=== PATIENT | female | born 1985 | race Caucasian/White ===

== ENCOUNTER 2019-12-21 14:39 | Emergency (ER) | payer SELFPAY ==
[2019-12-21 14:42] VITALS: BP 122/82; PULSE 110; RESP 16; TEMP 37.1; O2SAT 94; BMI 30.1
--- NOTE | 2019-12-21 15:12 | XRR_ITS ---
PROCEDURE INFORMATION: Exam: XR Left Hip with Pelvis when Performed Exam date and time: 12/21/2019 3:13 PM Age: 34 years old Clinical indication: Right hip; Patient HX: Denies trauma C/O hip pain TECHNIQUE: Imaging protocol: XR Left hip with pelvis when performed. Views: 2 or 3 views. COMPARISON: No relevant prior studies available. FINDINGS: Bones/joints: Unremarkable. No acute fracture. Soft tissues: Unremarkable. XR/XR hip LT 2-3V wo/w pel* [id number] IMPRESSION: No acute findings.
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
[2019-12-21 15:48] LABS: Basophils % 0.1 %; Eosinophils # 0.4 10^3/uL (0.0-0.8); Eosinophils % 4.1 %; Hematocrit 41.9 % (37.0-47.0); Hemoglobin 13.5 g/dL (11.5-15.3); Lymphocytes # 2.3 10^3/uL (0.8-4.8); Lymphocytes % 21.5 %; Mean Corpuscular HGB Conc 32.2 g/dL (30.0-36.0); Mean Corpuscular Volume 96.1 fL (81-99); Mean Platelet Volume 8.3 fL (7.4-10.4); Monocytes # 0.9 10^3/uL (0.2-0.9); Monocytes % 8.3 %; Neutrophils % 65.7 %; Nucleated Red Blood Cells % 0 %; Platelet Count 441 10^3/cmm (130-400); Red Blood Count 4.36 10^6/uL (4.1-5.3); Red Cell Distribution Width 12.8 % (12.1-15.1); White Blood Count 10.7 10^3/uL (4.0-10.0)
[2019-12-21 16:03] VITALS: RESP 18
[2019-12-21] MEDS: morphine 4 mg/mL SDV 1 mL IVP (16:03)
[2019-12-21] MEDS: ketorolac 30 mg/mL INJ IVP (16:07)
[2019-12-21] MEDS: orphenadrine 30 mg/mL Inj 2 mL 60 MG IVP (16:10)
--- NOTE | 2019-12-21 16:11 | USR_ITS ---
PROCEDURE INFORMATION: Exam: US Duplex Left Lower Extremity Veins, Limited Exam date and time: 12/21/2019 4:12 PM Age: 34 years old Clinical indication: Pain; Leg, upper and leg, lower; Left; Additional info: Leg pain TECHNIQUE: Imaging protocol: Real-time Duplex ultrasound of the Left Lower Extremity with 2-D loving scale, color Doppler flow and spectral waveform analysis with image documentation. Limited exam focused on the left lower extremity veins. COMPARISON: No relevant prior studies available. FINDINGS: Left deep veins: Unremarkable. The common femoral, femoral, proximal profunda femoral and popliteal veins are patent without thrombus. Normal Doppler waveforms. Normal compressibility and/or augmentation response. Left superficial veins: Unremarkable. Saphenofemoral junction is patent without thrombus. Soft tissues: Unremarkable. US/CV venous duplex [facility] [id number] IMPRESSION: No evidence of deep vein thrombosis.
--- NOTE | 2019-12-21 16:11 | CTR_ITS ---
PROCEDURE INFORMATION: Exam: CT Lumbar Spine Without Contrast Exam date and time: 12/21/2019 4:29 PM Age: 34 years old Clinical indication: Low back pain; Patient HX: C/O lle radicular pain ? injury during seizure; Additional info: L lag radicular pain TECHNIQUE: Imaging protocol: Computed tomography images of the lumbar spine without contrast. Radiation optimization: All CT scans at this facility use at least one of these dose optimization techniques: automated exposure control; mA and/or kV adjustment per patient size (includes targeted exams where dose is matched to clinical indication); or iterative reconstruction. COMPARISON: No relevant prior studies available. RADIATION DOSE METRICS: Total DLP (mGy-cm): 2341.13 FINDINGS: Vertebrae: No acute fracture. Normal alignment. L1-L2: No significant disc protrusion. No severe spinal canal stenosis. No significant neural foraminal narrowing. L2-L3: No significant disc protrusion. No spinal canal stenosis. No neural foraminal narrowing. L3-L4: No significant disc protrusion. No severe spinal canal stenosis. No significant neural foraminal narrowing. L4-L5: As best seen on series 4, image 60, there is an asymmetric disc bulge. This, along with ligamentum flavum hypertrophy, results in moderate central canal stenosis. This disc bulge also extends to the foraminal and extraforaminal space on the left resulting in mass effect on the exiting left L4 nerve root. L5-S1: There is left paracentral disc protrusion and osteophyte as seen on series 4, image 71 resulting in moderate central canal stenosis. No significant neural foraminal narrowing. Soft tissues: Unremarkable. CT/CT lumbar spine wo con* [id number] IMPRESSION: Degenerative change is identified in the spine at L4/5 and L5/S1 as described above. If there is desire for further evaluation, a MRI could be performed. Radiation Dose CTDIVOL = (mGy): DLP = 2341.13 (mGy-cm)
[2019-12-21 16:25] LABS: Erythrocyte Sedimentation Rate 39 mm/hr (0-15)
--- NOTE | 2019-12-21 16:27 | CTR_ITS ---
PROCEDURE INFORMATION: Exam: CT Left Lower Extremity Without Contrast, Hip Exam date and time: 12/21/2019 4:29 PM Age: 34 years old Clinical indication: Left; Patient HX: C/O lle/hip pain ? injury during seizure TECHNIQUE: Imaging protocol: CT of the Left lower extremity without contrast was performed. Exam focused on the hip. Radiation optimization: All CT scans at this facility use at least one of these dose optimization techniques: automated exposure control; mA and/or kV adjustment per patient size (includes targeted exams where dose is matched to clinical indication); or iterative reconstruction. COMPARISON: CR (PELVIS, ) 12/21/2019 3:38 PM RADIATION DOSE METRICS: Total DLP (mGy-cm): 811.64 FINDINGS: Bones/joints: No acute fracture or dislocation. No significant joint space narrowing or osteophyte formation. Soft tissues: Normal. CT/CT hip LT wo con* [id number] IMPRESSION: There are no acute concerning abnormalities. Radiation Dose CTDIVOL = (mGy): DLP = 811.64 (mGy-cm)
[2019-12-21 18:27] VITALS: BP 120/77; PULSE 101; RESP 18; O2SAT 95
== END 2019-12-21 18:29 | disposition home or self-care (01) ==
PROVIDERS: Emergency Provider Family Medicine; PCP Nurse Practitioner
DX: M51.16 Intervertebral disc disorders with radiculopathy, lumbar region (principal); F17.210 Nicotine dependence, cigarettes, uncomplicated; I10 Essential (primary) hypertension
CPT/HCPCS: 12345; 36415; 72131; 73502; 73700; 85025; 85651; 93971; 96374; 96375; 99281; 99283; J1885; J2270; J2360; J2930

== ENCOUNTER → 2020-03-02 13:17 | Outpatient (BNVA) | payer MEDICAID, SELFPAY | PROVIDERS: PCP Nurse Practitioner; Visit Provider Nurse Practitioner Family | DX: N92.6 Irregular menstruation, unspecified (principal); K21.9 Gastro-esophageal reflux disease without esophagitis; R11.2 Nausea with vomiting, unspecified | CPT/HCPCS: 81025 ==

== ENCOUNTER 2020-03-23 10:06 | Emergency (ER) | payer MEDICAID, SELFPAY ==
[2020-03-23 11:06] VITALS: BP 155/102; PULSE 84; RESP 18; TEMP 36.7; O2SAT 100; BMI 35.4
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
== END 2020-03-23 11:52 | disposition home or self-care (01) ==
PROVIDERS: Emergency Provider Family Medicine; PCP Nurse Practitioner
DX: K08.89 Other specified disorders of teeth and supporting structures (principal); J01.00 Acute maxillary sinusitis, unspecified; I10 Essential (primary) hypertension; Z87.891 Personal history of nicotine dependence
CPT/HCPCS: 12345; 99281; 99282

== ENCOUNTER 2020-03-24 11:40 | Emergency (ER) | payer MEDICAID, SELFPAY ==
[2020-03-24 11:44] VITALS: BP 140/95; PULSE 76; RESP 14; TEMP 36.7; O2SAT 97; BMI 35.4
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
[2020-03-24] MEDS: HYDROcodone-acetaminophen 7.5-325 mg Tablet 1 TAB PO (12:32)
[2020-03-24] MEDS: ondansetron 4 MG Tablet PO (12:32)
[2020-03-24 12:44] VITALS: BP 134/84; PULSE 78; RESP 14; O2SAT 98
== END 2020-03-24 12:45 | disposition home or self-care (01) ==
PROVIDERS: Emergency Provider Nurse Practitioner Family; PCP Nurse Practitioner
DX: K04.7 Periapical abscess without sinus (principal); I10 Essential (primary) hypertension; Z87.891 Personal history of nicotine dependence
CPT/HCPCS: 12345; 99281; 99283; Q0162

== ENCOUNTER → 2020-04-02 10:25 | Outpatient (BNVA) | payer MEDICAID, SELFPAY | PROVIDERS: PCP Nurse Practitioner; Referring Provider Dermatology; Visit Provider Orthopaedic Surgery | DX: M51.27 Other intervertebral disc displacement, lumbosacral region (principal); M54.9 Dorsalgia, unspecified | CPT/HCPCS: 72114 ==

== ENCOUNTER 2020-04-07 07:30 | Outpatient (CLI) | payer MEDICAID, SELFPAY ==
--- NOTE | 2020-04-07 08:00 | MR_ITS ---
WS: [id number] MRI LUMBAR SPINE NONCONTRAST TECHNIQUE: Sagittal T1, T2 and STIR imaging. Axial T1 and T2 imaging. CLINICAL INFORMATION: M54.9 - Dorsalgia, unspecified COMPARISON: CT lumbar December 21, 2019 FINDINGS: Mild lumbar curve. No acute compression. Disc bulging worse L4-L5 and L5-S1. L1-L2: Normal. L2-L3: No significant disc bulging. Mild facet arthropathy. Spinal canal and foramen are patent. L3-L4: No significant disc bulging. Moderate facet arthropathy. Spinal canal and foramen are patent. L4-L5: Mild disc bulging with small shallow left subarticular protrusion. This impinges the traversin g left L5 nerve root in the subarticular recess. Correlation left L5 nerve root symptoms. Mild central canal stenosis. Mild right and no significant l eft foraminal narrowing. Moderate facet arthropathy. L5-S1: Mild disc bulging with a small shallow left pericentral protrusion. This impinges the traversi ng left S1 nerve root in the subarticular recess. Mild facet arthropathy. Foramen are patent. Visualized pelvic bony structures: Normal. Paravertebral soft tissues: Normal. MR/MR lumbar spine wo con* [id number] IMPRESSION: 1. Left subarticular disc protrusion L4-5 impinges the traversing left L5 nerv e root. Recommend correlation for L5 nerve root symptoms. Mild central canal st enosis at this level. 2. Smaller left pericentral protrusion L5-S1 slightly impinges the traversing left S1 nerve root. Recommend correlation left S1 nerve root symptoms. 3. Moderate facet arthropathy L3-L4 and L4-L5.
== END 2020-04-07 07:31 | disposition home or self-care (01) ==
PROVIDERS: PCP Nurse Practitioner; Visit Provider Orthopaedic Surgery
DX: M47.816 Spondylosis without myelopathy or radiculopathy, lumbar region (principal); M51.27 Other intervertebral disc displacement, lumbosacral region; M51.26 Other intervertebral disc displacement, lumbar region
CPT/HCPCS: 72148

== ENCOUNTER → 2020-04-22 18:02 | Outpatient (BNVA) | payer MEDICAID, SELFPAY | PROVIDERS: PCP Nurse Practitioner; Visit Provider Orthopaedic Surgery | DX: M48.062 Spinal stenosis, lumbar region with neurogenic claudication (principal) | CPT/HCPCS: 87635 ==

== ENCOUNTER 2020-04-27 07:52 | Day surgery (SDC) | payer MEDICAID, SELFPAY ==
[2020-04-24 12:40] VITALS: BMI 35.4
[2020-04-27] VITALS (7 sets, daily range): BP systolic 105–146; BP diastolic 83–114; PULSE 73–97; RESP 8–19; TEMP 36.1–36.6; O2SAT 94–100
--- NOTE | 2020-04-27 | SCC_ITS ---
Procedure Done: 1. Laminectomy L4/5 with partial facetectomy 2. Laminectomy L5/S1 with partial facetectomy 19.0 seconds of fluoroscopic guidance, for a cumulative dose of 7.59 mGy, was provided to Dr. Gupta by the radiology department. C-arm images of the lumbar spine were saved for the patient's permanent record. [facility]
--- NOTE | 2020-04-27 | XR_ITS ---
WS: [id number] C-ARM RADIOGRAPHS LUMBAR SPINE; 4 IMAGES HISTORY: L4/L5 L5/S1 MIS decompression COMPARISON: 04/07/2020 Intraoperative imaging during L4-5 and L5-S1 decompression. XR/XR lumbar spine 2-3V* [id number] IMPRESSION: Intraoperative imaging during decompression surgery lumbar spine.
[2020-04-27 08:13] LABS: OR HCG Qualitative Urine Negative (Negative)
[2020-04-27] MEDS: sodium chloride 0.9% 1,000 ML 30 ML IV (08:24)
--- NOTE | 2020-04-27 08:25 | W.PM.OPSUD ---
Surgery/Procedure H&P Update DATE OF PROCEDURE: April 27, 2020 DATE H&P PERFORMED: 04/10/20 H&P UPDATE INFORMATION: I have reviewed H&P completed within last 30 days, I have examined patient prior to procedure and No changes to prior documentation PLANNED PROCEDURE: Operation Date: 04/27/20 09:40 Proposed Procedures p L 4/5 L5/S1 MIS decompression [id number] M48.06(Bilateral) - Billy Gupta DO
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
[2020-04-27] MEDS: midazolam 1 mg/mL INJ 2 mL 2 MG IVP (08:40)
--- NOTE | 2020-04-27 10:56 | PM.OP ---
Operative Report Date of procedure: April 27, 2020 Pre-op Diagnosis: Lumbar stenosis L4/5 and L5/S1 Post-op diagnosis: same Procedure Done: 1. Laminectomy L4/5 with partial facetectomy 2. Laminectomy L5/S1 with partial facetectomy Surgeon: Billy Gputa Anesthesia: General Estimated blood loss (mL): 5 Condition: stable Disposition: PACU Procedure: 1. Laminectomy L4/5 with partial facetectomy 2. Laminectomy L5/S1 with partial facetectomy Patient is brought to the operative suite. After undergoing anesthesia they are placed in the supine position. All areas of impingement are well padded. Patient is then prepped and draped in the normal sterile fashion. A skin incision is made over the L4/5/S1 level. This is confirmed under c-arm guidance. A series of dilators are passed and the tubular retractor is docked on the L4 lamina. A bovie is used to clear the soft tissue off the lamina and the L 4/5 facet joint. A high speed neetu is then used to perform the laminectomy and take down the medial aspect of the L 4/5 facet joint. A kerrison rongeure was then used to take down the remaining lamina and smooth the edge of the laminectomy up to the point where the ligamentum flavum attaches. Attention was then brought to the medial aspect of the facet joint. The remaining medial aspect of the superior and inferior aspect of the facet joint were taken down with the kerrison from the pedicle of L4 to L 5. The facet joint had significant hypertrophy. Attention was then brought to the Ligamentum Flavum. The ligament was taken down from the lamina of L4 to L5 and out medially to the remaining facet joint. The ligament was thickened. The dura was then exposed. The dura was in good repair. The L4 nerve was then traced with a curette out the L4/5 foramen and found to be adequately decompressed. The L5 nerve was traced with a curette around the L5 pedicle. The lateral recess was opened with a kerrison helping to further decompress the L5 nerve. Next attention was brought to the L5-S1 level. A series of dilators are passed and the tubular retractor is docked on the L4 lamina. A bovie is used to clear the soft tissue off the lamina and the L 5/S1 facet joint. A high speed neetu is then used to perform the laminectomy and take down the medial aspect of the L 5/S1 facet joint. A kerrison rongeure was then used to take down the remaining lamina and smooth the edge of the laminectomy up to the point where the ligamentum flavum attaches. Attention was then brought to the medial aspect of the facet joint. The remaining medial aspect of the superior and inferior aspect of the facet joint were taken down with the kerrison from the pedicle of L5 to S1. The facet joint had significant hypertrophy. Attention was then brought to the Ligamentum Flavum. The ligament was taken down from the lamina of L5 to S1 and out medially to the remaining facet joint. The ligament was thickened. The dura was then exposed. The dura was in good repair. The L5 nerve was then traced with a curette out the L5/S1 foramen and found to be adequately decompressed. The L5 nerve was traced with a curette around the S1 pedicle. The lateral recess was opened with a kerrison helping to further decompress the S1 nerve. This space was inspected. There is no evidence of any free disc or disc impinging on the S1 nerve after the decompression was completed. At this point I elected to leave the disc alone. Wound is then irrigated copiously with saline and surgiflo is used to stop any bleeding. The tubular retractor is removed and the wound is closed with vicryl and monocryl suture. Glue is then used to protect the wound. A sterile dressing is then placed. Patient was then placed in the supine position and transferred to the PACU in stable condition.
--- NOTE | 2020-04-27 11:14 | P.PCN_ITS ---
PACU note PACU note: VSS, Good respiratory effort, report to RAILROAD POLICE OFFICER Post-Anesthesia Exam: awake
--- NOTE | 2020-04-27 11:14 | PM.PACU ---
PACU note PACU note: VSS, Good respiratory effort, report to RISK PROFESSIONAL Post-Anesthesia Exam: awake
[2020-04-27] MEDS: fentaNYL 50 mcg/mL INJ 2mL IVP (11:20)
--- NOTE | 2020-04-27 11:30 | SUR.PHASEI ---
PT RESTING QUIETLY WITH NO S/S OF PAIN , VSS IV PATENT SCDS ON BILAT, PT MOVES ALL EXT TO COMMAND, PT ON RA TRIAL.
[2020-04-27] MEDS: HYDROcodone-acetaminophen 5-325 mg Tablet 1 TAB PO (11:53)
== END 2020-04-27 12:22 | disposition home or self-care (01) ==
PROVIDERS: Anesthesiology; PCP Nurse Practitioner; Visit Provider Orthopaedic Surgery
PROC: (CPT 63005; principal; 2020-04-27 09:10)
DX: M48.061 Spinal stenosis, lumbar region without neurogenic claudication (principal); I10 Essential (primary) hypertension; Z87.891 Personal history of nicotine dependence
CPT/HCPCS: 63047; 63048; 12345; 72100; 76000; 84703; 96374; J0690; J1100; J2250; J2405; J2704; J2710; J3010; J3490; J7030

== ENCOUNTER 2020-07-13 12:42 | Outpatient (CLI) | payer MEDICAID, SELFPAY ==
--- NOTE | 2020-07-13 12:56 | MR_ITS ---
WS: [id number] MRI LUMBAR SPINE NONCONTRAST HISTORY: M54.5 - Low back pain COMPARISON: 04/07/2020 TECHNIQUE: Sagittal and axial multisequence imaging is submitted. Mild straightening of the normal lumbar lordosis. Mild disc space narrowing and desiccation at L4-5 a nd L5-S1. No marrow edema or fracture. New postsurgical changes are noted in the paravertebral soft tissues at the L4-5 level. There is a small amount of fluid and edema surrounding the L4-5 facet joints. Conus terminates normally at L1. L1-L2: Normal. L2-L3: Normal. L3-L4: Mild annular disc bulging with slight effacement of the ventral thecal sac. No stenosis. L4-L5: Mild annular disc bulge. There is encroachment upon the ventral thecal sac by disc disease and facet arthritis. Annular fissure in the LEFT paracentral disc. There is soft tissue encroachment upo n the LEFT L5 nerve root and slight compressing of the nerve root. Very similar to the prior study. T here is mild bulging of the disc extending into the LEFT foramen. Increase fluid in the facet joints bilaterally with mild widening of the facet joint. There is a new LEFT hemilaminectomy defect. Partia l debridement of the ligamentum flavum on the LEFT. L5-S1: Mild annular disc bulging with a central disc protrusion contacting the ventral thecal sac. Di sc encroaches upon and abuts the LEFT S1 nerve root. S1 nerve root is slightly greater than the RIGHT and there is more displacement. Mild bilateral foraminal narrowing and subarticular recess narrowing . Similar to the prior study. MR/MR lumbar spine wo con* [id number] IMPRESSION: 1. Status post surgical changes at L4-5 with a LEFT hemilaminectomy defect. No postcontrast imaging submitted. 2. Disc osteophyte complex persists in the LEFT subarticular recess at L4-5 en croaching upon and slightly displacing the LEFT L5 nerve root. Similar to the p rior study. Mild central stenosis at L4-5. 3. Increased fluid with slight widening of the L3-4 facet joints. 4. Central disc protrusion contacting the ventral thecal sac and the LEFT S1 n erve root similar to the prior study. Mild bilateral foraminal and subarticular recess narrowing, greatest on the LEFT.
== END 2020-07-13 12:43 | disposition home or self-care (01) ==
LOC: RADWPI 12:51
PROVIDERS: PCP Nurse Practitioner; Visit Provider Orthopaedic Surgery
DX: M54.5 Low back pain (principal); M53.3 Sacrococcygeal disorders, not elsewhere classified; M48.061 Spinal stenosis, lumbar region without neurogenic claudication; M25.78 Osteophyte, vertebrae
CPT/HCPCS: 72148

== ENCOUNTER → 2020-07-21 16:51 | Outpatient (BNVA) | payer MEDICAID, SELFPAY | PROVIDERS: PCP Family Medicine; Visit Provider Family Medicine | DX: Z01.818 Encounter for other preprocedural examination (principal) | CPT/HCPCS: 71046 ==

== ENCOUNTER → 2020-08-05 16:31 | Outpatient (BNVA) | payer MEDICAID, SELFPAY | PROVIDERS: PCP Family Medicine; Visit Provider Orthopaedic Surgery | DX: Z01.812 Encounter for preprocedural laboratory examination (principal); Z20.822 Contact with and (suspected) exposure to COVID-19 | CPT/HCPCS: 87635 ==

== ENCOUNTER 2020-08-10 12:24 | Observation (INO) | payer MEDICAID, SELFPAY ==
[2020-08-03 10:37] VITALS: BMI 39.1
[2020-08-03 11:18] LABS: Basophils % 0.2 %; Eosinophils # 0.4 10^3/uL (0.0-0.8); Eosinophils % 3.9 %; Hematocrit 42.5 % (37.0-47.0); Hemoglobin 13.6 g/dL (11.5-15.3); Lymphocytes # 2.5 10^3/uL (0.8-4.8); Lymphocytes % 26.9 %; Mean Corpuscular Hemoglobin 31.4 pg (28.0-34.0); Mean Corpuscular Volume 98.2 fL (81-99); Mean Platelet Volume 8.7 fL (7.4-10.4); Monocytes # 0.8 10^3/uL (0.2-0.9); Monocytes % 8.8 %; Neutrophils # 5.47 10^3/uL (1.8-7.7); Nucleated Red Blood Cells % 0 %; Platelet Count 473 10^3/cmm (130-400); Red Blood Count 4.33 10^6/uL (4.1-5.3); Red Cell Distribution Width 12.5 % (12.1-15.1); White Blood Count 9.1 10^3/uL (4.0-10.0)
[2020-08-03 11:32] LABS: Blood Urea Nitrogen 14 mg/dL (6-20); Carbon Dioxide 26 mmol/L (22-29); Chloride 101 mmol/L (98-107); Glomerular Filtration Rate 95.2 mL/min (90-130); Glucose 97 mg/dL (65-115); Osmolality Calculated 284 mOsm/kg (285-295); Sodium 137 mmol/L (136-145)
[2020-08-03 11:34] LABS: Anion Gap 14.7 (5-19); Potassium 4.7 mmol/L (3.5-5.1)
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
[2020-08-10] VITALS (18 sets, daily range): BP systolic 91–141; BP diastolic 69–85; PULSE 80–97; RESP 14–20; TEMP 36.2–37.1; O2SAT 92–99
--- NOTE | 2020-08-10 | XRR_ITS ---
PROCEDURE INFORMATION: Exam: XR Spine; Lumbar Exam date and time: 08/11/2020 11:58 AM Age: 34 years old Clinical indication: Device placement; Other: Not specifed; Prior surgery; Surgery date: Post-operative (0-2 days); Additional info: Or pics TECHNIQUE: Imaging protocol: XR of the spine. Exam focused on the lumbar spine. Views: Single lateral view. COMPARISON: MR lumbar spine wo con* [id number] 07/13/2020 1:09 PM FINDINGS: Bones/joints: Bilateral interval L4 and L5 pedicle screw systems imaged in the lateral plane, which appear well positioned. Soft tissues: Normal. XR/XR lumbar spine 1V [id number] IMPRESSION: Postoperative changes as above.
--- NOTE | 2020-08-10 | SCC_ITS ---
Procedure Done: 1. L4/5 Interbody fusion with posterolateral fusion 2. L5/S1 Interbody fusion with posterolateral fusion 3. Instrumentation L4-S1 4. Cage L5/S1 5. Cage at L4/5 6. Laminectomy revison L4 for decompression of nerve 7. Lamimectomy revision L5 for decompression of nerve 8. use of autograft from same incision 9. allograft 10. Bone marrow aspirate from Right iliac crest 44.3 seconds of fluoroscopic guidance, for a cumulative dose of 21.83 mGy, was provided to Dr. Gupta by the radiology department. C-arm images of the lumbar spine were saved for the patient's permanent record. [facility]
--- NOTE | 2020-08-10 06:37 | W.PM.OPSUD ---
Surgery/Procedure H&P Update DATE OF PROCEDURE: August 10, 2020 DATE H&P PERFORMED: 07/14/20 H&P UPDATE INFORMATION: I have reviewed H&P completed within last 30 days, I have examined patient prior to procedure and No changes to prior documentation PREOP DIAGNOSIS: lumbar stenosis PLANNED PROCEDURE: Operation Date: 08/10/20 07:00 Proposed Procedures p Posterior Lumbar Interbody Fusion PLIF L4/5 L5/S1 [id number] 63711,60254, 96915, 26005, 26669, 28149 m48.062(Not Applicable) - Billy Gupta DO
[2020-08-10] MEDS: sodium chloride 0.9% 1,000 ML 30 ML IV (06:45)
--- NOTE | 2020-08-10 07:16 | P.ANESUD_ITS ---
Pre-Anesthetic Update Pre-Anesthetic Assessment: Date of Surgery/Procedure: 08/10/20 Preop Cyndy gnosis: lumbar stenosis Proposed Procedure: Operation Date: 08/10/20 07:00 Proposed Procedures p Posterior Lumbar Interbody Fusion PLIF L4/5 L5/S1 [id number] 79339,58059, 52531, 09314, 21561, 00268 m48.062(Not Applicable) - Billy Gupta, DO Any changes to Pre-Anesthetic Assessment?: No Vitals: Temperature 98.3 F 08/10/20 06:13 Temperature Source Temporal Artery S can 08/10/20 06:13 Pulse Rate 81 08/10/20 06:13 Respiratory Rate 16 08/10/20 06:13 Blood Pressure 118/76 08/10/20 06:13 Blood Pressure Pepper n 90 08/10/20 06:13 Pulse Oximetry 97 08/10/20 06:13 Oxygen Delivery Me thod 08/10/20 06:28 Exam: Pre-Anes Outpt Exam: alert, oriented x 3, clear to auscultation bilaterally and regular rate & rhythm Cardiac Studies: No Data to Display
[2020-08-10] MEDS: heparin, porcine 1,000 unit/mL INJ 10 mL 10000 UNIT IRRIGATION (08:11)
--- NOTE | 2020-08-10 09:27 | XR_ITS ---
WS: [id number] C-ARM RADIOGRAPHS LUMBAR SPINE 4; IMAGES HISTORY: SURGERY COMPARISON: 04/27/2020 Intraoperative imaging during lumbar fusion. Pedicle screws extend from L4 to S1. Vertical rods are p resent. Interbody spacers at L4-5 and L5-S1. XR/XR lumbar spine 2-3V* [id number] IMPRESSION: Intraoperative imaging during posterior lumbar fusion from L4 to S1.
[2020-08-10] MEDS: ceFAZolin 1,000 mg SDV 2000 MG IVP (11:48)
--- NOTE | 2020-08-10 12:42 | P.OP_ITS ---
Operative Report Date of procedure: August 10, 2020 Pre-op Diagnosis: lumbar stenosis Post-op diagnosis: same Procedure Done: 1. L4/5 Interbody fusion with posterolateral fusion 2. L5/S1 Interbody fusion with posterolateral fusion 3. Instrumentation L4-S1 4. Cage L5/S1 5. Cage at L4/5 6. Laminectomy revison L4 for decompression of nerve 7. Lamimectomy revision L5 for decompression of nerve 8. use of autograft from same incision 9. allograft 10. Bone marrow aspirate from Right iliac crest Surgeon: Billy Gupta Anesthesia: General Estimated blood loss (mL): 100 Condition: stable Disposition: PACU Procedure: mentation L4-S1 4. Cage L5/S1 5. Cage at L4/5 6. Laminectomy revison L4 for decompression of nerve 7. Lamimectomy revision L5 for decompression of nerve 8. use of autograft from same incision 9. allograft 10. Bone marrow aspirate from Right iliac crest Patient is brought to the operative suite. After undergoing anesthesia, the patient had neuro monitoring attached. Patient was then placed in the prone position on the Prabhu table. All areas of impingement were well-padded. Patient was then prepped and draped in the normal sterile fashion. Skin incision was then made over the L4- S1 spaces. Subperiosteal dissection was made out to the transverse processes of L4 and L5 and S1. Once the exposure was complete attention was then brought to placing the pedicle screws. Prior to placing the pedicle screws the [employer] bone marrow aspirate kit was used to aspirate bone marrow aspirate from Right iliac crest. This was done by using the sharp probe to open up the bone. Aspiration was performed and then the blunt probe was then used to dissect down to through the bone tunnel. An aspirating well drawn back a millimeter approximately 20 cc of bone marrow aspirate was used. Admixed with the allograft and autograft bone that will be used. The technique for placing the pedicle screws was to use a drill followed by the gearshift probe. Followed by the ball probe to feel the superior inferior medial lateral madrid of the pedicles. Then placement of the screws. Was done at each pedicle. Screws were placed at L4 bilaterally and L5 and S1. Next attention was brought to performing the laminectomy ofL4. There was significant scar tissue this was peeled off of the dura. This was done using the high-speed bur Kerrisons and curettes. Once the lamina was removed and then attention was brought to performing a partial facetectomy on the contralateral side. This was done again using the high-speed bur curettes and Kerrisons. The ligamentum flavum was taken down bilaterally from L4 to L5. Attention was then brought to the facet on the ipsilateral side. The facet was taken down. The L5 nerve was decompressed as it passed around the L5 pedicle. The laminectomy was done for purposes of decompressing the nerve as well as placement of the cage. The L4 nerve was identified as it traversed through the L4/5 foramen. The thecal sac was identified and retracted. The L4/5 disc base was identified. Using a knife the disc base was opened. And then sequential quoc were placed. The first shaver was a 6 and the last shaver was a 10. Using a pituitary and down going curette the endplates were scraped and disc material was removed from the space. Once adequate decompression of the disc base was felt to be had. Osteoamp sponge was packed into the anterior aspect of the disc base. Then a size 10 cage from Jackelin was placed after packing osteoamp into the cage. While placing the cage the thecal sac and L5 nerve was protected. C arm was used to ensure that the cages placed in the appropriate position. Next attention was brought to performing the laminectomy ofL5. This was done using the high-speed bur Kerrisons and curettes. Once the lamina was removed and then attention was brought to performing a partial facetectomy on the contralateral side. This was done again using the high-speed bur curettes and Kerrisons. The ligamentum flavum was taken down bilaterally from L5 to S1. Attention was then brought to the facet on the ipsilateral side. The facet was taken down. The S1 nerve was decompressed as it passed around the S1 pedicle. The laminectomy was done for purposes of decompressing the nerve as well as placement of the cage. The L5 nerve was identified as it traversed through the L5/S1 foramen. The thecal sac was identified and retracted. The L5/S1 disc base was identified. Using a knife the disc base was opened. And then sequential quoc were placed. The first shaver was a 6 and the last shaver was a 9. Using a pituitary and down going curette the endplates were scraped and disc material was removed from the space. Once adequate decompression of the disc base was felt to be had. Osteoamp sponge was packed into the anterior aspect of the disc base. Then a size 9 cage from Jackelin was placed after packing osteoamp into the cage. While placing the cage the thecal sac and S1 nerve was protected. C arm was used to ensure that the cages placed in the appropriate position. Attention was then brought to attaching the rods to the screws placed in the L4, L5 and S1 bilaterally. Caps were torqued into position. Locking the construct in place. Wound was copiously irrigated and then attention was brought to decorticating the facets and transverse processes laterally. Bone that was taken down from the lamina was used along with osteoamp fibers and sponges were packed into the lateral gutters along the facet joints. This was done bilaterally. Wound was then closed in a layered fashion starting with the thoracolumbar fascia. 0-stratafixwas used the sub cutaneous tissue was closed with 2-0 vstratafix and skin with 3-0 nylon. Glue was then used to seal the skin and a steril dressing was applied. Patient was then placed in the supine position. The endotracheal tube was removed and patient was transferred to the PACU in stable condition.
[2020-08-10] MEDS: ketorolac 30 mg/mL INJ IVP (13:34)
[2020-08-10] MEDS: lactated ringers 1,000 ML 90 ML IV ×2 (14:12→23:42)
[2020-08-10] MEDS: gabapentin 400 mg Capsule 800 MG PO ×2 (14:12→20:58)
[2020-08-10] MEDS: hyDROXYzine 25 mg Capsule 50 MG PO (14:34)
[2020-08-10] MEDS: baclofen 10 mg Tablet PO (14:35)
--- NOTE | 2020-08-10 14:50 | PC.NURSE ---
During rounding, patient stated she was in severe pain and was noted to have shallow breathing and was notably upset. I called and spoke with Dr. Gupta and informed him that the patient had taken Hydrocodone and Toradol and her pain continued to be uncontrolled. He provided a verbal order for Morphine 2 mg IVP every 2 hours for severe, breakthrough pain if PO medications do not effectively control pain. I spoke with Karen Martinez RN and informed her of the above information. She verbalizes understanding.
[2020-08-10] MEDS: morphine 4 mg/mL SDV 1 mL 2 MG IVP ×3 (14:55→23:40)
--- NOTE | 2020-08-10 14:56 | ANE.PACU2 ---
Inpatient post-anesthesia follow up: Airway intact: Yes Vital signs: Temperature 98.0 F Pulse Rate 83 Respiratory Rate 19 Blood Pressure 140/69 Pulse Oximetry 98 Oxygen Delivery Me thod Nasal Cannula Oxygen Flow Rate 6 Fraction of Inspir ed Oxygen Hydration adequate: Yes Nausea and vomiting: No Pain level: 3 Mental status: Baseline
[2020-08-10] MEDS: albuterol 8 gm MDI 1 PUFF INHALATION (16:03)
--- NOTE | 2020-08-10 16:42 | PC.NURSE ---
At approximately 1615, patient continued to be in increased pain and Presley Martinez RN was going to administer additional dose of Hydrocodone-APAP per range protocol, however the MAR would not allow for additional scanning of the additional tablet d/t the PRN dose not being at the minimum of the 3 hour yamile to administer the medication again. I called and spoke with Lavell Shearer, pharmacist and he states he isn't sure how to do this and would suggest adding a 1-time dose order to administer the medication. I called and spoke with Anurag Hernandez in IT and he initiated a ticket with nursing IT to help. I received a return call from Ariane Miranda RN in IT at approximately 1640 and she states to undo the administration that occurred at 1413, make a new administration when administering the 2nd tablet and make an administration comment stating that the first dose was given at 1413 while IT looks for a terminal press operator solution for this. I spoke with Presley Martinez RN and informed her of this. She verbalizes understanding and states she will have Halie Rivera RN undo her documentation at 1413 and Karen will administer the additional tablet and make an administration note to support both tablets being given.
[2020-08-10] MEDS: HYDROcodone-acetaminophen 5-325 mg Tablet PO ×2 (16:48→21:08)
--- NOTE | 2020-08-10 16:52 | PC.NURSE ---
1 [place] 5-325 administered at 1415 by Halie Rivera RN. Patient still rating pain 10/10 after various pain medications. Halie undocumented her medication administration so that I could give a second pill for the patients severe pain. at 1648 I administered another [place] 5-325. I personally documented 2 norcos to document the one given by myself and Halie.
[2020-08-10] MEDS: BuSPIRONE 10 mg Tablet PO (18:52)
[2020-08-10] MEDS: docusate sodium 100 mg Capsule PO (18:52)
[2020-08-10] MEDS: propranolol 40 mg Tablet PO (18:52)
[2020-08-10] MEDS: levETIRAcetam 500 mg Tablet PO (18:52)
[2020-08-11] MEDS: HYDROcodone-acetaminophen 5-325 mg Tablet PO ×2 (01:41→07:54)
[2020-08-11 04:40] VITALS: BP 144/85; PULSE 86; RESP 18; TEMP 36.7; O2SAT 96
[2020-08-11 05:50] VITALS: RESP 17
[2020-08-11] MEDS: morphine 4 mg/mL SDV 1 mL 2 MG IVP (05:50)
[2020-08-11] MEDS: enoxaparin 40 mg/0.4 mL Syringe SUBCUT (06:13)
--- NOTE | 2020-08-11 06:18 | PM.DCS ---
Discharge Providers Date of Admission: 08/10/20 12:24 Date of Discharge: August 11, 2020 Attending Provider at Admission: Billy Gupta DO Attending Provider at Discharge: Billy Gupta DO Primary Care Provider: Citlaly Stevens MD Reason for Visit Reason for Visit: PLIF L4/5 L5/S1 [id number],[id number] 98737,40239, 17086, 22 Physical Exam Narrative: EXAM NARRATIVE: Patient doing well pain controlled has been up walking. Pain that she was having has resolved. Urinary Catheter Management^: F: Cath Placed During This Visit: yes, but has since been removed by the nurse Reason for Continuing Indwelling Catheter: Decision to DC Catheter Urinary Catheter Date of Insertion: 08/10/20 Urinary Catheter Time of Insertion: 07:20 Date Urinary Catheter Removed: 08/10/20 Time Urinary Catheter Discontinued: 13:00 Discharge Data Data Completed and Pending: Pending at discharge Category Date Time Status C-arm Fluoroscopy 21792 Routine Exams 08/10/20 06:03 Taken XR lumbar spine 1 V port 40799 Routi ne Exams 08/10/20 Taken XR lumbar spine 2 -3V* [id number] Routine Exams 08/10/20 09:27 Taken Vitals: Last Vital Signs Temp 98.1 F 08/11/20 04:40 Pulse 86 08/11/20 04:40 Resp 17 08/11/20 05:50 BP 144/85 08/11/20 04:40 Pulse Ox 96 08/11/20 04:40 Discharge Plan Discharge Patient Disposition: Home Condition: Stable Prescriptions: New hydrocodone-acetaminophen 5-325 mg tablet 1 - 2 tab PO .Q4-6H Qty: 40 RF: 0 Continued bmpbzpthqo-xxbvdyhommdyt-kvml [Esgic] 50-325-40 mg tablet 1 tab PO Q6H PRN (Reason: pain) Qty: 30 RF: 2 gabapentin 800 mg tablet 800 mg PO TID Qty: 90 RF: 2 propranolol 40 mg tablet 40 mg PO BID Qty: 60 RF: 2 zonisamide [Zonegran] 100 mg capsule 100 mg PO DAILY Qty: 30 RF: 2 buspirone 10 mg tablet 10 mg PO BID Qty: 60 RF: 3 rizatriptan [Maxalt-LIBRARY CIRCULATION TECHNICIAN] 10 mg tablet,disintegrating See Rx Instructions PO .COMPLEX Qty: 12 RF: 4 fluticasone propionate 50 mcg/actuation spray,suspension 2 spray INTRANASAL DAILY Qty: 16 RF: 2 albuterol sulfate 90 mcg/actuation HFA aerosol inhaler 1 inh INHALATION QID PRN (Reason: shortness of breath or wheezing) Qty: 18 RF: 2 Qvar RediHaler 80 mcg/actuation HFA aerosol breath activated 1 inh INHALATION BID Qty: 10.6 RF: 2 Aimovig Autoinjector 140 mg/mL auto-injector 140 mg SUBCUT .monthly Qty: 1 RF: 11 (DME) Bone growth Stimulator E0748 See Rx Instructions .Route .MEDSUPPLY Qty: 1 RF: 0 hydrocodone-acetaminophen 5-325 mg tablet 1 tab PO Q8H PRN (Reason: pain) 7 Days Qty: 60 RF: 0 levetiracetam [Keppra] 500 mg tablet 500 mg PO BID RF: 0 baclofen 10 mg tablet 10 mg PO TID PRN (Reason: Migraine Headache) RF: 0 ibuprofen 200 mg Capsule 400 mg PO Q6H PRN (Reason: Pain) RF: 0 hydroxyzine HCl 50 mg tablet 50 mg PO TID PRN (Reason: Migraine Headache) RF: 0 Discharge Orders: Discharge Order (Routine); Ordered 08/11/20 Ordered By: Billy Gupta Discharge Diet: Advance as tolerated and Regular Discharge Activity: Limit activity as instructed Patient Instructions: Opioid Safety Activity Restrictions/Additional Instructions: Thank you for [facility] for your care! The following is a list of instructions, from your provider, to follow upon your discharge to ensure you have the optimal recovery from your recent injury orsurgery. Follow-up care is a jesus part of your treatment and safety. Be sure to make and go to all appointments, and call your doctor if you are having problems. If you do not already have a follow-up appointment made, call Dr. Gupta office in the next 1-3 days to make follow up appointment for 2-1/2-3 weeks at [phone]. It is also a good idea to know your test results and keep a list of the medicines you take. Medications will be prescribed for you at your provider's discretion. These medications are to be used as instructed; if they are taken more often that prescribed they will not be refilled early and in most cases will not be refilled at all. > When a refill is needed,you should contact [facility] 2-3 business days before your prescription runs out. Medications will NOT be refilled by [employer] certified network professional providers after hours! > Many pain medications contain Tylenol (Acetaminophen). Do not consume more than 4,000 mg of Tylenol per day in total with any combination ofmedications. > Pain medications can cause constipation. Please use an over the counter stool softener as directed, while taking pain medications. Consulty our local pharmacist with questions or recommendations on stool softeners. If constipation persists, contact our office or your primary care provider. > While under our care,you are not to receive pain medications or other controlled substances from any other provider unless our office is notified and approves. Any attempts to do so will result in refusal to prescribe any further pain medications and possible dismissal from our practice. ? Your wound and/or dressing should remain clean and dry for 2 days after surgery. On postoperative day 2 (48 hours after your surgery) the dressing (if present) should be removed and it is okay to shower and get the incision wet. Pad dry afterwards. No further dressing should be required from that point on. Do not put any creams or ointments on theincision > It is normal for there to be a small amount of discharge (bloody or blood tinged) present from a surgical wound for the first 1-3days. > The wound should be examined twice a day for signs of infection. Mild redness or bruising is to be expected but indications that an infection maybe starting would include; An increase in redness, swelling, or discharge, a foul odor present around the incision, and/or a fever greater than 101 ?F ? Showering is permitted, however we ask that you do not take a bath, sit in a whirlpool / Jacuzzi, or go swimming for 1 month. For only the first 2 days after surgery, lt wilt be necessary for you to cover your wound/dressing with plastic and tape to keep it dry. ? Walking is essential for the healing process after surgery. We would like you to slowly advance your walking. This should be done on relatively flat clear ground (inside or out) or can be done on a treadmill. Remember this goal does not have to happen all at once, slowly increase your distance and duration. This can be broken into more more than one walk per day as tolerated. Patients who walk as directed after surgery rarely require Physical Therapy. In the unlikely event this issue arises your provider will direct hospital staff to make the appropriate arrangements. ? No lifting over 5 pounds {a gallon of milk) or bending/twisting until further notice. Each of these activities places an unnecessary amount of stress onto the body and can impede the delicate healing process. > Instead of bending at the waist, keep your back straight and bend at the knees. > Instead of twisting your torso, keep your back straight and turn your entire body with your feet. ? You may sleep in any position which makes you comfortable. Many patients find comfort sleeping in a reclining chair. It is not abnormal to have difficulty sleeping for the first several weeks following your surgery. We recommend trying Benadry! or Tylenol PM as directed to help with your sleeping difficulties. Both medications are over the counter and available withoutprescription. ? NO SMOKING!!! Smoking dramatically increases the probability of developing postoperative wound infections. ? Common complaints after lumbar and/or thoracic spine surgery include, but are not limited to: numbness and/or tingling in the legs, pain around the incision and surrounding tissues, muscle spasms, or stiffness of the middle to low back. Contact our office if these symptoms persist or if an acute change occurs. ? No driving for the first 3-5days, and not while taking narcotics until seen at your follow-up appointment and cleared. There are no restrictions for riding on short trips, however if you take a longer trip, arrangements should be made to make regular stops to get out of the vehicle and stretch . ? Swelling is an unfortunate event that will take place with any surgery and is the primary source of your postoperative discomfort. While walking and regular approved activities helps control inflammation, there are additional steps you can take to minimizeswelling. > Place ice over the surgical site and surrounding tissue for twenty minutes, followed by applying a low/medium heat (heating pad) for an additional twenty minutes every 1-2 hours as needed for painrelief. > You may use of over the counter anti-inflammatory medications (Ibuprofen, Motrin, Aleve, Advil, etc) as directed on the package label. These types of medicines wm significantly reduce the amount of discomfort you experience after surgery from swelling. It should be noted that if you have and allergy to any of these medications, or a history of ulcers or kidney disease you should consult you primary care provider prior to starting these medications. Discharge Attestations Time Spent in Discharge Care*: less than 30 min Quality Metrics Clinical Quality Measures During this hospital stay, did patient experience: None Coding Level of Care Code Acute [facility] note
[2020-08-11 07:34] VITALS: BP 130/73; PULSE 85; RESP 17; TEMP 36.6; O2SAT 96
[2020-08-11] MEDS: gabapentin 400 mg Capsule 800 MG PO (08:17)
[2020-08-11] MEDS: levETIRAcetam 500 mg Tablet PO (08:17)
[2020-08-11] MEDS: docusate sodium 100 mg Capsule PO (08:17)
[2020-08-11] MEDS: zonisamide 100 MG Capsule PO (08:17)
[2020-08-11] MEDS: BuSPIRONE 10 mg Tablet PO (08:17)
[2020-08-11] MEDS: propranolol 40 mg Tablet PO (08:29)
--- NOTE | 2020-08-11 09:40 | PC.NURSE ---
hemovac Hemovace pulled per Dr Gupta and incision covered with 2x2 and tegaderm. pt tolerated it well.
--- NOTE | 2020-08-11 09:41 | PC.CHAP ---
Pastoral Care Encounter/Spiritual Assessment Type of Contact [] Declined wrapping machine operator visit [] Patient/Family/Request visit [] Outpatient visit [] Follow-up visit [] Physician referral [] Code/Alert [x] Routine visit [] Staff referral [] Actively dying [] Patient sleeping [] Family support [] [] Out of room [] Palliative care [] [] Receiving care in room [] Pre-surgical visit [] Trauma [] Long length of stay [] ICU visit [] Other: Relational/Emotional Strength x[] Patient feels connected with others/family/visitors/staff [] Distress [] Loneliness/isolation [] Abandonment Spirituality of Patient [x] Person of Hetal [x] Attends Orthodoxy of their Hetal [] Believes in Prayer [] Reads Bible or Islam materials [] There are Spiritual issues to be addressed Price Changer Interventions [x] Prayer [x] Active listening [x] Non-anxious presence [] Spiritual/emotional support [] Crisis/trauma care [] Spiritual counseling [] Bereavement support [] Provided bereavement packet [] Provided Bible/devotional materials [] Provided toy/stuffed animal, coloring book to patient or family member [] Provided Communion [] Anointing/Mcdonald [] Salvation [x] Completed spiritual assessment [] Other: Impact on Illness or Injury [] Angry [] Fearful [] Anxious [] Often cries [] Exhaustion [] Unable to work [] Unable to attend christian [] Unable to walk/stand [] Unable to read [] Unable to drive [] Unable to eat/drink [] Unable to sleep [] Unable to be with family [] Patient intubated [] Other: Summary patient was with family ready to go home Time spent with patient 10 mimn
[2020-08-11 09:52] VITALS: BP 130/73; PULSE 85; RESP 17; TEMP 36.6; O2SAT 96
== END 2020-08-11 09:00 | disposition home or self-care (01) ==
LOC: MEDSURG 12:24
PROVIDERS: Admitting Provider Orthopaedic Surgery; PCP Family Medicine; Visit Provider Orthopaedic Surgery
PROC: (CPT 22612; principal; 2020-08-10 07:00)
DX: M48.061 Spinal stenosis, lumbar region without neurogenic claudication (principal); I10 Essential (primary) hypertension; K21.9 Gastro-esophageal reflux disease without esophagitis; Z87.891 Personal history of nicotine dependence
CPT/HCPCS: 20930; 20936; 20939; 22633; 22634; 22842; 22853 ×2; 63042; 63044; 36415; 51702; 72020; 72100; 76000; 80048; 85025; 94640; 96372; 97116; 97161; C1713; C9359; G0378; J0690; J1100; J1644; J1650; J1885; J2270; J2405; J2704; J3010; J3490; J3535; J7030

== ENCOUNTER → 2020-09-24 14:50 | Outpatient (BNVA) | payer MEDICAID, SELFPAY | PROVIDERS: PCP Family Medicine; Visit Provider Orthopaedic Surgery | DX: Z48.89 Encounter for other specified surgical aftercare (principal); Z98.1 Arthrodesis status | CPT/HCPCS: 72100 ==

== ENCOUNTER → 2020-10-20 00:01 | Outpatient (BNVA) | payer MEDICAID, SELFPAY | PROVIDERS: PCP Family Medicine; Visit Provider Family Medicine | DX: G43.109 Migraine with aura, not intractable, without status migrainosus (principal); I10 Essential (primary) hypertension; R53.83 Other fatigue | CPT/HCPCS: 80053; 80061; 82306; 82607; 84443 ==

== ENCOUNTER 2020-11-10 11:41 | Emergency (ER) | payer MEDICAID, SELFPAY ==
[2020-11-10 11:47] VITALS: PULSE 84; RESP 16; TEMP 36.7; O2SAT 99; BMI 35.4
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
[2020-11-10 11:52] VITALS: BP 134/79; PULSE 83; RESP 16; TEMP 36.5; O2SAT 99
--- NOTE | 2020-11-10 11:59 | XRR_ITS ---
PROCEDURE INFORMATION: Exam: XR Lumbosacral Spine Exam date and time: 11/10/2020 11:59 AM Age: 35 years old Clinical indication: Low back pain; Prior surgery; Surgery type: --in July had back surg, hurt lower back getting into car recently TECHNIQUE: Imaging protocol: XR of the lumbosacral spine. Views: 2 or 3 views. Total images: 3 COMPARISON: CR XR lumbar spine 2-3V* [id number] 09/24/2020 2:56 PM FINDINGS: Bones/joints: L4-S1 Posterior spinal fusion and laminectomy noted. Rods, disc spacers, and pedicle screws are in place and there is no evidence of hardware failure. Soft tissues: Unremarkable. Intraperitoneal space: Surgical clips are present in the right upper quadrant which are suggestive of prior cholecystectomy. XR/XR lumbar spine 2-3V* [id number] IMPRESSION: Postsurgical changes as described above but no acute pathology detected.
[2020-11-10] MEDS: ketorolac 30 mg/mL INJ IM (12:38)
[2020-11-10] MEDS: orphenadrine 30 mg/mL Inj 2 mL 60 MG IM (12:39)
[2020-11-10 13:46] VITALS: BP 104/58; PULSE 77; RESP 18; O2SAT 99
== END 2020-11-10 13:47 | disposition home or self-care (01) ==
PROVIDERS: Emergency Provider Nurse Practitioner Family; PCP Family Medicine
DX: S39.012A Strain of muscle, fascia and tendon of lower back, initial encounter (principal); I10 Essential (primary) hypertension; F17.210 Nicotine dependence, cigarettes, uncomplicated; X50.9XXA Other and unspecified overexertion or strenuous movements or postures, initial encounter
CPT/HCPCS: 72100; 96372; 99283; J1885; J2360

== ENCOUNTER → 2020-11-19 14:46 | Outpatient (BNVA) | payer MEDICAID, SELFPAY | PROVIDERS: PCP Family Medicine; Visit Provider Orthopaedic Surgery | DX: Z48.89 Encounter for other specified surgical aftercare (principal) | CPT/HCPCS: 72100 ==

== ENCOUNTER → 2020-12-08 17:23 | Outpatient (BNVA) | payer MEDICAID, SELFPAY | PROVIDERS: PCP Family Medicine; Visit Provider Family Medicine | DX: R35.0 Frequency of micturition (principal); G43.109 Migraine with aura, not intractable, without status migrainosus; H66.92 Otitis media, unspecified, left ear | CPT/HCPCS: 81000; 81003 ==

== ENCOUNTER → 2020-12-25 08:11 | Outpatient (BNVA) | payer MEDICAID, SELFPAY | PROVIDERS: PCP Family Medicine; Referring Provider Orthopaedic Surgery; Visit Provider Anesthesiology Pain Medicine | DX: G89.29 Other chronic pain (principal); M48.062 Spinal stenosis, lumbar region with neurogenic claudication; M43.26 Fusion of spine, lumbar region; M51.16 Intervertebral disc disorders with radiculopathy, lumbar region; M47.816 Spondylosis without myelopathy or radiculopathy, lumbar region; M79.604 Pain in right leg; M79.605 Pain in left leg; Z98.890 Other specified postprocedural states; Z79.891 Long term (current) use of opiate analgesic | CPT/HCPCS: 99204 ==

== ENCOUNTER 2021-01-01 15:58 | Emergency (ER) | payer MEDICAID, SELFPAY ==
[2021-01-01 16:54] VITALS: BP 137/112; PULSE 79; RESP 16; TEMP 36.5; O2SAT 98
--- NOTE | 2021-01-01 18:39 | CTR_ITS ---
PROCEDURE INFORMATION: Exam: CT Head Without Contrast Exam date and time: 01/01/2021 6:39 PM Age: 35 years old Clinical indication: Condition or disease; Convulsions or seizures; Unspecified; Patient HX: Seizure approx 10am TECHNIQUE: Imaging protocol: Computed tomography of the head without contrast. Radiation optimization: All CT scans at this facility use at least one of these dose optimization techniques: automated exposure control; mA and/or kV adjustment per patient size (includes targeted exams where dose is matched to clinical indication); or iterative reconstruction. COMPARISON: No relevant prior studies available. RADIATION DOSE METRICS: Total DLP (mGy-cm): 961.07 FINDINGS: Brain: Normal. No hemorrhage. Unremarkable white matter. No mass effect. Cerebral ventricles: No ventriculomegaly. Paranasal sinuses: Visualized sinuses are unremarkable. No fluid levels. Mastoid air cells: Visualized mastoid air cells are well aerated. Bones/joints: Unremarkable. No acute fracture. Soft tissues: Unremarkable. CT/CT head wo con* [id number] IMPRESSION: No acute intracranial abnormality. Radiation Dose CTDIVOL = (mGy): DLP = 961.07 (mGy-cm)
--- NOTE | 2021-01-01 18:39 | CTR_ITS ---
PROCEDURE INFORMATION: Exam: CT Lumbar Spine Without Contrast Exam date and time: 01/01/2021 6:39 PM Age: 35 years old Clinical indication: Injury or trauma; Blunt trauma (contusions or hematomas); Prior surgery; Surgery date: 6+ months; Surgery type: L-sp; Patient HX: Seizure and fall C/O lbp w lle defecits; Additional info: Fall, HX of lumbar surgery TECHNIQUE: Imaging protocol: Computed tomography images of the lumbar spine without contrast. Radiation optimization: All CT scans at this facility use at least one of these dose optimization techniques: automated exposure control; mA and/or kV adjustment per patient size (includes targeted exams where dose is matched to clinical indication); or iterative reconstruction. COMPARISON: MR lumbar spine wo con* [id number] 07/13/2020 1:09 PM RADIATION DOSE METRICS: Total DLP (mGy-cm): 1944.41 FINDINGS: Vertebrae: No acute lumbar spine fracture. Preservation of vertebral body height. Unremarkable lumbar spine alignment. L4 through S1 posterior fusion without complication apparent. Intervertebral disc spacer device at L4-L5. Intervertebral disc spacer device at L5-S1. L4 level laminectomy. L5 level laminectomy. Partial resection of the facets on the left at L5-S1. Soft tissues: Postsurgical scarring or edema in the midline of the posterior lumbar paraspinal soft tissues. CT/CT lumbar spine wo con* [id number] IMPRESSION: Negative for acute lumbar spine abnormality. Radiation Dose CTDIVOL = (mGy): DLP = 1944.41 (mGy-cm)
--- NOTE | 2021-01-01 18:39 | CTR_ITS ---
PROCEDURE INFORMATION: Exam: CT Cervical Spine Without Contrast Exam date and time: 01/01/2021 6:39 PM Age: 35 years old Clinical indication: Injury or trauma; Blunt trauma; Patient HX: Seizure and fall approx 10am TECHNIQUE: Imaging protocol: Computed tomography images of the cervical spine without contrast. Radiation optimization: All CT scans at this facility use at least one of these dose optimization techniques: automated exposure control; mA and/or kV adjustment per patient size (includes targeted exams where dose is matched to clinical indication); or iterative reconstruction. COMPARISON: CT head wo con* [id number] 01/01/2021 6:55 PM RADIATION DOSE METRICS: Total DLP (mGy-cm): 704.19 FINDINGS: Vertebrae: No acute fracture. Normal alignment. C2-C3: No significant disc protrusion. No severe spinal canal stenosis. No significant neural foraminal narrowing. C3-C4: No significant disc protrusion. No severe spinal canal stenosis. No significant neural foraminal narrowing. C4-C5: No significant disc protrusion. No severe spinal canal stenosis. No significant neural foraminal narrowing. C5-C6: No significant disc protrusion. No severe spinal canal stenosis. No significant neural foraminal narrowing. C6-C7: No significant disc protrusion. No severe spinal canal stenosis. No significant neural foraminal narrowing. C7-T1: No significant disc protrusion. No severe spinal canal stenosis. No significant neural foraminal narrowing. Soft tissues: Unremarkable. Lungs: Lung apices are normal. CT/CT cervical spin wo con* [id number] IMPRESSION: No acute findings. Radiation Dose CTDIVOL = (mGy): DLP = 704.19 (mGy-cm)
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
[2021-01-01] MEDS: ondansetron 2 mg/ML SDV 2 mL 4 MG IVP (19:18)
[2021-01-01] MEDS: HYDROmorphone 1 mg/mL INJ 1 mL IVP ×2 (19:19→21:21)
[2021-01-01 19:23] VITALS: BP 128/91; PULSE 89; RESP 16; O2SAT 97
[2021-01-01 19:36] LABS: Add Urine Microscopic? YES; Bilirubin Urine 1+ (Negative); Blood Urine Neg (Negative); Glucose Urine UA Norm (Normal); Ketones Urine Negative (Negative); Leukocyte Esterase Urine Negative (Negative); Nitrate Urine Negative (Negative); Protein Urine Neg (Negative); Specific Gravity, Urine 1.025 (1.005-1.030); Urine Appearance Cloudy (CLEAR); Urine Color Yellow (Yellow); Urobilinogen Urine 1 mg/dL (Negative); pH Urine 5 (5-7)
[2021-01-01 19:43] LABS: Add Urine Culture? No; Bacteria Urine 3+ /hpf; RBC Urine 0-4 /hpf (0-2); Squamous Epithelial Cell Urine 55-80 /hpf (0-5); WBC Urine 0-4 /hpf (0-5)
[2021-01-01 20:25] LABS: Basophils % 0.3 %; Eosinophils # 0.3 10^3/uL (0.0-0.8); Eosinophils % 3.2 %; Hematocrit 42.2 % (37.0-47.0); Hemoglobin 12.9 g/dL (11.5-15.3); Lymphocytes # 3.4 10^3/uL (0.8-4.8); Lymphocytes % 32.5 %; Mean Corpuscular HGB Conc 30.6 g/dL (30.0-36.0); Mean Corpuscular Hemoglobin 28.2 pg (28.0-34.0); Mean Corpuscular Volume 92.1 fl (81-99); Mean Platelet Volume 8.5 fL (7.4-10.4); Monocytes # 0.8 10^3/uL (0.2-0.9); Monocytes % 7.4 %; Neutrophils # 5.91 10^3/uL (1.8-7.7); Neutrophils % 56.3 %; Nucleated Red Blood Cells % 0 %; Platelet Count 453 10^3/cmm (130-400); Red Blood Count 4.58 10^6/uL (4.1-5.3); Red Cell Distribution Width 17.5 % (12.1-15.1); White Blood Count 10.5 10^3/uL (4.0-10.0)
[2021-01-01 20:41] LABS: Alanine Aminotransferase 10 U/L (0-33); Albumin Level 3.8 g/dL (3.5-5.2); Alkaline Phosphatase 103 IU/L (35-105); Anion Gap 14.3 (5-19); Aspartate Amino Transferase 13 U/L (0-32); Blood Urea Nitrogen 12 mg/dL (6-20); C Reactive Protein 10.4 mg/L (0.0-4.9); Calcium 9.1 mg/dL (8.5-10.5); Carbon Dioxide 19 mmol/L (22-29); Chloride 107 mmol/L (98-107); Creatine Phosphokinase 76 U/L (26-192); Globulin 3.1 g/dL (1.3-4.6); Glomerular Filtration Rate 94.7 mL/min (90-130); Glucose 83 mg/dL (65-115); Magnesium 1.9 mg/dL (1.7-2.3); Osmolality Calculated 281 mOsm/kg (285-295); Phosphorus 3.1 mg/dL (2.5-4.5); Potassium 4.3 mmol/L (3.5-5.1); Sodium 136 mmol/L (136-145); Total Bilirubin 0.2 mg/dL (0.15-1.2); Total Protein 6.9 g/dL (6.6-8.7)
[2021-01-01 21:16] VITALS: BP 126/89; PULSE 69; RESP 16; O2SAT 96
[2021-01-01 21:21] VITALS: BP 126/89; PULSE 69; RESP 16; TEMP 36.5; O2SAT 96
[2021-01-01 23:42] LABS: HCG Qualitative Urine. Negative (Negative)
== END 2021-01-01 21:22 | disposition home or self-care (01) ==
PROVIDERS: Emergency Provider Emergency Medicine; PCP Family Medicine
DX: S16.1XXA Strain of muscle, fascia and tendon at neck level, initial encounter (principal); M54.16 Radiculopathy, lumbar region; I10 Essential (primary) hypertension; Z87.891 Personal history of nicotine dependence; W19.XXXA Unspecified fall, initial encounter
CPT/HCPCS: 36415; 70450; 72125; 72131; 80053; 81001; 81025; 82550; 83735; 84100; 85025; 86140; 96374; 96375; 99283; J1170; J2405

== ENCOUNTER → 2021-01-04 13:17 | Outpatient (BNVA) | payer MEDICAID, SELFPAY | PROVIDERS: PCP Family Medicine; Visit Provider Anesthesiology Pain Medicine | DX: M54.16 Radiculopathy, lumbar region (principal); M48.062 Spinal stenosis, lumbar region with neurogenic claudication; F17.210 Nicotine dependence, cigarettes, uncomplicated; Z79.891 Long term (current) use of opiate analgesic | CPT/HCPCS: 64483; 64484; J1100; J3490 ==

== ENCOUNTER → 2021-01-20 12:27 | Outpatient (BNVA) | payer MEDICAID, SELFPAY | PROVIDERS: PCP Family Medicine; Visit Provider Anesthesiology Pain Medicine | DX: M54.16 Radiculopathy, lumbar region (principal); M48.062 Spinal stenosis, lumbar region with neurogenic claudication; Z87.891 Personal history of nicotine dependence | CPT/HCPCS: 64483; 64484; J1100; J3490 ==

== ENCOUNTER → 2021-01-28 15:48 | Outpatient (BNVA) | payer MEDICAID, SELFPAY | PROVIDERS: PCP Family Medicine; Visit Provider Orthopaedic Surgery | DX: Z47.89 Encounter for other orthopedic aftercare (principal); Z98.1 Arthrodesis status; M48.062 Spinal stenosis, lumbar region with neurogenic claudication | CPT/HCPCS: 72100 ==

== ENCOUNTER → 2021-02-04 09:04 | Outpatient (BNVA) | payer MEDICAID, SELFPAY | PROVIDERS: PCP Family Medicine; Visit Provider Anesthesiology Pain Medicine | DX: M48.062 Spinal stenosis, lumbar region with neurogenic claudication (principal); M43.26 Fusion of spine, lumbar region; M51.16 Intervertebral disc disorders with radiculopathy, lumbar region; M47.816 Spondylosis without myelopathy or radiculopathy, lumbar region; M79.604 Pain in right leg; M79.605 Pain in left leg; Z98.890 Other specified postprocedural states; F17.200 Nicotine dependence, unspecified, uncomplicated | CPT/HCPCS: 99214 ==

== ENCOUNTER → 2021-02-08 12:37 | Outpatient (BNVA) | payer MEDICAID, SELFPAY | PROVIDERS: PCP Family Medicine; Visit Provider Anesthesiology Pain Medicine | DX: M48.062 Spinal stenosis, lumbar region with neurogenic claudication (principal); M47.816 Spondylosis without myelopathy or radiculopathy, lumbar region; M54.16 Radiculopathy, lumbar region; Z87.891 Personal history of nicotine dependence | CPT/HCPCS: 64493; 64494; J3490 ==

== ENCOUNTER 2021-02-23 07:03 | Outpatient (CLI) | payer MEDICAID, SELFPAY ==
--- NOTE | 2021-02-23 07:15 | MR_ITS ---
WS: [id number] MRI LUMBAR SPINE NONCONTRAST TECHNIQUE: Sagittal T1, T2 and STIR imaging. Axial T1 and T2 imaging. CLINICAL INFORMATION: M51.16 - Intervertebral disc disorders with radiculopathy... COMPARISON: MRI July 13, 2020 FINDINGS: Mild lumbar curve. No acute compression. No high-grade central canal stenosis. Pedicle screw fixation L4-S1 with interbody fusion grafts. This is new from previous. Laminectomy defects L4-5 with left L4 -5 and L5-S1 foraminotomies. L1-L2: Normal. L2-L3: Normal. L3-L4: Mild annular bulging with slight effacement of ventral thecal sac. Mild facet arthropathy. Spi nal canal and foramen are patent. L4-L5: Interval postoperative changes with pedicle screw fixation and interbody fusion graft. Laminec davin defects with left foraminotomy. No recurrent stenosis. L5-S1: Postoperative changes pedicle screw fixation. Interbody fusion grafts. Left foraminotomy with laminectomy defects. No recurrent stenosis. Visualized pelvic bony structures: Normal. Paravertebral soft tissues: Normal. MR/MR lumbar spine wo con* [id number] IMPRESSION: 1. Interval postoperative changes L4-L5 and L5-S1 with interbody fusion grafts and pedicle screw fixation with foraminotomies. No evidence of recurrent steno sis at these levels. 2. Mild annular bulging L3-4 with slight effacement of ventral thecal sac. Spi nal canal and foramen are patent. 3. No other significant interval changes.
== END 2021-02-23 07:04 | disposition home or self-care (01) ==
LOC: RADSHAW 07:06
PROVIDERS: PCP Family Medicine; Visit Provider Orthopaedic Surgery
DX: M51.16 Intervertebral disc disorders with radiculopathy, lumbar region (principal); M51.26 Other intervertebral disc displacement, lumbar region
CPT/HCPCS: 72148

== ENCOUNTER 2021-02-25 20:00 | Outpatient (CLI) | payer MEDICAID, SELFPAY | END 2021-02-25 20:01 | disposition home or self-care (01) | LOC: SLEEP 02-26 06:53 | PROVIDERS: PCP Family Medicine; Visit Provider Nurse Practitioner Family | DX: G47.33 Obstructive sleep apnea (adult) (pediatric) (principal); R06.01 Orthopnea; R06.00 Dyspnea, unspecified; M48.062 Spinal stenosis, lumbar region with neurogenic claudication; M43.26 Fusion of spine, lumbar region; M51.16 Intervertebral disc disorders with radiculopathy, lumbar region; M47.816 Spondylosis without myelopathy or radiculopathy, lumbar region; R20.0 Anesthesia of skin; M79.604 Pain in right leg; M79.605 Pain in left leg; Z98.890 Other specified postprocedural states; Z87.891 Personal history of nicotine dependence; F41.9 Anxiety disorder, unspecified | CPT/HCPCS: 95810; 99214 ==

== ENCOUNTER → 2021-03-03 13:35 | Outpatient (BNVA) | payer MEDICAID, SELFPAY | PROVIDERS: PCP Family Medicine; Visit Provider Anesthesiology Pain Medicine | DX: M47.816 Spondylosis without myelopathy or radiculopathy, lumbar region (principal); M48.062 Spinal stenosis, lumbar region with neurogenic claudication | CPT/HCPCS: 64635; 64636; J1030 ==

== ENCOUNTER → 2021-03-10 09:06 | Outpatient (BNVA) | payer MEDICAID, SELFPAY | PROVIDERS: PCP Family Medicine; Referring Provider Orthopaedic Surgery; Visit Provider Specialist | DX: G62.89 Other specified polyneuropathies (principal); M48.062 Spinal stenosis, lumbar region with neurogenic claudication; Z87.891 Personal history of nicotine dependence | CPT/HCPCS: 95909 ==

== ENCOUNTER → 2021-03-15 08:52 | Outpatient (BNVA) | payer MEDICAID, SELFPAY | PROVIDERS: PCP Family Medicine; Visit Provider Anesthesiology Pain Medicine | DX: M48.062 Spinal stenosis, lumbar region with neurogenic claudication (principal); M43.26 Fusion of spine, lumbar region; M47.816 Spondylosis without myelopathy or radiculopathy, lumbar region; M51.16 Intervertebral disc disorders with radiculopathy, lumbar region; M79.604 Pain in right leg; M79.605 Pain in left leg; Z98.890 Other specified postprocedural states; Z79.891 Long term (current) use of opiate analgesic | CPT/HCPCS: 99214 ==

== ENCOUNTER 2021-03-17 08:09 | Outpatient (CLI) | payer MEDICAID, SELFPAY ==
[2021-03-17 09:57] VITALS: BMI 39.4
--- NOTE | 2021-03-17 09:59 | ECG_ITS ---
[facility] Test Date: 2021-03-17 Pat Name: Mary Bernal Department: Room: Gender: Female Residential Tech: Estrella Fayn : 1985 Requested By: Bubba Oliva Order Number: [id number] Jordan MD: Bubba Oliva M.D. Interpretive Statements NAME OF STUDY: LEXISCAN SESTAMIBI STRESS TEST INDICATION: [Chest Pain sob, ] Procedure: At the baseline, the blood pressure was 112/81 mmHg with a heart rate of 66 bpm. The electrocardiogram showed normal sinus rhythm, normal axis with normal ST and T's. The Lexiscan was infused over a period of 20 seconds. A total of 0.4 mg of Lexiscan was infused. The stress phase was continued for a total of 5 minutes. Heart rate was at the end of stress phase was 90 bpm and a blood pressure of 119/70 mmHg. The EKG at the peak infusion revealed since normal sinus rhythm with no significant ST-T wave changes. Sestamibi was injected 20 seconds after the Lexiscan infusion. Blood pressure at the end of recovery phase was 108/64 mmHg with a heart rate of 89 bpm. Conclusion: 1. Normal EKG response to Lexiscan infusion 2. No Lexiscan induced chest pain or cardiac arrhythmia. 3. Normal blood pressure and heart rate response. 4. Sestamibi/sestamibi perfusion scan pending; see separate report. Electronically Signed On 03-20-2021 12:56:22 HOSE INSPECTOR AND PATCHER by Bubba Oliva M.D. [id number]
--- NOTE | 2021-03-17 10:00 | NMCV_ITS ---
NM deedee perf SPECT r/s* [id number] Bernal Mary Age: 35 Gender: F : 1985 Exam Date: 03/17/2021 09:54 Ordering Phys: Bubba Oliva M.D ([email or web address]) Technologist: BASIL Breen Exam Location: [facility] Indications: CHEST PAIN STRESS TEST Please see separate stress test report in [facility] for full findings IMAGE PROTOCOL Rest/Stress 1 Lexiscan Day Radiopharmaceutical Dose (mCi) Administration Site Administered by Rest: Tc-99m 10.7 IV BASIL Devlin Sestamibi Stress:Tc-99m 32.3 IV BASIL Devlin Sestamibi Rest: 17-Mar-2021 60 Discovery 630 Stress: 17-Mar-2021 Discovery 630 0.4mg Lexiscan. Images obtained in supine and prone position. SPECT RESULTS Technical Quality: Excellent Raw Data Analysis: Normal Image Corrections: No attenuation or motion correction applied Summed Stress Score: 3 Summed Rest Score: 1 Summed Difference Score: 2 PERFUSION FINDINGS There is a small in size, partially reversible perfusion defect in the apical lateral and anterolateral madrid.This likely represents prior small infarct with grant-infarct ischemia in the left circumflex artery territory. FUNCTIONAL RESULTS (calculated via Gated SPECT) Stress Image LV EF (%): 72 Stress EDV (mL):78 TID: 1.07 Stress ESV (mL):22 FUNCTIONAL FINDINGS: There is normal left ventricular systolic function. IMPRESSIONS 1. Abnormal myocardial perfusion imaging demonstrating small sized prior infarct with grant-infarct ischemia in the left circumflex artery territory 2. LV systolic function is normal Bubba Oliva MD (Electronically Signed) Final Date: 21 March 2021 17:53 S
[2021-03-17 10:52] VITALS: BP 108/64; PULSE 90
[2021-03-17] MEDS: regadenoson 0.4 Mg/5 ml Syringe IVP (10:52)
== END 2021-03-17 08:10 | disposition home or self-care (01) ==
LOC: RAD 08:12 → CDL 09:50
PROVIDERS: PCP Family Medicine; Visit Provider Internal Medicine
DX: R07.9 Chest pain, unspecified (principal); R06.02 Shortness of breath
CPT/HCPCS: 78452; 93017; A9500; J2785

== ENCOUNTER → 2021-03-30 14:04 | Outpatient (BNVA) | payer MEDICAID, SELFPAY | PROVIDERS: PCP Family Medicine; Visit Provider Specialist | DX: G40.909 Epilepsy, unspecified, not intractable, without status epilepticus (principal); G43.711 Chronic migraine without aura, intractable, with status migrainosus; F43.22 Adjustment disorder with anxiety; F43.10 Post-traumatic stress disorder, unspecified; G25.81 Restless legs syndrome | CPT/HCPCS: 99204; 99205 ==

== ENCOUNTER → 2021-04-06 08:16 | Outpatient (BNVA) | payer MEDICAID, SELFPAY | PROVIDERS: PCP Family Medicine; Referring Provider Orthopaedic Surgery; Visit Provider Specialist | DX: M54.41 Lumbago with sciatica, right side (principal); M54.42 Lumbago with sciatica, left side; G43.711 Chronic migraine without aura, intractable, with status migrainosus; G40.909 Epilepsy, unspecified, not intractable, without status epilepticus | CPT/HCPCS: 95861; 99214 ==

== ENCOUNTER → 2021-05-12 09:56 | Outpatient (BNVA) | payer MEDICAID, SELFPAY | PROVIDERS: PCP Family Medicine; Visit Provider Specialist | DX: G40.909 Epilepsy, unspecified, not intractable, without status epilepticus (principal); F17.210 Nicotine dependence, cigarettes, uncomplicated; F17.290 Nicotine dependence, other tobacco product, uncomplicated | CPT/HCPCS: 95816 ==

== ENCOUNTER → 2021-05-18 14:15 | Outpatient (BNVA) | payer MEDICAID, SELFPAY | PROVIDERS: PCP Family Medicine; Visit Provider Specialist | DX: G40.909 Epilepsy, unspecified, not intractable, without status epilepticus (principal); G43.711 Chronic migraine without aura, intractable, with status migrainosus; R06.02 Shortness of breath; R07.9 Chest pain, unspecified | CPT/HCPCS: 99213; 99214 ==

== ENCOUNTER 2021-05-19 09:26 | Outpatient (CLI) | payer MEDICAID, SELFPAY ==
--- NOTE | 2021-05-19 10:15 | USCV_ITS ---
Mary Bernal Age: 35 Gender: F : 1985 Exam Date: 05/19/2021 09:54 Ordering Phys: Bubba Oliva M.D ([email or web address]) Technologist: Marisabel Rendon Exam Location: [facility] [place] Indication: CHEST PAIN BP: / HR: 67 Rhythm: Sinus Technical Quality: Adequate MEASUREMENTS (Male / Female) Normal Values 2D ECHO LV Diastolic Diameter PLAX 3.6 cm 4.2 - 5.9 / 3.9 - 5.3 cm LV Systolic Diameter PLAX 1.9 cm LV Chamber Size 3.4 cm IVS Diastolic Thickness 1.3 cm 0.6 - 1.0 / 0.6 - 0.9 cm IVS Systolic Thickness 1.6 cm LVPW Diastolic Thickness 1.3 cm 0.6 - 1.0 / 0.6 - 0.9 cm LVPW Systolic Thickness 1.7 cm RV Chamber Size 3.4 cm LVOT Diameter 2.0 cm LV Ejection Fraction 2D Teich 80.4 % LV Ejection Fraction MOD 2C 75.6 % LV Ejection Fraction 2C AL 75.8 % LA Diameter 3.2 cm LA Width 1.9 cm LA Height 3.5 cm RA Width 3.5 cm RA Height 4.0 cm Aorta at Sinotubular Diameter 2.6 cm M-MODE Aortic Annulus Diameter 2.9 cm LA Ao Ratio MM 1.4 MV E Point Septal Separation 0.3 cm DOPPLER AV Peak Velocity 149.0 cm/s LVOT Peak Velocity 95.0 cm/s AV Area Cont Eq vti 2.2 cm squared AV Area Cont Eq pk 2.0 cm squared MV Area PHT 3.1 cm squared Mitral E to A Ratio 1.0 MV E' Velocity 55.0 cm/s Mitral E to MV E' Ratio 7.9 Mitral E to LV E' Lateral Ratio 8.0 Mitral E to LV E' Septal Ratio 7.8 TR Peak Velocity 196.1 cm/s TR Peak Gradient 15.4 mmHg TR Mean Velocity 134.3 cm/s TR Mean Gradient 8.3 mmHg TR Velocity Time Integral 44.5 cm TV Peak E Velocity 80.0 cm/s Right Atrial Pressure 3.0 mmHg Pulmonary Artery Systolic Pressu 18.4 mmHg PV Peak Velocity 49.0 cm/s RV Acceleration Time 0.1 s RV Ejection Time 0.4 s RV AcT/ET 0.2 FINDINGS Left Ventricle Normal left ventricular size. LV systolic function is normal with EF of 55-60%. No regional wall motion abnormalities. Normal diastolic filling pattern. Right Ventricle The right ventricle is normal in size and function. Right Atrium The right atrium is normal in size. Left Atrium The left atrium is normal in size. Mitral Valve Structurally normal mitral valve without significant stenosis or prolapse. There is no mitral regurgitation. Aortic Valve Structurally normal aortic valve without significant sclerosis or stenosis. There is no aortic regurgitation. Tricuspid Valve Structurally normal tricuspid valve without significant stenosis or regurgitation. Insufficient TR jet to calculate RVPS Pulmonic Valve Structurally normal pulmonic valve without significant stenosis. There is no pulmonic regurgitation. Pericardium Normal pericardium without effusion. Aorta Normal ascending aorta dimension. CONCLUSIONS LV systolic fucntion is normal with EF of 55-60% Normal diastolic function No significant valvular heart disease No comparison studies are available Bubba Oliva MD (Electronically Signed) Final Date: 29 May 2021 11:21 S
== END 2021-05-19 09:27 | disposition home or self-care (01) ==
LOC: RAD 09:32
PROVIDERS: PCP Family Medicine; Visit Provider Internal Medicine
DX: R07.9 Chest pain, unspecified (principal); R06.02 Shortness of breath
CPT/HCPCS: 93306

== ENCOUNTER → 2021-05-21 10:09 | Outpatient (BNVA) | payer MEDICAID, SELFPAY | PROVIDERS: PCP Family Medicine; Visit Provider Internal Medicine | DX: Z01.812 Encounter for preprocedural laboratory examination (principal) | CPT/HCPCS: 87635 ==

== ENCOUNTER 2021-05-25 07:36 | Outpatient (CLI) | payer MEDICAID, SELFPAY ==
[2021-05-21 09:55] LABS: Basophils % 0.3 %; Eosinophils # 0.6 10^3/uL (0.0-0.8); Eosinophils % 5.4 %; Hematocrit 40.5 % (37.0-47.0); Hemoglobin 13.7 g/dL (11.5-15.3); Lymphocytes # 2.3 10^3/uL (0.8-4.8); Lymphocytes % 20.5 %; Mean Corpuscular HGB Conc 33.8 g/dL (30.0-36.0); Mean Corpuscular Hemoglobin 32.5 pg (28.0-34.0); Mean Platelet Volume 8.2 fL (7.4-10.4); Monocytes # 0.7 10^3/uL (0.2-0.9); Monocytes % 6.2 %; Neutrophils # 7.55 10^3/uL (1.8-7.7); Neutrophils % 67.3 %; Nucleated Red Blood Cells % 0 %; Platelet Count 485 10^3/cmm (130-400); Red Blood Count 4.22 10^6/uL (4.1-5.3); Red Cell Distribution Width 13.2 % (12.1-15.1); White Blood Count 11.2 10^3/uL (4.0-10.0)
[2021-05-21 10:04] LABS: INR 0.96 (0.83-1.21); Prothrombin Time (Patient) 13.1 Seconds (12.0-15.1)
[2021-05-21 10:26] LABS: Anion Gap 16.2 (5-19); Blood Urea Nitrogen 14 mg/dL (6-20); Calcium 9.8 mg/dL (8.5-10.5); Carbon Dioxide 25 mmol/L (22-29); Chloride 102 mmol/L (98-107); Glomerular Filtration Rate 81.2 mL/min (90-130); Glucose 111 mg/dL (65-115); Osmolality Calculated 289 mOsm/kg (285-295); Potassium 4.2 mmol/L (3.5-5.1); Sodium 139 mmol/L (136-145)
[2021-05-25] VITALS (16 sets, daily range): BP systolic 107–135; BP diastolic 71–106; PULSE 72–82; RESP 13–22; TEMP 36.4; O2SAT 91–98; BMI 39.8
--- NOTE | 2021-05-25 07:30 | XACV_ITS ---
Wt: 102 kg BSA: 2.18 m2 Gender: Female : 1985 Accession #: $[id number]$ Any Known Allergies: Latex Exam Priority: Routine Procedure(s): Procedure Description: Diagnostic procedure Procedure Description: Coronary Angiography Diagnostic Cath Status: Elective Diagnostic Findings * INDICATION: Abnormal stress test/chest pain. * No disease noted in the Left Main, Left Anterior Descending, Right, or Circumflex coronary arteries. * Coronary angiography shows co-dominance. Conclusions 1. No disease noted in the Left Main, Left Anterior Descending, Right, or Circumflex coronary arteries. Recommendations * Aggressive risk factor modification. * Possible coronary spasms as patient as radial artery spasm as well. We will put on amlodipine as outpatient of blood pressure is normal. * Outpatient cardiology follow up in 4 weeks. Interventional RX Recommendation: medical therapy and/or counseling Diagnostic RX Recommendation: medical therapy and/or counseling Anticoagulation: Heparin Clinical Evaluation EBL: 5mL-10mL Procedural Details Procedure Consent Obtained. Pre-Procedure Time Out. Identified patient by full name and date of as verbalized by the patient/guarantor. Does the consent match the physician's order: Yes. Accurate & Complete Informed Consent: Yes. Inpatient/Outpatient History & Physical on Chart: Yes. If H&P is completed, is and addenduem needed: No; If yes, is the addendum complete: No. Visualize and Verify Site with Patient/Guarantor: N/A. Relevant Radiology Images available: N/A. The risks, benefits, and alternatives of sedation and/or procedure were discussed by physician. The patient agrees to continue. Procedure started. [facility] Clinical Fraility Score: 4: Vulnerable. Molder Floor Indications: Worsening Angina, Abnormal stress test. Chest Pain Symptom Assessment: Atypical Angina. Correct patient, site and procedure confirmed by cath team. Current diagnosis: Chest Pain. PERRLA. Strong, equal hand big machine consultant bilaterally. Lungs clear x 5 lobes. IV Site on Arrival: 20 gauge in the left anticubital. IV Fluids: 0.9% NaCl at KVO. 0 mL infused prior to parking lot laborer. Pre Procedural Pulses: right radial was 1+. Pre Procedural Pulses: left radial was 3+. Pre Procedural Pulses: right dorsalis pedis was 3+. Pre Procedural Pulses: left dorsalis pedis was 2+. Pre Procedural Pulses: right posterior tibial was 1+. Pre Procedural Pulses: left posterior tibial was 2+. Oxygen started at 2liters/min via nasal canula. right radial was prepped with chloroprep then draped in the usual sterile fashion. Physician notified. Baseline sample Acquired. HR: 71 BPM. Admit Source: Out Patient. Physician arrived. Physician scrubbed in. Immediate Pre-Procedure Time Out. Correct Patient: Yes; Correct Procedure: Yes; Correct Site: Yes; Correct Patient Position: Yes; Correct Supplies: Yes; Dried Flammable Prep: Yes; Blood Products Available: No;. Lidocaine 1% infiltrated to the right radial. Ultrasound obtained to assist with radial access. Arterial access obtained. A 5 turkish TIG catheter in over wire. Multiple views taken of left coronary artery. Catheter redirected to the RCA. Multiple views taken of right coronary artery. Catheter removed over the standard wire. wire out. A TR Band was successful obtaining hemostatsis at the Right Radial artery insertion site. Post Procedure: Pulses reassessed and unchanged. PERRLA. Strong, equal hand big machine consultant bilaterally. No VTE prophylaxis required. Medication's Wasted: Lidocaine 1% = 18 mL. Medication's Wasted: Heparin = 1000 units. Medication's Wasted: Nitro = 49.8 mg. Total IV fluids: 36 mL. Post-op diagnosis: Non Obstructive CAD. Complications: None. Estimated blood loss: 5mL-10mL. Responsiveness - Normal response to verbal stimuli; alert and oriented, PERRLA. Airway - Unaffected, no intervention required; spontaneous ventilation. Circulation: W/N/L, pulses unchanged. Nausea/Vomiting: No. Procedure completed. Patient transferred by wheelchair to CPRU. Access Site Site: Right Radial artery Sheath Size: 6 Fr Hemostasis Method: TR Band Hemostasis Success: Successful Procedure Medications Start: 8:40 AM Stop: 8:40 AM Medication: Versed Amount: 1 mg Route: I.V. Start: 8:40 AM Stop: 8:40 AM Medication: Fentanyl Amount: 50 mcg Route: I.V. Start: 8:50 AM Stop: 8:50 AM Medication: Versed Amount: 1 mg Route: I.V. Start: 8:50 AM Stop: 8:50 AM Medication: Fentanyl Amount: 50 mcg Route: I.V. Start: 8:54 AM Stop: 8:54 AM Medication: Nitrogylcerin Amount: 200 mcg Route: I.A. Start: 8:55 AM Stop: 8:55 AM Medication: Fentanyl Amount: 50 mcg Route: I.V. Start: 8:56 AM Stop: 8:56 AM Medication: Heparin Amount: 5000 units Route: I.V. I, the attending physician, have reviewed and verified all procedure medications. Yes, all medications given per verbal order History/Risk Factors Hypertension: Yes Dyslipidemia: No Peripheral Arterial Disease (PAD): No Myocardial Infarction (LA): No Obesity: Yes Renal Disease: No Tobacco Use: Current/Recent(w/in 1 year) Prior Interventions PCI: No CABG: No Valve Surgery: No Report Signatures Finalized by Bubba Oliva MD on 05/25/2021 09:37 AM
[2021-05-25] MEDS: diphenhydrAMINE 50 mg Capsule PO (08:00)
--- NOTE | 2021-05-25 08:31 | W.PM.OPSUD ---
Surgery/Procedure H&P Update DATE OF PROCEDURE: May 25, 2021 DATE H&P PERFORMED: 05/03/21 H&P UPDATE INFORMATION: I have reviewed H&P completed within last 30 days, I have examined patient prior to procedure and No changes to prior documentation PREOP DIAGNOSIS: Chest pain/abnormal stress test PRIMARY INDICATION FOR PROCEDURE: Chest pain/abnormal stress test PLANNED PROCEDURE: Operation Date: 05/25/21 08:30 Proposed Procedures p Cardiac Catheterization(Left) - Bubba Oliva M.D Possible percutaneous coronary intervention PATIENT REASSESSED PRIOR TO SEDATION, WITH NO CHANGE NOTED: Yes PHYSICAL EXAM: alert, oriented x 3, clear to auscultation bilaterally and regular rate & rhythm AIRWAY EVAL/ANESTHESIA PLAN: ASA III, Monitored Anesthesia, Local Anesthesia, Risks, benefits & alternatives of sedation and/or procedure discussed and Patient agrees to continue as planned ADDITIONAL INFORMATION: Left heart cath with possible percutaneous coronary intervention
--- NOTE | 2021-05-25 09:29 | PC.NURSE ---
recovery received pt from [facility]. pt alert and oriented x3. tr band on right wrist with palpable distal pulse. pt placed on monitor and will be monitored per protocol. plan to dc after 3-4 hrs per
== END 2021-05-25 12:49 | disposition home or self-care (01) ==
PROVIDERS: PCP Family Medicine; Visit Provider Internal Medicine
DX: R94.39 Abnormal result of other cardiovascular function study (principal); R07.9 Chest pain, unspecified; I10 Essential (primary) hypertension; E66.9 Obesity, unspecified; Z68.39 Body mass index [BMI] 39.0-39.9, adult; Z79.82 Long term (current) use of aspirin; Z87.891 Personal history of nicotine dependence; G43.711 Chronic migraine without aura, intractable, with status migrainosus
CPT/HCPCS: 36415; 80048; 85025; 85610; 93454; C1769; C1887; C1894; J1644; J2250; J3010; J3490; J7030; Q0163; Q9967

== ENCOUNTER → 2021-06-04 10:02 | Outpatient (BNVA) | payer MEDICAID, SELFPAY | PROVIDERS: PCP Family Medicine; Visit Provider Nurse Practitioner Family | DX: I25.10 Atherosclerotic heart disease of native coronary artery without angina pectoris (principal); M79.601 Pain in right arm | CPT/HCPCS: 99214 ==

== ENCOUNTER 2021-06-04 11:02 | Outpatient (CLI) | payer MEDICAID, SELFPAY ==
--- NOTE | 2021-06-04 12:16 | USCV_ITS ---
Mary Bernal Age: 35 Gender: F : 1985 Exam Date: 06/04/2021 12:20 Ordering Phys: Brenda Leach Technologist: Marisabel Rendon Exam Location: [facility] [place] Indication: post cath Risk Factors: POST CATH Previous Vascular Surgery: CATH Right BP: 118.00 / Left BP: 135.00 / RIGHT LEFT PSV PSV (cm/s) (cm/s) Waveform Waveform 108.4 Subclavian Proximal 111.7 Subclavian Distal 116.3 Axillary 90.0 Brachial Proximal 65.7 Brachial Mid 76.0 Brachial at AC 28.9 Radial Proximal 58.3 Radial Mid 68.4 Radial at Wrist 48.8 Ulnar Proximal 42.2 Ulnar Mid 43.6 Ulnar at Wrist FINDINGS I did not take arm pressures. Patent right upper extremity arteries. Normal arterial Doppler waveforms and velocities Normal blood pressure measurements were performed CONCLUSIONS Patent right upper extremity arteries. Possibly no significant arterial obstruction, based on the above findings Dr Nemesio Randolph MD [facility] (Electronically Signed) Final Date: 07 June 2021 18:19 S
== END 2021-06-04 11:03 | disposition home or self-care (01) ==
LOC: RAD 11:07
PROVIDERS: PCP Family Medicine; Visit Provider Nurse Practitioner Family
DX: M79.601 Pain in right arm (principal); Z98.890 Other specified postprocedural states
CPT/HCPCS: 80048; 93931

== ENCOUNTER → 2021-06-29 11:42 | Outpatient (BNVA) | payer MEDICAID, SELFPAY | PROVIDERS: PCP Family Medicine; Visit Provider Internal Medicine Cardiovascular Disease | DX: Z09 Encounter for follow-up examination after completed treatment for conditions other than malignant neoplasm (principal); F17.200 Nicotine dependence, unspecified, uncomplicated; F41.9 Anxiety disorder, unspecified | CPT/HCPCS: 99213 ==

== ENCOUNTER → 2021-08-04 11:36 | Outpatient (BNVA) | payer BC, MEDICAID, SELFPAY | PROVIDERS: PCP Family Medicine; Referring Provider Specialist; Visit Provider Specialist | DX: G40.909 Epilepsy, unspecified, not intractable, without status epilepticus (principal) | CPT/HCPCS: 95816 ==

== ENCOUNTER → 2021-08-05 08:21 | Outpatient (BNVA) | payer BC, MEDICAID, SELFPAY | PROVIDERS: PCP Family Medicine; Visit Provider Psychiatry & Neurology Psychiatry | DX: F43.12 Post-traumatic stress disorder, chronic (principal); F41.1 Generalized anxiety disorder; F33.2 Major depressive disorder, recurrent severe without psychotic features | CPT/HCPCS: 99204 ==

== ENCOUNTER → 2021-09-06 08:19 | Outpatient (BNVA) | payer BC, MEDICAID, SELFPAY | PROVIDERS: PCP Family Medicine; Visit Provider Specialist | DX: G43.711 Chronic migraine without aura, intractable, with status migrainosus (principal); F44.5 Conversion disorder with seizures or convulsions | CPT/HCPCS: 99214 ==

== ENCOUNTER → 2021-09-16 14:37 | Outpatient (BNVA) | payer BC, SELFPAY | PROVIDERS: PCP Family Medicine; Visit Provider Psychiatry & Neurology Psychiatry | DX: F33.2 Major depressive disorder, recurrent severe without psychotic features (principal); F41.1 Generalized anxiety disorder; F43.12 Post-traumatic stress disorder, chronic | CPT/HCPCS: 99213 ==

== ENCOUNTER → 2021-09-23 09:08 | Outpatient (BNVA) | payer BC, MEDICAID, SELFPAY | PROVIDERS: PCP Family Medicine; Visit Provider Specialist | DX: G43.711 Chronic migraine without aura, intractable, with status migrainosus (principal) | CPT/HCPCS: 64615; J0585 ==

== ENCOUNTER → 2021-09-29 11:40 | Outpatient (BNVA) | payer BC, SELFPAY | PROVIDERS: PCP Family Medicine; Visit Provider Nurse Practitioner Family | DX: R55 Syncope and collapse (principal); G43.109 Migraine with aura, not intractable, without status migrainosus; R11.0 Nausea; H61.22 Impacted cerumen, left ear; R42 Dizziness and giddiness; G43.119 Migraine with aura, intractable, without status migrainosus | CPT/HCPCS: 80053 ==

== ENCOUNTER → 2021-10-05 12:56 | Outpatient (BNVA) | payer MEDICAID, SELFPAY | PROVIDERS: PCP Family Medicine; Visit Provider Internal Medicine | DX: R55 Syncope and collapse (principal); I49.1 Atrial premature depolarization; I49.3 Ventricular premature depolarization; I47.2 Ventricular tachycardia | CPT/HCPCS: 93270 ==

== ENCOUNTER → 2021-12-16 08:06 | Outpatient (BNVA) | payer MEDICAID, SELFPAY | PROVIDERS: PCP Family Medicine; Visit Provider Specialist | DX: R26.89 Other abnormalities of gait and mobility (principal); F44.5 Conversion disorder with seizures or convulsions; F33.2 Major depressive disorder, recurrent severe without psychotic features; M47.816 Spondylosis without myelopathy or radiculopathy, lumbar region; Z98.1 Arthrodesis status; G43.711 Chronic migraine without aura, intractable, with status migrainosus | CPT/HCPCS: 64615; 99213; 99214; J0585 ==

== ENCOUNTER → 2022-01-19 14:05 | Outpatient (BNVA) | payer MEDICAID, SELFPAY | PROVIDERS: PCP Family Medicine; Visit Provider Nurse Practitioner Family | DX: I10 Essential (primary) hypertension (principal) | CPT/HCPCS: 99213; 99214 ==

== ENCOUNTER → 2022-01-25 11:58 | Outpatient (BNVA) | payer MEDICAID, SELFPAY | PROVIDERS: PCP Family Medicine; Visit Provider Specialist | DX: R29.6 Repeated falls (principal); F44.5 Conversion disorder with seizures or convulsions; F33.2 Major depressive disorder, recurrent severe without psychotic features; F41.1 Generalized anxiety disorder; F43.12 Post-traumatic stress disorder, chronic; G43.109 Migraine with aura, not intractable, without status migrainosus | CPT/HCPCS: 36415; 80053; 82607; 84443; 85025; 99214 ==

== ENCOUNTER 2022-02-08 15:28 | Outpatient (CLI) | payer MEDICAID, SELFPAY ==
--- NOTE | 2022-02-08 16:00 | MR_ITS ---
WS: [id number] MRI BRAIN WITHOUT CONTRAST HISTORY: R51.9 - Headache, unspecified COMPARISON: None available. TECHNIQUE: Diffusion imaging, multiplanar T1, T2 and FLAIR imaging obtained. No evidence for acute infarct or hemorrhage. Carballo-white matter differentiation is normal. There are a few scattered T2 and FLAIR signal hyperintensities in the subcortical and periventricular white matter. No prior infarct. No mass effect or infiltrating lesions. No significant atrophy or as ymmetry. Ventricles and extra-axial spaces are normal. No inferior displacement of cerebellar tonsils. The sella turcica and pituitary gland are unremarkabl e. Dural venous sinuses and [place] of Sneed demonstrate no abnormality on this unenhanced studies. Paranasal sinuses: Clear. Mastoid air cells: Normal. Calvarium and scalp: Intact. MR/MR head wo con* [id number] IMPRESSION: 1. No acute infarct or significant atrophy. 2. No prior hemorrhage. 3. There are a few small scattered T2 and FLAIR signal hyperintensities which can be seen with small vessel atherosclerotic disease, migraines, hypertension or diabetes. Very mild small vessel ischemic
== END 2022-02-08 15:29 | disposition home or self-care (01) ==
LOC: RAD 15:29
PROVIDERS: PCP Family Medicine; Visit Provider Family Medicine
DX: R51.9 Headache, unspecified (principal); R29.6 Repeated falls
CPT/HCPCS: 70551

== ENCOUNTER → 2022-03-10 08:57 | Outpatient (BNVA) | payer MEDICAID, SELFPAY | PROVIDERS: PCP Family Medicine; Visit Provider Specialist | DX: G43.711 Chronic migraine without aura, intractable, with status migrainosus (principal); R29.6 Repeated falls; M54.9 Dorsalgia, unspecified; F44.5 Conversion disorder with seizures or convulsions | CPT/HCPCS: 64615; 95911; 99213; J0585 ==

== ENCOUNTER → 2022-05-27 12:48 | Outpatient (BNVA) | payer MEDICAID, SELFPAY | PROVIDERS: PCP Family Medicine; Visit Provider Nurse Practitioner Family | DX: F41.9 Anxiety disorder, unspecified (principal); G43.109 Migraine with aura, not intractable, without status migrainosus; G40.909 Epilepsy, unspecified, not intractable, without status epilepticus; I10 Essential (primary) hypertension; F43.22 Adjustment disorder with anxiety; I25.10 Atherosclerotic heart disease of native coronary artery without angina pectoris; E78.2 Mixed hyperlipidemia; H60.92 Unspecified otitis externa, left ear; J32.0 Chronic maxillary sinusitis; H61.22 Impacted cerumen, left ear; Z76.89 Persons encountering health services in other specified circumstances | CPT/HCPCS: 80053; 80061 ==

== ENCOUNTER → 2022-06-02 08:59 | Outpatient (BNVA) | payer MEDICAID, SELFPAY | PROVIDERS: PCP Family Medicine; Visit Provider Specialist | DX: G43.711 Chronic migraine without aura, intractable, with status migrainosus (principal) | CPT/HCPCS: 64615; J0585 ==

== ENCOUNTER → 2022-06-29 08:32 | Outpatient (BNVA) | payer MEDICAID, SELFPAY | PROVIDERS: PCP Family Medicine; Visit Provider Family Medicine | DX: R39.198 Other difficulties with micturition (principal); G43.909 Migraine, unspecified, not intractable, without status migrainosus; R30.0 Dysuria | CPT/HCPCS: 81000 ==

== ENCOUNTER → 2022-07-01 09:30 | Outpatient (BNVA) | payer MEDICAID, SELFPAY | PROVIDERS: PCP Family Medicine; Visit Provider Internal Medicine | DX: Z01.818 Encounter for other preprocedural examination (principal); R06.01 Orthopnea; R07.9 Chest pain, unspecified; I10 Essential (primary) hypertension; Z79.82 Long term (current) use of aspirin | CPT/HCPCS: 99214 ==

== ENCOUNTER → 2022-09-08 09:12 | Outpatient (BNVA) | payer MEDICAID, SELFPAY | PROVIDERS: PCP Family Medicine; Visit Provider Specialist | DX: G43.711 Chronic migraine without aura, intractable, with status migrainosus (principal) | CPT/HCPCS: 64615; J0585 ==

== ENCOUNTER → 2022-09-14 13:52 | Outpatient (BNVA) | payer MEDICAID, SELFPAY | PROVIDERS: PCP Family Medicine; Visit Provider Nurse Practitioner Family | DX: M25.531 Pain in right wrist (principal); W19.XXXA Unspecified fall, initial encounter; Y92.009 Unspecified place in unspecified non-institutional (private) residence as the place of occurrence of the external cause; M79.641 Pain in right hand | CPT/HCPCS: 73110; 73130 ==

== ENCOUNTER 2022-11-01 14:30 | Outpatient (CLI) | payer MEDICAID, SELFPAY ==
--- NOTE | 2022-11-01 14:52 | MM_ITS ---
WS: [id number] BILATERAL 3D TOMOSYNTHESIS DIGITAL DIAGNOSTIC MAMMOGRAPHY WITH CAD CLINICAL INFORMATION: LUMP BREAST, BREAST PAIN, HISTORY: Bilateral breast pain. Left milky yellow nipple discharge. Bilateral breast lumps. COMPARISON: Baseline TECHNIQUE: Bilateral CC, MLO, and ML views. FINDINGS: Scattered fibroglandular densities bilaterally. Subareolar nodular density right breast measure 1.3 x 1.2 cm. Lucent centered calcifications. Incidental intramammary lymph node upper outer right breast. No suspicious abnormalities left breast in the areas of palpable concern or pain. Ultrasound of the a reas of concern pending ULTRASOUND BREAST BILATERAL TECHNIQUE: Ultrasound bilateral breast focused area of concern. CLINICAL INFORMATION: LUMP BREAST, BREAST PAIN, FINDINGS: RIGHT BREAST: Hypoechoic lobulated lesion subareolar right breast just lateral to the nipple measurin g 1.1 x 0.8 x 1.1 cm. This is indeterminate and recommend further evaluation with ultrasound-guided b iopsy. Associated vascularity. This corresponds to the lobulated lesion on the mammogram. Incidental lymph node right axillary tail also seen on the mammogram. No other suspicious abnormalities right br east. LEFT BREAST: Ultrasound left breast demonstrates no suspicious cystic or solid lesions. No suspicious lesions to target for biopsy. Tiny cystic lesion or dilated duct has a benign appearance at the 5 o' clock position. No other suspicious findings. IMPRESSION: Recommend ultrasound-guided biopsy lobulated right subareolar breast lesion MM/[place] [id number] BI-RADS: 4-Suspicious Finding-Biopsy Should Be Considered FOLLOW UP: US Guided Biopsy Recommended
--- NOTE | 2022-11-01 15:30 | US_ITS ---
WS: [id number] BILATERAL 3D TOMOSYNTHESIS DIGITAL DIAGNOSTIC MAMMOGRAPHY WITH CAD CLINICAL INFORMATION: LUMP BREAST, BREAST PAIN, HISTORY: Bilateral breast pain. Left milky yellow nipple discharge. Bilateral breast lumps. COMPARISON: Baseline TECHNIQUE: Bilateral CC, MLO, and ML views. FINDINGS: Scattered fibroglandular densities bilaterally. Subareolar nodular density right breast measure 1.3 x 1.2 cm. Lucent centered calcifications. Incidental intramammary lymph node upper outer right breast. No suspicious abnormalities left breast in the areas of palpable concern or pain. Ultrasound of the a reas of concern pending ULTRASOUND BREAST BILATERAL TECHNIQUE: Ultrasound bilateral breast focused area of concern. CLINICAL INFORMATION: LUMP BREAST, BREAST PAIN, FINDINGS: RIGHT BREAST: Hypoechoic lobulated lesion subareolar right breast just lateral to the nipple measurin g 1.1 x 0.8 x 1.1 cm. This is indeterminate and recommend further evaluation with ultrasound-guided b iopsy. Associated vascularity. This corresponds to the lobulated lesion on the mammogram. Incidental lymph node right axillary tail also seen on the mammogram. No other suspicious abnormalities right br east. LEFT BREAST: Ultrasound left breast demonstrates no suspicious cystic or solid lesions. No suspicious lesions to target for biopsy. Tiny cystic lesion or dilated duct has a benign appearance at the 5 o' clock position. No other suspicious findings. IMPRESSION: Recommend ultrasound-guided biopsy lobulated right subareolar breast lesion US/US breast BI limited* [id number] BI-RADS: 4-Suspicious Finding-Biopsy Should Be Considered FOLLOW UP: US Guided Biopsy Recommended
== END 2022-11-01 14:31 | disposition home or self-care (01) ==
PROVIDERS: PCP Family Medicine; Visit Provider Nurse Practitioner Family
DX: N63.41 Unspecified lump in right breast, subareolar (principal); N63.23 Unspecified lump in the left breast, lower outer quadrant; N64.52 Nipple discharge; N64.4 Mastodynia
CPT/HCPCS: 76642; 77062; G0279

== ENCOUNTER 2022-11-16 12:48 | Outpatient (CLI) | payer MEDICAID, SELFPAY ==
--- NOTE | 2022-11-16 13:45 | US_ITS ---
WS: [id number] ULTRASOUND-GUIDED RIGHT BREAST BIOPSY HISTORY: Subareolar cystic mass. COMPARISON: 11/01/2022 Procedure, risks and complications are explained to the patient. Medications are reviewed. Consent is obtained. The mass in the RIGHT breast is localized with ultrasound. Skin is cleansed with ChloraPrep and anest hetized with 1% buffered lidocaine. Small dermatome is made. Under sterile conditions mass is biopsie d with a 14-gauge Achieve needle. Multiple core biopsies are performed. Material placed in formalin a nd sent to pathology for review. No complications encountered. Breast tissue marker (Bard ultrasound enhanced ribbon): Single. Patient left the radiology suite with no complications. Patient is instructed to return to [facility] or [facility] with any concerns. IMPRESSION: 1. Uncomplicated core needle biopsy RIGHT breast subareolar mass. 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 RECOMMENDATION: Follow-up with primary care provider. No additional imaging nec essary.
== END 2022-11-16 12:49 | disposition home or self-care (01) ==
PROVIDERS: PCP Family Medicine; Visit Provider Nurse Practitioner Family
DX: D24.1 Benign neoplasm of right breast (principal); N63.41 Unspecified lump in right breast, subareolar
CPT/HCPCS: 19083; 88305

== ENCOUNTER → 2022-12-08 09:53 | Outpatient (BNVA) | payer MEDICAID, SELFPAY | PROVIDERS: PCP Family Medicine; Visit Provider Specialist | DX: G43.711 Chronic migraine without aura, intractable, with status migrainosus (principal) | CPT/HCPCS: 64615 ==

== ENCOUNTER → 2022-12-26 14:49 | Outpatient (BNVA) | payer MEDICAID, SELFPAY | PROVIDERS: PCP Family Medicine; Referring Provider Family Medicine; Visit Provider Nurse Practitioner Family | DX: D22.5 Melanocytic nevi of trunk (principal); L57.8 Other skin changes due to chronic exposure to nonionizing radiation; L81.4 Other melanin hyperpigmentation; L23.9 Allergic contact dermatitis, unspecified cause | CPT/HCPCS: 99203 ==

== ENCOUNTER → 2023-02-01 10:43 | Outpatient (BNVA) | payer MEDICAID, SELFPAY | PROVIDERS: PCP Family Medicine; Visit Provider Nurse Practitioner Family | DX: L23.9 Allergic contact dermatitis, unspecified cause (principal); D22.5 Melanocytic nevi of trunk; L57.8 Other skin changes due to chronic exposure to nonionizing radiation; L81.4 Other melanin hyperpigmentation | CPT/HCPCS: 11104; 99213 ==

== ENCOUNTER 2023-02-12 15:18 | Emergency (ER) | payer MEDICAID, SELFPAY ==
[2023-02-12 15:35] VITALS: BP 143/97; PULSE 81; RESP 16; TEMP 36.4; O2SAT 98; BMI 35.4
--- NOTE | 2023-02-12 15:41 | XRR_ITS ---
PROCEDURE INFORMATION: Exam: XR Chest Exam date and time: 02/12/2023 3:45 PM Age: 37 years old Clinical indication: Patient HX: Dyspnea; Cough; Weakness; Nausea/vomiting; Additional info: Dyspnea/cough TECHNIQUE: Imaging protocol: Radiologic exam of the chest. Views: 1 view. COMPARISON: CR XR chest 2V* [id number] 07/21/2020 4:56 PM FINDINGS: Lungs: Bibasilar atelectasis versus minimal infiltrate. Pleural spaces: Unremarkable. No pleural effusion. No pneumothorax. Heart/Mediastinum: Unremarkable. No cardiomegaly. Bones/joints: Unremarkable. XR/XR chest 1V portable [id number] IMPRESSION: Bibasilar atelectasis versus minimal infiltrate.
--- NOTE | 2023-02-12 15:41 | ECG_ITS ---
[facility] Test Date: 2023-02-12 Pat Name: Mary Bernal Department: Room: Gender: Female Sterilization Technician: : 1985 Requested By: Chapito Curry Order Number: [id number] Jordan MD: Nemesio Randolph M.D. Measurements Intervals Gladys Rate: 72 P: 52 ME: 151 QRS: 57 QRSD: 83 T: 53 QT: 383 QTc: 421 Interpretive Statements SINUS RHYTHM No previous ECG available for comparison Electronically Signed On 02-12-2023 22:09:39 CIRCUITS ENGINEER by Nemesio Randolph M.D. [id number]
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
--- NOTE | 2023-02-12 16:11 | CTR_ITS ---
PROCEDURE INFORMATION: Exam: CT Abdomen And Pelvis Without Contrast Exam date and time: 02/12/2023 4:21 PM Age: 37 years old Clinical indication: Abdominal pain; Generalized; Prior surgery; Surgery date: 6+ months; Surgery type: Gb, tubal TECHNIQUE: Imaging protocol: Computed tomography of the abdomen and pelvis without contrast. Radiation optimization: All CT scans at this facility use at least one of these dose optimization techniques: automated exposure control; mA and/or kV adjustment per patient size (includes targeted exams where dose is matched to clinical indication); or iterative reconstruction. REPORTING DATA: Count of CT and Cardiac NM exams in prior 12 months: This patient has received 0 known CTs and 0 known cardiac nuclear medicine studies in the 12 months prior to the current study. COMPARISON: CR XR hip LT 2-3V wo/w pel* [id number] 12/21/2019 3:38 PM RADIATION DOSE METRICS: Total DLP (mGy-cm): 925.32 FINDINGS: Lungs: Emphysematous changes. Liver: Hepatic steatosis. Gallbladder and bile ducts: Cholecystectomy. Pancreas: Normal. No ductal dilation. Spleen: Normal. No splenomegaly. Adrenal glands: Normal. No mass. Kidneys and ureters: Right kidney punctate nonobstructing calyceal stone. Stomach and bowel: Unremarkable. No obstruction. No mucosal thickening. Appendix: No evidence of appendicitis. Intraperitoneal space: Unremarkable. No free air. No significant fluid collection. Vasculature: Unremarkable. No abdominal aortic aneurysm. Lymph nodes: Unremarkable. No enlarged lymph nodes. Urinary bladder: Unremarkable as visualized. Reproductive: Unremarkable as visualized. Bones/joints: Lumbar spine surgical hardware postsurgical changes. Left lateral femoral head subchondral degenerative cyst. Soft tissues: Unremarkable. CT/CT abdomen pelvis wo con [id number] IMPRESSION: 1. Negative for focal acute inflammatory process in the abdomen or pelvis. 2. Emphysematous changes. 3. Hepatic steatosis. 4. Cholecystectomy. 5. Right kidney punctate nonobstructing calyceal stone. 6. Lumbar spine surgical hardware postsurgical changes. 7. Left lateral femoral head subchondral degenerative cyst.
[2023-02-12] MEDS: ondansetron 2 mg/ML SDV 2 mL 4 MG IVP (16:16)
[2023-02-12] MEDS: morphine 4 mg/mL SDV 1 mL IVP (16:17)
[2023-02-12] MEDS: sodium chloride 0.9% 1,000 ML 999 ML IV (16:17)
[2023-02-12 16:36] LABS: Urine Appearance Hazy (CLEAR); Urine Color Yellow (Yellow); pH Urine 6 (5-7)
[2023-02-12 16:37] LABS: Add Urine Microscopic? YES; Bilirubin Urine Neg (Negative); Blood Urine Neg (Negative); Glucose Urine UA Norm (Normal); Ketones Urine 1+ (Negative); Leukocyte Esterase Urine Negative (Negative); Nitrate Urine Negative (Negative); Protein Urine Neg (Negative); RBC Urine 0-4 /hpf (0-2); Urobilinogen Urine Neg (Negative); WBC Urine 0-4 /hpf (0-5)
[2023-02-12 16:38] LABS: Add Urine Culture? No; Bacteria Urine 2+ /hpf; Mucus Urine 2+ /hpf; Squamous Epithelial Cell Urine 15-25 /hpf (0-5)
[2023-02-12 16:59] LABS: Basophils % 0.1 %; Eosinophils % 0.2 %; Hematocrit 48.3 % (36-47); Lymphocytes # 2.3 10^3/uL (0.8-4.8); Lymphocytes % 13.5 %; Mean Corpuscular HGB Conc 33.1 g/dL (30-55); Mean Corpuscular Hemoglobin 32.7 pg (27-33); Mean Corpuscular Volume 98.6 fl (85-98); Monocytes % 5.8 %; Neutrophils # 13.85 10^3/uL (1.8-7.7); Neutrophils % 79.8 %; Nucleated Red Blood Cells % 0 %; Platelet Count 441 10^3/cmm (157-399); Red Cell Distribution Width 12.9 % (12.1-15.1); White Blood Count 17.36 10^3/uL (3.29-11.43)
[2023-02-12 17:18] LABS: Alanine Aminotransferase 11 U/L (0-33); Albumin Level 4.9 g/dL (3.5-5.2); Alkaline Phosphatase 90 U/L (35-105); Anion Gap 16.9 (5-19); Aspartate Amino Transferase 13 U/L (0-32); Blood Urea Nitrogen 15 mg/dL (6-20); Calcium 10.5 mg/dL (8.5-10.5); Carbon Dioxide 25 mmol/L (22-29); Chloride 98 mmol/L (98-107); Globulin 3.5 g/dL (1.3-4.6); Glomerular Filtration Rate 93.6 mL/min (90-130); Glucose 95 mg/dL (65-115); Lipase 24 U/L (13-60); Osmolality Calculated 283 mOsm/kg (285-295); Potassium 3.9 mmol/L (3.5-5.1); Sodium 136 mmol/L (136-145); Total Bilirubin 0.3 mg/dL (0.15-1.2); Total Protein 8.4 g/dL (6.6-8.7)
[2023-02-12] MEDS: promethazine 25 mg/mL SDV 1 mL IM (18:15)
[2023-02-12] MEDS: haloperidol inj 5 mg/mL INJ 1 mL 2.5 MG IVP (18:36)
[2023-02-12] MEDS: LORazepam 2 mg/mL INJ 1 mL IVP (18:36)
[2023-02-12 20:14] VITALS: BP 165/97; PULSE 82; O2SAT 93
== END 2023-02-12 20:15 | disposition home or self-care (01) ==
PROVIDERS: Emergency Provider Family Medicine; PCP Family Medicine
DX: K52.9 Noninfective gastroenteritis and colitis, unspecified (principal); Z79.82 Long term (current) use of aspirin; K76.0 Fatty (change of) liver, not elsewhere classified; I10 Essential (primary) hypertension
CPT/HCPCS: 71045; 74176; 80053; 81001; 83690; 85025; 93005; 96361; 96372; 96374; 96375; 99285; J1630; J2060; J2270; J2405; J2550; J7030

== ENCOUNTER 2023-02-14 11:19 | Emergency (ER) | payer MEDICAID, SELFPAY ==
[2023-02-14] VITALS (7 sets, daily range): BP systolic 151–164; BP diastolic 104–114; PULSE 71–83; RESP 16–18; O2SAT 98–100; BMI 35.4
[2023-02-14 11:48] LABS: Basophils % 0.1 %; Eosinophils % 0.1 %; Hematocrit 48.1 % (36-47); Lymphocytes # 2.8 10^3/uL (0.8-4.8); Lymphocytes % 16.3 %; Mean Corpuscular HGB Conc 33.5 g/dL (30-55); Mean Corpuscular Hemoglobin 32.4 pg (27-33); Mean Corpuscular Volume 96.8 fl (85-98); Monocytes # 1.4 10^3/uL (0.2-0.9); Monocytes % 8.3 %; Neutrophils # 12.65 10^3/uL (1.8-7.7); Neutrophils % 74.8 %; Nucleated Red Blood Cells % 0 %; Platelet Count 453 10^3/cmm (157-399); Red Blood Count 4.97 10^6/uL (3.85-5.65); Red Cell Distribution Width 12.9 % (12.1-15.1); White Blood Count 16.92 10^3/uL (3.29-11.43)
[2023-02-14 12:03] LABS: Alanine Aminotransferase 52 U/L (0-33); Albumin Level 4.8 g/dL (3.5-5.2); Alkaline Phosphatase 84 U/L (35-105); Anion Gap 16.9 (5-19); Aspartate Amino Transferase 41 U/L (0-32); Blood Urea Nitrogen 20 mg/dL (6-20); Calcium 10.3 mg/dL (8.5-10.5); Carbon Dioxide 26 mmol/L (22-29); Chloride 98 mmol/L (98-107); Globulin 3.4 g/dL (1.3-4.6); Glomerular Filtration Rate 80.3 mL/min (90-130); Glucose 106 mg/dL (65-115); Lipase 30 U/L (13-60); Osmolality Calculated 287 mOsm/kg (285-295); Potassium 3.9 mmol/L (3.5-5.1); Sodium 137 mmol/L (136-145); Total Bilirubin 0.5 mg/dL (0.15-1.2); Total Protein 8.2 g/dL (6.6-8.7)
[2023-02-14 12:34] LABS: HCG Qualitative Urine. Negative (Negative)
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
[2023-02-14 12:38] LABS: Urine Appearance Hazy (CLEAR); Urine Color Yellow (Yellow); pH Urine 5 (5-7)
[2023-02-14 12:39] LABS: Bilirubin Urine 1+ (Negative); Blood Urine 2+ (Negative); Glucose Urine UA Norm (Normal); Ketones Urine 1+ (Negative); Nitrate Urine Negative (Negative); Protein Urine 1+ (Negative); Urobilinogen Urine 1 mg/dL (Negative)
[2023-02-14 12:40] LABS: Add Urine Microscopic? YES; Leukocyte Esterase Urine 1+ (Negative)
[2023-02-14 12:43] LABS: Amphetamines Screen Urine Negative (Negative); Barbiturates Screen Urine Negative (Negative); Benzodiazepines Screen Urine Positive (Negative); Cocaine Screen Urine Negative (Negative); Opiate Screen Urine Positive (Negative); PCP Screen Urine Negative (Negative); THC Screen Urine Positive (Negative)
[2023-02-14 12:47] LABS: Amorphous Sediment Urine 1+ /hpf; Bacteria Urine TRACE /hpf; Mucus Urine 4+ /hpf; RBC Urine 0-4 /hpf (0-2); Squamous Epithelial Cell Urine 0-4 /hpf (0-5); Transitional Epi Cells Urine 0-4 /hpf; WBC Urine 0-4 /hpf (0-5)
[2023-02-14 12:48] LABS: Add Urine Culture? No
[2023-02-14] MEDS: ondansetron 2 mg/ML SDV 2 mL 4 MG IVP (12:50)
[2023-02-14] MEDS: sodium chloride 0.9% 1,000 ML 999 ML IV (12:50)
[2023-02-14] MEDS: fentaNYL 50 mcg/mL INJ 2mL IVP (13:26)
--- NOTE | 2023-02-14 14:06 | PC.NURSE ---
PER DR. DERAS PATIENT DOES NOT NEED TO HAVE BLOOD CULTURES DRAWN PRIOR TO ANTIBIOTIC INFUSION.
[2023-02-14] MEDS: cefTRIAXone 1,000 MG in sodium chloride 0.9% (plus) 50 ML 100 MG IV (14:08)
== END 2023-02-14 14:40 | disposition home or self-care (01) ==
PROVIDERS: Emergency Provider Internal Medicine; PCP Family Medicine
DX: N39.0 Urinary tract infection, site not specified (principal); N20.0 Calculus of kidney; K52.9 Noninfective gastroenteritis and colitis, unspecified; Z79.82 Long term (current) use of aspirin; I10 Essential (primary) hypertension
CPT/HCPCS: 36415; 80053; 80306; 81001; 81025; 83690; 85025; 96374; 96375; 99284; J0696; J2405; J3010; J7030

== ENCOUNTER → 2023-03-02 09:09 | Outpatient (BNVA) | payer MEDICAID, SELFPAY | PROVIDERS: PCP Family Medicine; Visit Provider Specialist | DX: F44.5 Conversion disorder with seizures or convulsions (principal); M48.062 Spinal stenosis, lumbar region with neurogenic claudication; G47.10 Hypersomnia, unspecified; G43.711 Chronic migraine without aura, intractable, with status migrainosus | CPT/HCPCS: 64615; 64643; 99214; J0585 ==

== ENCOUNTER 2023-04-05 06:00 | Outpatient (RCR) | payer MEDICAID, SELFPAY | END 2023-04-26 23:59 | disposition home or self-care (01) | LOC: APT 06:00 | PROVIDERS: PCP Family Medicine; Visit Provider General Practice | DX: M54.9 Dorsalgia, unspecified (principal); G89.29 Other chronic pain | CPT/HCPCS: 97110; 97161; 97530 ==

== ENCOUNTER → 2023-04-27 15:33 | Outpatient (BNVA) | payer MEDICAID, SELFPAY | PROVIDERS: PCP Family Medicine; Visit Provider Family Medicine | DX: M25.562 Pain in left knee (principal) | CPT/HCPCS: 73562 ==

== ENCOUNTER 2023-05-18 07:11 | Outpatient (CLI) | payer MEDICAID, SELFPAY ==
--- NOTE | 2023-05-18 07:15 | MR_ITS ---
WS: [id number] MRI LEFT KNEE HISTORY: M25.562 - Pain in left knee COMPARISON: Radiograph 04/27/2023 Anterior cruciate ligament: Intact. Posterior cruciate ligament: Intact. Medial collateral ligament: Intact. Posterior lateral corner structures: Intact. Medial menisci: Mild surface irregularity involving the posterior horn. There is a small focal fluid collection in the posterior knee adjacent to the distal PCL and also contiguous with the posterior ho rn of the meniscus. I suspect this is probably a meniscal cyst which is associated with the tear. I s uspect this cyst is associated with an occult meniscal tear of the posterior horn. Lateral meniscus: Blunting of the posterior horn lateral meniscus seen on the sagittal imaging. On t he coronal image there is linear increased T2 signal extending through the posterior horn. This is on ly seen on one image but suspicious for radial tear. Abnormality should be noted on more than one alma ge to confirm tear. Extensor mechanism: Distal quadriceps tendon and patellar tendons are intact. Fluid and soft tissue: No joint effusion. No Huber's cyst. Osseous and articular structures: Patellofemoral compartment: Normal. Medial compartment: No significant marrow edema. No cartilage signal abnormality. Lateral compartment: Mild chondromalacia. Superficial fraying of the cartilage. No marrow edema. IMPRESSION: 1. No ACL tear. 2. There is a small cyst closely associated with the posterior horn of the medial meniscus and the d istal PCL. There is adjacent surface irregularity of the posterior meniscus. I favor this cyst is a meniscal cyst associated with an occult tear of the peripheral posterior horn. 3. Blunting posterior horn lateral meniscus seen best on the sagittal imaging. Suspect there is a ra dial tear toward the free edge. 4. No marrow edema or fracture.
== END 2023-05-18 07:12 | disposition home or self-care (01) ==
LOC: RAD 07:12
PROVIDERS: PCP Family Medicine; Visit Provider Family Medicine
DX: M25.562 Pain in left knee (principal)
CPT/HCPCS: 73721

== ENCOUNTER → 2023-06-01 09:16 | Outpatient (BNVA) | payer MEDICAID, SELFPAY | PROVIDERS: PCP Family Medicine; Visit Provider Specialist | DX: G43.109 Migraine with aura, not intractable, without status migrainosus (principal); F44.5 Conversion disorder with seizures or convulsions; G47.10 Hypersomnia, unspecified; G47.33 Obstructive sleep apnea (adult) (pediatric) | CPT/HCPCS: 64615; 99213; J0585 ==

== ENCOUNTER → 2023-07-05 13:06 | Outpatient (BNVA) | payer MEDICAID, SELFPAY | PROVIDERS: PCP Family Medicine; Visit Provider Internal Medicine | DX: R06.01 Orthopnea (principal); R07.9 Chest pain, unspecified; I10 Essential (primary) hypertension | CPT/HCPCS: 99214 ==

== ENCOUNTER 2023-07-20 06:00 | Outpatient (RCR) | payer MEDICAID, SELFPAY | END 2023-07-25 23:59 | disposition home or self-care (01) | LOC: APT 06:00 | PROVIDERS: Visit Provider Nurse Practitioner Family | DX: M54.9 Dorsalgia, unspecified (principal); G89.29 Other chronic pain | CPT/HCPCS: 97110; 97161 ==

== ENCOUNTER 2023-07-26 06:00 | Outpatient (RCR) | payer MEDICAID, SELFPAY | END 2023-08-25 23:59 | disposition home or self-care (01) | LOC: APT 06:00 | PROVIDERS: Visit Provider Nurse Practitioner Family | DX: M54.9 Dorsalgia, unspecified (principal); G89.29 Other chronic pain | CPT/HCPCS: 97110 ==

== ENCOUNTER 2023-08-26 06:00 | Outpatient (RCR) | payer MEDICAID, SELFPAY | END 2023-09-24 23:59 | disposition home or self-care (01) | LOC: APT 06:00 | PROVIDERS: PCP Family Medicine; Visit Provider Nurse Practitioner Family | DX: M54.9 Dorsalgia, unspecified (principal); G89.29 Other chronic pain | CPT/HCPCS: 97110 ==

== ENCOUNTER → 2023-08-30 16:01 | Outpatient (BNVA) | payer OTHER, SELFPAY | PROVIDERS: PCP Family Medicine; Visit Provider Family Medicine | DX: N64.4 Mastodynia (principal); J45.909 Unspecified asthma, uncomplicated; I10 Essential (primary) hypertension; E78.2 Mixed hyperlipidemia; E55.9 Vitamin D deficiency, unspecified | CPT/HCPCS: 80053; 80061; 82306; 84443; 85025 ==

== ENCOUNTER → 2023-09-07 09:30 | Outpatient (BNVA) | payer MEDICAID, SELFPAY | PROVIDERS: PCP Family Medicine; Visit Provider Specialist | DX: G43.711 Chronic migraine without aura, intractable, with status migrainosus (principal); F44.5 Conversion disorder with seizures or convulsions; G47.10 Hypersomnia, unspecified; G47.33 Obstructive sleep apnea (adult) (pediatric); G43.109 Migraine with aura, not intractable, without status migrainosus | CPT/HCPCS: 64615; 99214; J0585 ==

== ENCOUNTER 2023-10-16 13:46 | Outpatient (CLI) | payer MEDICAID, SELFPAY ==
--- NOTE | 2023-10-16 14:00 | MM_ITS ---
WS: [id number] BILATERAL 3D TOMOSYNTHESIS DIGITAL DIAGNOSTIC MAMMOGRAPHY WITH CAD CLINICAL INFORMATION: LEFT BREAST PAINS HISTORY: LEFT breast discharge and pain. COMPARISON: 11/01/2022 TECHNIQUE: Bilateral CC, MLO, and ML views. FINDINGS: Scattered fibroglandular densities bilaterally. Stable small ovoid nodule subareolar RIGHT breast wit h breast biopsy marker. Prior biopsy demonstrated fibroadenoma. No new suspicious abnormalities in the subareolar LEFT breast or the area of concern in the lower inn er LEFT breast. Ultrasound of these areas is pending. ULTRASOUND BREAST LEFT TECHNIQUE: Ultrasound left breast focused area of concern. CLINICAL INFORMATION: LEFT BREAST PAINS FINDINGS: Ultrasound subareolar LEFT breast. No suspicious abnormalities subareolar LEFT breast. No fluid colle ctions. Ultrasound LEFT breast at the 8 o'clock position 6 cm from the nipple in the area of concern. No evid ence of underlying fluid collection or abscess. No other suspicious abnormalities in this area. MM/[place] [id number] IMPRESSION: BI-RADS: 2-Benign FOLLOW UP: 1 Year Follow-up Recommend return to annual screening mammography.
--- NOTE | 2023-10-16 14:15 | US_ITS ---
WS: [id number] BILATERAL 3D TOMOSYNTHESIS DIGITAL DIAGNOSTIC MAMMOGRAPHY WITH CAD CLINICAL INFORMATION: LEFT BREAST PAINS HISTORY: LEFT breast discharge and pain. COMPARISON: 11/01/2022 TECHNIQUE: Bilateral CC, MLO, and ML views. FINDINGS: Scattered fibroglandular densities bilaterally. Stable small ovoid nodule subareolar RIGHT breast wit h breast biopsy marker. Prior biopsy demonstrated fibroadenoma. No new suspicious abnormalities in the subareolar LEFT breast or the area of concern in the lower inn er LEFT breast. Ultrasound of these areas is pending. ULTRASOUND BREAST LEFT TECHNIQUE: Ultrasound left breast focused area of concern. CLINICAL INFORMATION: LEFT BREAST PAINS FINDINGS: Ultrasound subareolar LEFT breast. No suspicious abnormalities subareolar LEFT breast. No fluid colle ctions. Ultrasound LEFT breast at the 8 o'clock position 6 cm from the nipple in the area of concern. No evid ence of underlying fluid collection or abscess. No other suspicious abnormalities in this area. US/US breast LT complete [id number] IMPRESSION: BI-RADS: 2-Benign FOLLOW UP: 1 Year Follow-up Recommend return to annual screening mammography.
== END 2023-10-16 13:47 | disposition home or self-care (01) ==
LOC: RAD 13:46
PROVIDERS: PCP Family Medicine; Visit Provider Family Medicine
DX: N64.4 Mastodynia (principal); R92.323 Mammographic fibroglandular density, bilateral breasts; N63.10 Unspecified lump in the right breast, unspecified quadrant
CPT/HCPCS: 76641; 77062; G0279

== ENCOUNTER → 2023-12-07 15:15 | Outpatient (BNVA) | payer MEDICAID, SELFPAY | PROVIDERS: PCP Family Medicine; Visit Provider Specialist | DX: F44.5 Conversion disorder with seizures or convulsions (principal); G47.10 Hypersomnia, unspecified; G47.33 Obstructive sleep apnea (adult) (pediatric); G43.711 Chronic migraine without aura, intractable, with status migrainosus; G43.109 Migraine with aura, not intractable, without status migrainosus | CPT/HCPCS: 64615; 99212; J0585 ==

== ENCOUNTER 2024-02-12 15:59 | Outpatient (CLI) | payer MEDICAID, SELFPAY | END 2024-02-12 16:00 | disposition home or self-care (01) | LOC: SLEEP 16:00 | PROVIDERS: PCP Family Medicine; Visit Provider Specialist | DX: G47.36 Sleep related hypoventilation in conditions classified elsewhere (principal) | CPT/HCPCS: G0399 ==

== ENCOUNTER → 2024-03-11 14:08 | Outpatient (BNVA) | payer MEDICAID, SELFPAY | PROVIDERS: PCP Nurse Practitioner Family; Visit Provider Nurse Practitioner Family | DX: M25.561 Pain in right knee (principal); W19.XXXA Unspecified fall, initial encounter | CPT/HCPCS: 73562 ==

== ENCOUNTER → 2024-03-13 14:28 | Outpatient (BNVA) | payer MEDICAID, SELFPAY | PROVIDERS: PCP Nurse Practitioner Family; Visit Provider Podiatrist Foot & Ankle Surgery | DX: L60.3 Nail dystrophy (principal) | CPT/HCPCS: 99203 ==

== ENCOUNTER → 2024-03-15 14:20 | Outpatient (BNVA) | payer MEDICAID, SELFPAY | PROVIDERS: PCP Nurse Practitioner Family; Visit Provider Specialist | DX: G43.711 Chronic migraine without aura, intractable, with status migrainosus (principal); M25.50 Pain in unspecified joint; I25.10 Atherosclerotic heart disease of native coronary artery without angina pectoris; W19.XXXA Unspecified fall, initial encounter; Y92.009 Unspecified place in unspecified non-institutional (private) residence as the place of occurrence of the external cause; J20.9 Acute bronchitis, unspecified; J21.9 Acute bronchiolitis, unspecified; R29.6 Repeated falls; F44.5 Conversion disorder with seizures or convulsions; G47.10 Hypersomnia, unspecified; X58.XXXA Exposure to other specified factors, initial encounter | CPT/HCPCS: 36415; 64615; 80053; 84439; 84443; 85025; 85651; 86160; 86162; 86235; 86255; 86376; 99213; J0585 ==

== ENCOUNTER → 2024-04-17 14:01 | Outpatient (BNVA) | payer MEDICAID, SELFPAY | PROVIDERS: PCP Nurse Practitioner Family; Visit Provider Podiatrist Foot & Ankle Surgery | DX: L60.3 Nail dystrophy (principal) | CPT/HCPCS: 99213 ==

== ENCOUNTER → 2024-05-21 15:13 | Outpatient (BNVA) | payer OTHER, SELFPAY | PROVIDERS: PCP Nurse Practitioner Family; Visit Provider Psychiatry & Neurology Psychiatry | DX: F41.9 Anxiety disorder, unspecified (principal) | CPT/HCPCS: 80061; 83036 ==

== ENCOUNTER → 2024-06-14 14:23 | Outpatient (BNVA) | payer MEDICAID, SELFPAY ==
[2024-05-23 13:32] VITALS: BP 131/89; BMI 34.0
== END ==
PROVIDERS: PCP Nurse Practitioner Family; Visit Provider Specialist
DX: G43.711 Chronic migraine without aura, intractable, with status migrainosus (principal)
CPT/HCPCS: 64615; J0585; J9999

== ENCOUNTER → 2024-07-01 09:12 | Outpatient (BNVA) | payer SELFPAY ==
[2024-05-23 13:32] VITALS: BP 131/89; BMI 34.0
== END ==
PROVIDERS: PCP Nurse Practitioner Family; Visit Provider Nurse Practitioner
DX: K52.9 Noninfective gastroenteritis and colitis, unspecified (principal); N92.0 Excessive and frequent menstruation with regular cycle
CPT/HCPCS: 85025

== ENCOUNTER → 2024-08-12 13:01 | Outpatient (BNVA) | payer MEDICAID, SELFPAY ==
[2024-05-23 13:32] VITALS: BP 131/89; BMI 34.0
== END ==
PROVIDERS: PCP Family Medicine; Visit Provider Internal Medicine
DX: R06.01 Orthopnea (principal); R07.9 Chest pain, unspecified; R06.02 Shortness of breath; I10 Essential (primary) hypertension; F17.290 Nicotine dependence, other tobacco product, uncomplicated
CPT/HCPCS: 99213

== ENCOUNTER → 2024-09-20 14:43 | Outpatient (BNVA) | payer MEDICAID, SELFPAY ==
[2024-05-23 13:32] VITALS: BP 131/89; BMI 34.0
== END ==
PROVIDERS: PCP Family Medicine; Visit Provider Specialist
DX: G43.711 Chronic migraine without aura, intractable, with status migrainosus (principal)
CPT/HCPCS: 64615; 99212; J0585; J9999

== ENCOUNTER 2024-09-21 16:16 | Inpatient (IN) | payer MEDICAID, SELFPAY ==
[2024-05-23 13:32] VITALS: BP 131/89; BMI 34.0
--- OUTSIDE RECORDS SUMMARY | 2024-09-21 16:21 | XMS_ITS | Patient Health Record ---
Author Organization [facility] Address [address] [place] [address] Care Team Providers Care General Education Instructor Name Role Phone Nyla Sanders Primary Care Provider Unavailab Mary Recinos Unavailable [phone] Citlaly Stevens Unavailable Unavailable Migration, Provider Unavailable Unavailable Julito Da Silva Unavailable [phone] Sha Llanes Unavailable [phone] Allergies Allergen (clinical drug ingredient) Drug/Non Drug Allergy documented on EMR Reaction Allergy Type Onset Date Status BLUEBERRY (uncoded) Unknown Allergy Active Eggs (uncoded) Unknown Allergy Activ e Blueberry Flavor Unknown Drug Allergy Active Adhesive Unknown Allergy Active Eggs or Egg-derived Products Unknown Drug Allergy Active Latex Latex Unknown Allergy Active Results Component Value Reference Range Notes zzzUrine Drug Screen (confir mation by instrument) - [id number] Reviewed date:05/07/2024 01:22:42 PM Interpretation: Performing Lab: Notes/Report: Fluoro Needle For Placement - Spine 30501 Reviewed date:02/26/2024 08:30:56 AM Interpretation: Performing Lab: Notes/Report: Urine Confirmation Panel (in strument) - [id number] Reviewed date:09/04/2024 02:55:00 PM Interpretation: Performing Lab: Notes/Report: 6-Acetylmorphine 0 <6 ng/mL This test w as developed and its performance characteristics determined by [facility]. It has not been cleared or approved by the U.S. Food and Drug Administration. 7-Aminoclonazepam 0 <60 ng/mL This test was developed and its performance characteristics determined by [facility]. It has not been cleared or approved by the U.S. Food and Drug Administration. Alprazolam 0 <60 ng/mL This test was d eveloped and its performance characteristics determined by [facility]. It has not been cleared or approved by the U.S. Food and Drug Administration. Amphetamine 0 <75 ng/mL This test was d eveloped and its performance characteristics determined by [facility]. It has not been cleared or approved by the U.S. Food and Drug Administration. aOH-Alprazolam 0 <60 ng/mL This test was developed and its performance characteristics determined by [facility]. It has not been cleared or approved by the U.S. Food and Drug Administration. Buprenorphine 0.0 <7.5 ng/mL This test was developed and its performance characteristics determined by [facility]. It has not been cleared or approved by the U.S. Food and Drug Administration. Norbuprenorphine 0.0 <37.5 ng/mL This test w as developed and its performance characteristics determined by [facility]. It has not been cleared or approved by the U.S. Food and Drug Administration. Carisoprodol 0 <75 ng/mL This test was d eveloped and its performance characteristics determined by [facility]. It has not been cleared or approved by the U.S. Food and Drug Administration. Codeine 0 <75 ng/mL This test was d eveloped and its performance characteristics determined by [facility]. It has not been cleared or approved by the U.S. Food and Drug Administration. EDDP 0 <75 ng/mL This test was d eveloped and its performance characteristics determined by [facility]. It has not been cleared or approved by the U.S. Food and Drug Administration. Fentanyl 0 <6 ng/mL This test was d eveloped and its performance characteristics determined by [facility]. It has not been cleared or approved by the U.S. Food and Drug Administration. Hydrocodone >5000 <75 ng/mL This test was d eveloped and its performance characteristics determined by [facility]. It has not been cleared or approved by the U.S. Food and Drug Administration. Hydromorphone 414 <75 ng/mL This test was developed and its performance characteristics determined by [facility]. It has not been cleared or approved by the U.S. Food and Drug Administration. Lorazepam 0 <60 ng/mL This test was d eveloped and its performance characteristics determined by [facility]. It has not been cleared or approved by the U.S. Food and Drug Administration. MDMA 0 <75 ng/mL This test was d eveloped and its performance characteristics determined by [facility]. It has not been cleared or approved by the U.S. Food and Drug Administration. Meperidine 0.0 <37.5 ng/mL This test was d eveloped and its performance characteristics determined by [facility]. It has not been cleared or approved by the U.S. Food and Drug Administration. Meprobamate 0 <75 ng/mL This test was d eveloped and its performance characteristics determined by [facility]. It has not been cleared or approved by the U.S. Food and Drug Administration. Methamphetamine 29 <75 ng/mL This test wa s developed and its performance characteristics determined by [facility]. It has not been cleared or approved by the U.S. Food and Drug Administration. Methadone 17 <75 ng/mL This test was d eveloped and its performance characteristics determined by [facility]. It has not been cleared or approved by the U.S. Food and Drug Administration. Morphine 0 <75 ng/mL This test was d eveloped and its performance characteristics determined by [facility]. It has not been cleared or approved by the U.S. Food and Drug Administration. Nordiazepam 0 <60 ng/mL This test was d eveloped and its performance characteristics determined by [facility]. It has not been cleared or approved by the U.S. Food and Drug Administration. Norfentanyl 0 <6 ng/mL This test was d eveloped and its performance characteristics determined by [facility]. It has not been cleared or approved by the U.S. Food and Drug Administration. Normeperidine 0.0 <37.5 ng/mL This test was developed and its performance characteristics determined by [facility]. It has not been cleared or approved by the U.S. Food and Drug Administration. O-desmethyltramadol 0 <75 ng/mL This raymond t was developed and its performance characteristics determined by [facility]. It has not been cleared or approved by the U.S. Food and Drug Administration. Oxazepam 0 <60 ng/mL This test was d eveloped and its performance characteristics determined by [facility]. It has not been cleared or approved by the U.S. Food and Drug Administration. Oxycodone 10.1 <37.5 ng/mL This test was d eveloped and its performance characteristics determined by [facility]. It has not been cleared or approved by the U.S. Food and Drug Administration. Oxymorphone 0 <75 ng/mL This test was d eveloped and its performance characteristics determined by [facility]. It has not been cleared or approved by the U.S. Food and Drug Administration. Phencyclidine 0.0 <7.5 ng/mL This test was developed and its performance characteristics determined by [facility]. It has not been cleared or approved by the U.S. Food and Drug Administration. Tapentadol 0.0 <37.5 ng/mL This test was d eveloped and its performance characteristics determined by [facility]. It has not been cleared or approved by the U.S. Food and Drug Administration. Temazepam 0 <60 ng/mL This test was d eveloped and its performance characteristics determined by [facility]. It has not been cleared or approved by the U.S. Food and Drug Administration. Tramadol 0 <75 ng/mL This test was d eveloped and its performance characteristics determined by [facility]. It has not been cleared or approved by the U.S. Food and Drug Administration. Norhydrocodone >5000 <75 ng/mL This test was developed and its performance characteristics determined by [facility]. It has not been cleared or approved by the U.S. Food and Drug Administration. Noroxycodone 0 <38 ng/mL This test was d eveloped and its performance characteristics determined by [facility]. It has not been cleared or approved by the U.S. Food and Drug Administration. Pregabalin 0 <225 ng/mL This test was d eveloped and its performance characteristics determined by [facility]. It has not been cleared or approved by the U.S. Food and Drug Administration. Gabapentin >24851 <225 ng/mL This test was d eveloped and its performance characteristics determined by [facility]. It has not been cleared or approved by the U.S. Food and Drug Administration. Benzoylecgonine 0.0 <37.5 ng/mL This test wa s developed and its performance characteristics determined by [facility]. It has not been cleared or approved by the U.S. Food and Drug Administration. 4-Hydroxy Xylazine 0 <25 ng/mL This test was developed and its performance characteristics determined by [facility]. It has not been cleared or approved by the U.S. Food and Drug Administration. Urine Drug Screen (cup read) - 52047 Reviewed date:08/29/2024 03:42:33 PM Interpretation: Performing Lab: Notes/Report: OPI Pos Urine Drug Screen (cup read) - 08001 Reviewed date:07/04/2024 04:31:49 PM Interpretation: Performing Lab: Notes/Report: OPI + Tox Results Reviewed date:09/04/2024 02:59:26 PM Interpretation: Performing Lab: Notes/Report: Knee Min 3V Right-[id number] Reviewed date:03/25/2024 04:03:26 PM Interpretation: Performing Lab: Notes/Report: uek=[id number]&org=iSite Knee Min 3V Right-[id number] Reviewed date:04/01/2024 08:47:16 AM Interpretation: Performing Lab: Notes/Report: The report for this exam was dictated at [facility] . FINAL REPORT Read The report for this exam was dictated at [facility] . Reason For Referral No Information Medications Medication SIG (Take, Route, Frequency, Duration) Notes Start Date End Date Status Propranolol HCl Acti ve Propranolol *Reorder from [facility] for eRx and Interaction Alerts* Active Nurtec Active Methocarbamol *Pick strength-form from [facility] for eRX* Active Aspirin Active traZODone HCl Active amLODIPine Besylate Active tiZANidine HCl Activ e Albuterol Sulfate Ac tive Symbicort Active Ajovy Active Ramipril Active Fluoxetine Active DULoxetine HCl Activ e diazePAM 5 MG 1 tablet 30 mins prior to Imaging Orally Once a day for 1 days 05/30/2022 Active Buspirone *Reorder from [facility] for eRx and Interaction Alerts* Active Vitamin D2 Active HYDROcodone-Acetamino phen 7.5-325 MG 1 tablet Orally every 8 hrs for 30 days As needed Do not exceed 3 per day Fill on 10-02-24 08/29/2024 11/01/2024 Active HYDROcodone-Acetamino phen 7.5-325 MG 1 tablet Orally every 8 hrs for 30 days As needed Do not exceed 3 per day Fill on 09-02-24 08/29/2024 10/02/2024 Active Gabapentin *[facility]* Active Gabapentin Active Fluticasone Propionate Active hydrOXYzine HCl *Pick strength-form from [facility] for eRX* Active hydrOXYzine HCl Acti ve HYDROcodone-Acetamino phen Active LORazepam 1 MG 1 tablet Orally Once for 1 days As needed Take one hour prior to procedure Fill 06/18/2024 for upcoming procedure 06/18/2024 Active levETIRAcetam Active Isosorbide Mononitrate Active Social History xTobacco Use/Smoking Question Answer Notes Are you a current every day smoker Alcohol Screen (Audit-C) Question Answer Notes Did you have a drink containing alcohol in the p ast year? No Points 0 Interpretation Negative Problems Problem Type SNOMED Code ICD Code Onset Dates Problem Status W/U Status Risk Notes Problem Epilepsy (41416098) Epilepsy, unspecified, not intractable, without status epilepticus (G40.909) 08/30/19 24 Active confirmed Problem Chronic pain syndrome (576053034) Chronic pain syndrome (G89.4) 08/30/19 24 Active confirmed Problem Lumbosacral spondylosis without myelopathy (17215705) Other spondylosis with radiculopathy, lumbosacral region (M47.27) 08/30/19 24 Active confirmed Problem Lumbosacral spondylosis without myelopathy (disorder) (42884840) Spondylosis without myelopathy or radiculopathy, lumbosacral region (M47.817) 08/30/19 24 Active confirmed Problem Post-laminectomy syndrome (94347602) Postlaminectomy syndrome, not elsewhere classified (M96.1) 08/30/19 24 Active confirmed Problem Abnormal gait (99640791) Unspecified abnormalities of gait and mobility (R26.9) 08/30/19 24 Active confirmed Problem Cervical radiculopathy (13907845) Acute cervical radiculopathy (M54.12) Active confirmed Problem Lumbosacral radiculopathy (8478251) L-S radiculopathy (M54.17) Active confirmed Vital Signs Heart Rate 86 /min 03/25/2024 Blood pressure diastolic 74 mm Hg 03/25/2024 Oximetry 91 % 03/25/2024 Height-cm 157.48 cm 08/29/2024 Height 62.00 in 08/29/2024 Blood pressure systolic 134 mm Hg 03/25/2024 Procedures Procedure Date Ordered Date Performed Result Body Sit e Epidural, Cervical/ Thoracic , w/ imaging guidance - 14390 02/13/2024 02/13/2024 N/A Neurotomy Lumbar/Sacral, 2 o r more levels - 18609, 89317 06/06/2024 06/06/2024 N/A Neurotomy Lumbar/Sacral, 2 o r more levels - 54781, 75179 06/20/2024 06/20/2024 N/A Encounters Encounter Location Date Provider Diagnosis Migrated_Facility 0 0 01/20/2024 Provider Migration Migrated_Facility 0 0 01/21/2024 Provider Migration [facility] [place] [address] [place] [address] 02/09/2024 Sha Falconlatesha [facility] [place] [address] [place] [phone] 02/12/2024 Sha [facility] [address] [place] [address] 02/12/2024 Sha Llanes Cervical radiculopathy M54.12 [facility] [address] [place] [address] 03/07/2024 Sha Falconlatesha [facility] [place] [address] [place] [address] 04/18/2024 Sha Falconlatesha [facility] [place] [address] [place] [address] 05/29/2024 Sha Llanes L-S radiculopathy M54.17 [facility] [place] [address] [place] [address] 06/18/2024 Sha Llanes L-S radiculopathy M54.17 [facility] [place] [address] [facility] [place] [address] 07/04/2024 Sha Llanes Postlaminectomy syndrome, not elsewhere classified M96.1 [facility] [place] [address] [place] [address] 08/29/2024 Sha Llanes Postlaminectomy syndrome, not elsewhere classified M96.1 [facility] [place] [address] [place] [address] 11/02/2023 Mary Acuna [facility] [place] [address] [place] [address] 01/04/2024 Mary Acuna [facility] [place] [address] [place] [address] 03/07/2024 Mary Acuna Chronic pain syndrom e G89.4 ; Pain in thoracic spine M54.6 ; Other spondylosis with radiculopathy, lumbosacral region M47.27 ; Postlaminectomy syndrome, not elsewhere classified M96.1 ; Unspecified abnormalities of gait and mobility R26.9 and alf (current) use of opiate analgesic Z79.891 [facility] [address] [place] [address] 03/25/2024 Julito Da Silva Acute pain of right knee M25.561 ; Status post fall Z91.81 and Contusion of right knee, initial encounter S80.01XA [facility] [place] [address] [place] [address] 05/01/2024 Sha Llanes Epilepsy, unspecified, not intractable, without status epilepticus G40.909 ; Chronic pain syndrome G89.4 ; Pain in thoracic spine M54.6 ; L-S radiculopathy M54.17 ; Spondylosis without myelopathy or radiculopathy, lumbosacral region M47.817 ; Postlaminectomy syndrome, not elsewhere classified M96.1 ; Unspecified abnormalities of gait and mobility R26.9 and alf (current) use of opiate analgesic Z79.891 [facility] [address] [address] 07/04/2024 Mary Acuna Chronic pain syndrom e G89.4 ; Epilepsy, unspecified, not intractable, without status epilepticus G40.909 ; Pain in thoracic spine M54.6 ; L-S radiculopathy M54.17 ; Postlaminectomy syndrome, not elsewhere classified M96.1 ; Unspecified injury of unspecified lower leg, subsequent encounter S89.90XD ; Unspecified abnormalities of gait and mobility R26.9 ; Other instability, unspecified knee M25.369 ; Other spondylosis with radiculopathy, lumbosacral region M47.27 ; Tobacco use Z72.0 ; alf (current) use of opiate analgesic Z79.891 ; Spondylosis without myelopathy or radiculopathy, lumbosacral region M47.817 and Unspecified injury of unspecified lower leg, initial encounter S89.90XA [facility] [address] [address] 08/29/2024 Mary Acuna Chronic pain syndrom e G89.4 ; Pain in thoracic spine M54.6 ; L-S radiculopathy M54.17 ; Postlaminectomy syndrome, not elsewhere classified M96.1 ; Unspecified injury of unspecified lower leg, subsequent encounter S89.90XD ; Unspecified abnormalities of gait and mobility R26.9 ; Epilepsy, unspecified, not intractable, without status epilepticus G40.909 ; Other instability, unspecified knee M25.369 ; Other spondylosis with radiculopathy, lumbosacral region M47.27 ; Tobacco use Z72.0 ; alf (current) use of opiate analgesic Z79.891 ; Spondylosis without myelopathy or radiculopathy, lumbosacral region M47.817 and Unspecified injury of unspecified lower leg, initial encounter S89.90XA [facility] [address] [place] [address] 02/13/2024 Sha Llanes Acute cervical radiculopathy M54.12 [facility] [address] [place] [address] 06/06/2024 Sha Llanes Spondylosis without myelopathy or radiculopathy, lumbosacral region M47.817 [facility] [address] [place] [address] 06/20/2024 Sha Llanes Spondylosis without myelopathy or radiculopathy, lumbosacral region M47.817 Assessments Encounter Date Diagnosis (ICD Code) Assessment Notes Treatment Notes Treatment Clinical Notes Section Notes 07/04/2024 Postlaminectomy syndrome, not elsewhere classified (ICD-10 - M96.1) 08/29/2024 Pain in thoracic spine (ICD-10 - M54.6) 06/06/2024 Spondylosis without myelopathy or radiculopathy, lumbosacral region (ICD-10 - M47.817) 06/18/2024 L-S radiculopathy (ICD-10 - M54.17) 07/04/2024 Epilepsy, unspecified, not intractable, without status epilepticus (ICD-10 - G40.909) 07/04/2024 Chronic pain syndrome (ICD-10 - G89.4) I had a nice discussion with the patient today regarding her chronic pain complaints. She states she is doing pretty well after her lumbar rhizotomies and feels its helped relieve her pain at least 50%. She also reports she is helping out at an animal assisted and is really enjoying this. She just adopted a new dog. She is doing well on her current medication regimen so she will continue that at present level. She denies any changes in her health since we last seen her any untoward side effects of the medication. She will return to clinic in 2 months to monitor for treatment effectiveness and compliance. The patient continues with chronic pain requiring treatment to help restore function and improve quality of life. Risks of opioid therapy as well as interaction of opioids with alcohol, illicit drugs, muscle relaxers, and other sedative medications are reviewed briefly with patient again today. The patient has trialed all other reasonable treatment options and uses the medication to alleviate pain in order to remain active and rest with less pain. No clinically relevant medication side effects are noted. Last UDS and [place] CHROME TANNER reviewed today. Patient is advised that best long-term goals include increased activity, core strengthening, proper weight management, coping strategies, avoidance of painful triggers, and targeted interventional therapy. We will see the patient for routine follow up in accordance with all clinic policies. We did remind patient today of current guidelines to decrease opioid when possible. We will continue to stress nonopioid treatment. URINE TESTING TODAY; POINT OF SERVICE Urine drug screening will be performed today to monitor compliance with opioid therapy or to serve as a baseline screen for a patient who may be a candidate for opioid therapy in the future, pending UDS results. We will monitor with in-office testing (rapid testing) today and review the results prior to dispensing prescription, as well. Patient has been made aware of this policy. Refill HYDROcodone- Acetaminophe n Tablet, 7.5-325 MG, 1 tablet, Orally, every 8 hrs, As needed Do not exceed 3 per day, 30 days, 90 Tablet, Start Date: 07/05/2024, Stop Date: 08/04/2024, Refills 0, Notes to Pharmacist: Fill on 07/05/24 Refill HYDROcodone- Acetaminophe n Tablet, 7.5-325 MG, 1 tablet, Orally, every 8 hrs, As needed Do not exceed 3 per day, 30 days, 90 Tablet, Start Date: 08/03/2024, Stop Date: 09/02/2024, Refills 0, Notes to Pharmacist: Fill on 08/03/24 due to Monday closure 08/29/2024 Chronic pain syndrome (ICD-10 - G89.4) I had a nice discussion with the patient today regarding her chronic pain complaints. She feels she is doing pretty well with her lower back pain right now. She does state that she slipped the other day and twisted her ankle. She states she is able to walk on it and it does not appear to be swollen. She is using ice and ibuprofen. She also reports for about a week she has been having some pain in her left hand and wrist. She states this started out of nowhere and she does not recall any triggering event. She is wearing a brace on it right now and feels that is helping. She will continue using ice and ibuprofen for this as well. She defers any imaging right now. She is excited as she 1 $2000 the other day on a game on her phone. She denies any other changes since we last seen her any untoward side effects of the medication. She will continue her medication at present level and return to clinic in 2 months to monitor for treatment effectiveness and compliance. The patient continues with chronic pain requiring treatment to help restore function and improve quality of life. Risks of opioid therapy as well as interaction of opioids with alcohol, illicit drugs, muscle relaxers, and other sedative medications are reviewed briefly with patient again today. The patient has trialed all other reasonable treatment options and uses the medication to alleviate pain in order to remain active and rest with less pain. No clinically relevant medication side effects are noted. Last UDS and [place] CHROME TANNER reviewed today. Patient is advised that best long-term goals include increased activity, core strengthening, proper weight management, coping strategies, avoidance of painful triggers, and targeted interventional therapy. We will see the patient for routine follow up in accordance with all clinic policies. We did remind patient today of current guidelines to decrease opioid when possible. We will continue to stress nonopioid treatment. Refill HYDROcodone- Acetaminophe n Tablet, 7.5-325 MG, 1 tablet, Orally, every 8 hrs, As needed Do not exceed 3 per day, 30 days, 90 Tablet, Start Date: 07/05/2024, Stop Date: 08/04/2024, Refills 0, Notes to Pharmacist: Fill on 07/05/24 Refill HYDROcodone- Acetaminophe n Tablet, 7.5-325 MG, 1 tablet, Orally, every 8 hrs, As needed Do not exceed 3 per day, 30 days, 90 Tablet, Start Date: 08/03/2024, Stop Date: 09/02/2024, Refills 0, Notes to Pharmacist: Fill on 08/03/24 due to Monday closure 08/29/2024 Postlaminectomy syndrome, not elsewhere classified (ICD-10 - M96.1) 06/20/2024 Spondylosis without myelopathy or radiculopathy, lumbosacral region (ICD-10 - M47.817) 03/07/2024 Pain in thoracic spine (ICD-10 - M54.6) 03/25/2024 Acute pain of right knee (ICD-10 - M25.561) I see nothing structurally wrong with Cleopatras knee. I think additional meniscal tearing to be unlikely with a direct anterior below. I think her greatest need is physical therapy to improve motion and strength. Unfortunately this is not covered by Medicaid. I instructed her to try to get a stationary bike or some formal home exercise and work on strengthening. She currently is receiving pain management from Dr. Llanes and I think further increases in pain medicine are not required. 03/25/2024 Status post fall (ICD-10 - Z91.81) I see nothing structurally wrong with Mary's knee. I think additional meniscal tearing to be unlikely with a direct anterior below. I think her greatest need is physical therapy to improve motion and strength. Unfortunately this is not covered by Medicaid. I instructed her to try to get a stationary bike or some formal home exercise and work on strengthening. She currently is receiving pain management from Dr. Llanes and I think further increases in pain medicine are not required. 05/01/2024 Epilepsy, unspecified, not intractable, without status epilepticus (ICD-10 - G40.909) 05/01/2024 Chronic pain syndrome (ICD-10 - G89.4) I had a nice visit with the patient today regarding her chronic pain issues. She has been having some thoracic pain but she does feel like the lumbar pain is returning. She is interested in repeating her lumbar rhizotomies so we will get those scheduled in the near future. We will continue her medications unchanged and hope to see her soon for the rhizotomies. Schedule repeat LMBRs 02/12/2024 Cervical radiculopathy (ICD-10 - M54.12) 02/13/2024 Acute cervical radiculopathy (ICD-10 - M54.12) 03/07/2024 Chronic pain syndrome (ICD-10 - G89.4) I had a nice discussion with the patient today regarding her chronic pain complaints. She status post FIONA which she reports helped relieve her pain at least 50%. However, she continues to have a lot of lower back and neck pain. She also reports that she fell at her house out the door and hurt her right knee. She states she is going for x-rays on Monday of her knee. She feels like her medication is lacking in duration. After a long discussion, I will trial her on an increase of her hydrocodone 7.5/325 to 90/month. She denies any other changes since we last seen her any untoward side effects of the medication. She will return to clinic in 2 months to monitor for treatment effectiveness and compliance as well as for biannual appointment with Dr. Llanes. 03/07/2024 Other spondylosis with radiculopathy, lumbosacral region (ICD-10 - M47.27) 05/01/2024 Pain in thoracic spine (ICD-10 - M54.6) 03/25/2024 Contusion of right knee, initial encounter (ICD-10 - S80.01XA) I see nothing structurally wrong with Mary's knee. I think additional meniscal tearing to be unlikely with a direct anterior below. I think her greatest need is physical therapy to improve motion and strength. Unfortunately this is not covered by Medicaid. I instructed her to try to get a stationary bike or some formal home exercise and work on strengthening. She currently is receiving pain management from Dr. Llanes and I think further increases in pain medicine are not required. 05/29/2024 L-S radiculopathy (ICD-10 - M54.17) 07/04/2024 Pain in thoracic spine (ICD-10 - M54.6) 08/29/2024 L-S radiculopathy (ICD-10 - M54.17) 08/29/2024 Postlaminectomy syndrome, not elsewhere classified (ICD-10 - M96.1) 07/04/2024 L-S radiculopathy (ICD-10 - M54.17) 05/01/2024 L-S radiculopathy (ICD-10 - M54.17) 03/07/2024 Postlaminectomy syndrome, not elsewhere classified (ICD-10 - M96.1) 03/07/2024 Unspecified abnormalities of gait and mobility (ICD-10 - R26.9) 05/01/2024 Spondylosis without myelopathy or radiculopathy, lumbosacral region (ICD-10 - M47.817) 07/04/2024 Postlaminectomy syndrome, not elsewhere classified (ICD-10 - M96.1) 08/29/2024 Unspecified injury of unspecified lower leg, subsequent encounter (ICD-10 - S89.90XD) 08/29/2024 Unspecified abnormalities of gait and mobility (ICD-10 - R26.9) 07/04/2024 Unspecified injury of unspecified lower leg, subsequent encounter (ICD-10 - S89.90XD) 03/07/2024 alf (current) use of opiate analgesic (ICD-10 - Z79.891) 05/01/2024 Postlaminectomy syndrome, not elsewhere classified (ICD-10 - M96.1) 05/01/2024 Unspecified abnormalities of gait and mobility (ICD-10 - R26.9) 07/04/2024 Unspecified abnormalities of gait and mobility (ICD-10 - R26.9) 08/29/2024 Epilepsy, unspecified, not intractable, without status epilepticus (ICD-10 - G40.909) 07/04/2024 Other instability, unspecified knee (ICD-10 - M25.369) 08/29/2024 Other instability, unspecified knee (ICD-10 - M25.369) 05/01/2024 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 We will monitor with in-office testing (rapid testing) today and review the results prior to dispensing prescription. All positive results will be sent for quantitative analysis to ensure accuracy and quantify amounts. Any expected positive results that return negative will also be sent for quantitative analysis. Any questionable read or any medication we cannot test for in the office confidently will be sent for quantitative analysis, as well. Patient has been made aware of this policy and agrees to abide by our urine testing policy. 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 We will monitor with in-office testing (rapid testing) today and review the results prior to dispensing prescription. All positive results will be sent for quantitative analysis to ensure accuracy and quantify amounts. Any expected positive results that return negative will also be sent for quantitative analysis. Any questionable read or any medication we cannot test for in the office confidently will be sent for quantitative analysis, as well. Patient has been made aware of this policy and agrees to abide by our urine testing policy. 07/04/2024 lobsterman (current) use of opiate analgesic (ICD-10 - Z79.891) 08/29/2024 Spondylosis without myelopathy or radiculopathy, lumbosacral region (ICD-10 - M47.817) 07/04/2024 Spondylosis without myelopathy or radiculopathy, lumbosacral region (ICD-10 - M47.817) 07/04/2024 Unspecified injury of unspecified lower leg, initial encounter (ICD-10 - S89.90XA) 08/29/2024 Unspecified injury of unspecified lower leg, initial encounter (ICD-10 - S89.90XA) 05/01/2024 Other RECOMMEND REPEAT FACET MEDIAL BRANCH RHIZOTOMY, AT ___ LEVELS Repeat facet medial branch nerve rhizotomies are being recommended. The patient has pain of well-documented facet joint origin as evidenced by successful response to previous medial branch rhizotomies at ____ levels on MONTH/DAY/YEAR (RT/LT) and MONTH/DAY/YEAR (RT/LT) with __% relief for __ months or greater as criterion standard. Patient experienced 50% or greater improvement in ability to perform previously painful movement without deterioration of the relief, as mentioned in previous records, compared to a baseline functional disability of __% prior to rhizotomies. We will now proceed with facet rhizotomy using continuous radiofrequency denervation at a temperature of 90 degrees Celsius for 60 seconds. The procedure and risks were discussed with the patient including but not limited to infection, bleeding, neurological complications, side effects from medications, no change in pain, worsening of pain, or even . We also discussed conservative options, surgical options, and medical management with patient as well. The patient indicates understanding and wishes to proceed with the recommended treatment approach. The patient was given written information about the procedure and all questions were answered. IHima, am scribing for Dr. Sha Llanes. I, Dr. Sha Llanes, personally performed the services described in this documentatio n, as scribed by Hima Valdovinos, and it is both accurate and complete. Plan Of Treatment Pending Test Test Name Order Date Knee 3V 03/25/2024 Prothrombin Time 65989 06/28/2022 Prothrombin Time 06798 07/06/2022 ABORh 53388, 75819 06/28/2022 ABORh 85400, 28522 07/06/2022 Antibody Screen 88427 07/06/2022 Antibody Screen 92679 06/28/2022 Basic Metabolic Panel (BMP) 18485 2022 Basic Metabolic Panel (BMP) 32620 2022 Basic Metabolic Panel (BMP) 05579 2022 CBC w\ Auto Diff 78823 06/28/2022 CBC w\ Auto Diff 57633 07/06/2022 Partial Thromboplastin Time 35467 2022 Partial Thromboplastin Time 97332 2022 Sedimentation Rate 55156 06/21/2022 CBC Reflex Man Diff 74703, 93496 023 CBC Reflex Man Diff 15507, 84828 023 CRP 72440 06/21/2022 Chest PA/Lat-03432 06/28/2022 Chest PA/Lat-58310 07/06/2022 CT L-Spine w/o Contrast incl Recon-15301 06/03/2022 CT L-Spine w/o Contrast incl Recon-21991 05/24/2022 Electrocardiogram 12 Lead Tracing-85261 06/28/2022 Electrocardiogram 12 Lead Tracing-72676 06/21/2023 WBC Auto Diff--12612 07/13/2022 WBC Auto Diff--51619 07/13/2022 BB ABORH-58591,17922 07/06/2022 Next Appt Details Provider Name:Sha Llanes, 10/30/2024 08:20:00 AM, [address] [place], [address], Insurance Providers Payer Name Payer Address Payer Phone Subscriber Number Group Number Insured Name Patient Relationship to Insured Coverage Start Date Coverage End Date [place] Medicaid [address] [place] [address] [phone] [id number] Mary Bernal Self - patient is the insured Medical (General) History Medical History History ICD Code chicken pox whooping cough pneumonia heart disease arthritis bladder infections epilepsy migraine headache back trouble high blood pressure low blood pressure ashtma hives or eczema bronchitis Surgical History Surgery Date(Month/Year) Gallbladder removal tubal gallbladder Back surgery back x2 Hospitalization History Reason Date(Month/Year) see surgical hx
--- OUTSIDE RECORDS SUMMARY | 2024-09-21 16:21 | XMS_ITS | Clinical Summary ---
Author Organization [facility] Address [address] [place] [address] Phone Care Team Providers Care Chef Saucier Name Role Phone Citlaly Stevens MD Primary Care Provider [phone] Allergies Active Allergy Reactions Criticality Noted Date Comments Penicillins Rash Low 11/15/2021 Medications gabapentin (NEURONTIN) 800 mg tablet Take 800 mg by mouth 3 times daily. Active propranoloL (INDERAL) 40 mg tablet Take 40 mg by mouth 3 times daily. Active levETIRAcetam (KEPPRA) 1,000 mg tablet Take by mouth 2 times daily. Active amLODIPine (NORVASC) 2.5 mg tablet Take 2.5 mg by mouth daily. Active ubrogepant (Ubrelvy) 100 mg tablet Take by mouth one time only. Active HYDROcodone-luis taminophen 7.5-300 mg Tablet Take by mouth. Activ e ISOSORBIDE DINITRATE ORAL Take by mouth. Active fremanezumab-vf rm (Ajovy Autoinjector) 225 mg/1.5 mL Auto-Injector Inject by subcutaneous injection. Active hydrOXYzine HCL (ATARAX) 50 mg tablet Take 50 mg by mouth 3 times daily as needed for Itching. Active methocarbamoL (ROBAXIN) 750 mg tablet Take 750 mg by mouth 4 times daily. Active ramipriL (ALTACE) 5 mg capsule Take 5 mg by mouth daily. Active Social History Tobacco Use Types Packs/Day Years Used Date Smoking Tobacco: Unknown Tobacco Cessation:Counseling Given: Not Answered Comments Unknown Sex and Gender Information Value Date Recorded Sex Assigned at Not on file Legal Sex Female 12:02 PM CDT Gender Identity Not on file Sexual Orientation Not on file Last Filed Vital Signs Vital Sign Reading Time Taken Comments Blood Pressure 111/92 11/15/2021 1:00 PM CDT Pulse 75 11/15/2021 1:00 PM CDT Temperature 36.4 C (97.6 F) 11/15/2021 12:08 PM CDT Respiratory Rate 18 11/15/2021 12:08 PM CDT Oxygen Saturation 98% 11/15/2021 1:00 PM CDT Inhaled Oxygen Concentration - - Weight 92.4 kg (203 lb 9.6 oz) 11/15/2021 12:08 PM CDT Height 157.5 cm (5' 2 ) 11/15/2021 12:08 PM CDT Body Mass Index 37.24 11/15/2021 12:08 PM CDT Plan of Treatment Health Maintenance Due Date Last Done Comments DTAP/TDAP/TD VACCINES (1 - Tdap) 08/26/2003 HEPATITIS B VACCINES (1 of 3 - 19+ 3-dose series) 08/26/2003 HPV/Cotest (21-29) 2005 CERVICAL CANCER SCREENING 2014 HPV/Cotest (30-65) 2014 PAP SMEAR 2014 INFLUENZA VACCINE (#1) 2023 BREAST CANCER SCREENING 2024 HPV VACCINES Aged Out No longer eligi ble based on patient's age to complete this topic Insurance [place]ICAID [place] Care Teams Chef Saucier Relationship Specialty Start Date End Date Citlaly Stevens MD [address] [phone] PCP - General Family Practice 11/15/21
[2024-09-21 16:30] VITALS: BP 158/94; PULSE 101; RESP 18; TEMP 36.7; O2SAT 95; BMI 32.9
[2024-09-21 17:19] VITALS: BP 158/94; PULSE 105; RESP 17; O2SAT 95
[2024-09-21 17:32] LABS: Basophils % 0.2 %; Eosinophils % 0.2 %; Hematocrit 48.2 % (36-47); Lymphocytes # 1.2 10^3/uL (0.8-4.8); Lymphocytes % 9.6 %; Mean Corpuscular HGB Conc 32.8 g/dL (30-55); Mean Corpuscular Hemoglobin 31.9 pg (27-33); Mean Corpuscular Volume 97.4 fl (85-98); Mean Platelet Volume 8.3 fL (7.4-10.4); Monocytes # 0.2 10^3/uL (0.2-0.9); Monocytes % 1.9 %; Neutrophils # 10.67 10^3/uL (1.8-7.7); Neutrophils % 87.7 %; Nucleated Red Blood Cells % 0 %; Platelet Count 476 10^3/cmm (157-399); Red Blood Count 4.95 10^6/uL (3.85-5.65); Red Cell Distribution Width 12.7 % (12.1-15.1); White Blood Count 12.16 10^3/uL (3.29-11.43)
[2024-09-21] MEDS: metoclopramide 5 mg/mL SDV 2 mL IVP (17:34)
[2024-09-21] MEDS: sodium chloride 0.9% 1,000 ML 999 ML IV (17:34)
--- NOTE | 2024-09-21 17:57 | CTR_ITS ---
PROCEDURE INFORMATION: Exam: CT Abdomen And Pelvis With Contrast Exam date and time: 09/21/2024 6:23 PM Age: 39 years old Clinical indication: Nausea and vomiting; Abdominal pain; Localized; Right; Prior surgery; Surgery date: 6+ months; Surgery type: Gb. Lumbar; RT sided abd pain with n/v/d. ; Additional info: Right side pain, n/v/d TECHNIQUE: Imaging protocol: Computed tomography of the abdomen and pelvis with contrast. Radiation optimization: All CT scans at this facility use at least one of these dose optimization techniques: automated exposure control; mA and/or kV adjustment per patient size (includes targeted exams where dose is matched to clinical indication); or iterative reconstruction. Contrast material: OMNI 350; Contrast volume: 100 ml; Contrast route: INTRAVENOUS (IV); COMPARISON: CT abdomen pelvis wo con [id number] 02/12/2023 4:21 PM RADIATION DOSE METRICS: Total DLP (mGy-cm): 711.63 FINDINGS: Lungs: Incidentally noted mosaic attenuation in the left lung base. Liver: No discrete liver lesions are apparent. Smooth hepatic contour. Gallbladder and biliary ducts: Prior cholecystectomy. Pancreas: No evidence of pancreatitis. No ductal dilation. Spleen: Spleen is within normal limits. Adrenal glands: Adrenal glands are within expected limits. Kidneys and ureters: No renal or ureteral calculi are identified. No hydronephrosis. Stomach and bowel: Mild wall thickening of the gastric antrum suggested. There is hyperemia and slight wall thickening involving the colon and possible mild inflammation of the terminal ileum at the ileocecal bowel. Appendix: No evidence of appendicitis. Intraperitoneal space: No free air. No significant fluid collection. Vasculature: Calcific plaquing of the aorta with no aneurysm. Lymph nodes: No pathologically enlarged lymph nodes by CT size criteria. Urinary bladder: Unremarkable as visualized. Reproductive: Uterus unremarkable. Involuting left ovarian cyst measuring 1.5 cm. Bones/joints: Postsurgical changes at L4-L5 and L5-S1. No acute osseous findings. Soft tissues: Unremarkable. CT/CT abdomen pelvis w con* [id number] IMPRESSION: Findings suggestive of acute enterocolitis.
[2024-09-21 18:01] LABS: HCG, Serum Qual Negative (Negative)
[2024-09-21 18:02] VITALS: BP 169/94; PULSE 87; O2SAT 94
[2024-09-21 18:06] LABS: Bilirubin Urine 1+ (Negative); Blood Urine Negative (Negative); Glucose Urine UA Negative (Normal); Ketones Urine 3+ (Negative); Leukocyte Esterase Urine 2+ (Negative); Nitrate Urine Positive (Negative); Protein Urine 2+ (Negative); Specific Gravity, Urine 1.029 (1.005-1.030); Urine Appearance Cloudy (CLEAR)
[2024-09-21 18:07] LABS: Alanine Aminotransferase 15 U/L (0-33); Albumin Level 5.2 g/dL (3.5-5.2); Alkaline Phosphatase 87 U/L (35-105); Aspartate Amino Transferase 23 U/L (0-32); Blood Urea Nitrogen 13 mg/dL (6-20); Calcium 10.5 mg/dL (8.5-10.5); Carbon Dioxide 21 mmol/L (22-29); Chloride 99 mmol/L (98-107); Globulin 3.8 g/dL (1.3-4.6); Glomerular Filtration Rate 92.7 mL/min (90-130); Glucose 101 mg/dL (65-115); Lipase 37 U/L (13-60); Osmolality Calculated 286 mOsm/kg (285-295); Sodium 138 mmol/L (136-145); Total Bilirubin 0.5 mg/dL (0.15-1.2)
[2024-09-21 18:11] LABS: Add Urine Microscopic? YES; Bacteria Urine 2+ /hpf; Hyaline Casts Urine 1.65 /lpf; RBC Urine 21-50 /hpf (0-2); Squamous Epithelial Cell Urine 21-50 /hpf (0-5)
[2024-09-21 18:13] LABS: Amphetamines Screen Urine Negative (Negative); Barbiturates Screen Urine Negative (Negative); Benzodiazepines Screen Urine Negative (Negative); Cocaine Screen Urine Negative (Negative); Opiate Screen Urine Positive (Negative); PCP Screen Urine Negative (Negative); THC Screen Urine Negative (Negative)
[2024-09-21] MEDS: prochlorperazine 10 mg/2 mL Inj IVP (18:13)
[2024-09-21] MEDS: morphine 4 mg/mL SDV 1 mL IVP (18:13)
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
[2024-09-21 18:20] LABS: Anion Gap 22.5 (5-19); Potassium 4.5 mmol/L (3.5-5.1)
[2024-09-21] MEDS: iohexol 350 mg/mL 500 mL Btl (per mL) IV (18:24)
[2024-09-21 18:26] LABS: Mucus Urine 1+ /hpf; UA Slide Review UA Slide Review Perf; Urine Color Orange (Yellow)
[2024-09-21] MEDS: cefTRIAXone 1,000 mg SDV 1000 MG IVP (19:54)
[2024-09-21 19:55] VITALS: BP 144/95; PULSE 93; RESP 18; O2SAT 94
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
[2024-09-21 20:12] VITALS: BP 111/76; PULSE 91; RESP 16; TEMP 36.7; O2SAT 90
[2024-09-21 20:16] VITALS: BMI 34.1
[2024-09-21] MEDS: ondansetron 2 mg/ML SDV 2 mL 4 MG IVP (20:28)
[2024-09-21] MEDS: lidocaine 2% viscous 15 ML, aluminum-mag hydrox-simethicon 30 ML, sucralfate oral liq 1 GM PO (21:34)
[2024-09-21] MEDS: lactated ringers 1,000 ML 150 ML IV (21:35)
[2024-09-21] MEDS: levETIRAcetam 750 MG in sodium chloride 0.9% (100 ml) 100 ML 430 MG IV (21:36)
[2024-09-21] MEDS: pantoprazole 40 mg SDV IVP (21:36)
[2024-09-21] MEDS: LORazepam 1 MG/0.5 ML injection 0.5 MG IVP (23:27)
[2024-09-22] VITALS (7 sets, daily range): BP systolic 114–146; BP diastolic 74–117; PULSE 69–105; RESP 17–19; TEMP 36.6–37.6; O2SAT 90–96
[2024-09-22] MEDS: prochlorperazine 10 mg/2 mL Inj IVP ×2 (00:41→05:38)
[2024-09-22] MEDS: ondansetron 2 mg/ML SDV 2 mL 4 MG IVP ×5 (02:04→22:09)
[2024-09-22] MEDS: lactated ringers 1,000 ML 150 ML IV ×3 (04:25→21:28)
[2024-09-22] MEDS: ciprofloxacin 400 MG/200 ML PREMIX 200 MG IV (05:39)
[2024-09-22] MEDS: metroNIDAZOLE IV 500 MG/100 ML PREMIX 100 MG IV (06:47)
[2024-09-22] MEDS: pantoprazole 40 mg SDV IVP (08:14)
[2024-09-22] MEDS: LORazepam 1 MG/0.5 ML injection IVP ×2 (08:16→13:06)
[2024-09-22] MEDS: gabapentin 400 mg Capsule 800 MG PO ×2 (08:17→15:38)
[2024-09-22] MEDS: levETIRAcetam 500 mg Tablet PO ×2 (08:17→17:34)
[2024-09-22] MEDS: oxybutynin 5 mg Tablet PO (08:17)
[2024-09-22] MEDS: isosorbide mononitrate ER 30 mg Tablet 15 MG PO (08:18)
[2024-09-22] MEDS: amlodipine 5 mg Tablet 2.5 MG PO (08:18)
[2024-09-22] MEDS: propranolol 20 mg Tablet 40 MG PO ×2 (08:19→17:34)
[2024-09-22] MEDS: HYDROcodone-acetaminophen 7.5-325 mg Tablet 1 TAB PO ×2 (08:29→16:24)
[2024-09-22 09:51] LABS: C.Diff PCR (Lab) POSITIVE (Negative)
[2024-09-22 10:15] LABS: Clostridioides Difficile Toxin NEGATIVE (Negative)
[2024-09-22] MEDS: fidaxomicin 200 mg Tablet PO ×2 (11:44→17:34)
--- NOTE | 2024-09-22 16:35 | P.PN_ITS ---
Subjective 2 Subjective: Overnight labs and H&P reviewed. Patient has had multiple episodes of vomiting today, unable to hold down any oral intake. Medications: Reviewed: Yes Vitals/I&O/Wt Last Vital Signs Temp 98 F 09/22/24 16:34 Pulse 91 09/22/24 16:34 Resp 18 09/22/24 16:34 BP 127/77 09/22/24 16:34 Pulse Ox 90 09/22/24 16:34 O2 Del Method Room Air 09/22/24 11:39 09/22/24 09/22/24 09/22/24 06:59 14:59 22:59 Intake Total 1200 / 2307.5 1460 / 1460 Output Total 500 / 500 Balance 700 / 1807.5 1460 / 1460 Weight last 48 hrs Weight 85.502 kg Weight 84.731 kg Weight 81.647 kg Physical Exam 2 Narrative: General: No acute distress, AO x3 HEENT: PERRLA, pupils bilaterally equal and reactive, pallors not present Chest: Normal vesicular breath sounds, no added sounds, equal good air entry bilaterally CVS: S1-S2 regular, no murmurs, no tachycardia, no gallops, no rubs Abdomen: Soft, nontender, no organomegaly, bowel sounds present Neuro: No focal deficits, no facial deformity, AO x3, power 5/5 in all limbs Data 09/21/24 16:42 09/21/24 16:42 Other Labs: Radiology Impressions Abdomen/Pelvis CT 09/21/24 17:57 IMPRESSION: Findings suggestive of acute enterocolitis. Laboratory Results WBC 12.16 10^3/uL (3.29-11.43) H 09/21/24 16:42 RBC 4.95 10^6/uL (3.85-5.65) 09/21/24 16:42 Hgb 15.80 g/dL (11.27-16.99) 09/21/24 16:42 Hct 48.2 % (36-47) H 09/21/24 16:42 MCV 97.4 fl (85-98) 09/21/24 16:42 MCH 31.9 pg (27-33) 09/21/24 16:42 MCHC 32.8 g/dL (30-55) 09/21/24 16:42 RDW 12.7 % (12.1-15.1) 09/21/24 16:42 Plt Count 476 10^3/cmm (157-399) H 09/21/24 16:42 MPV 8.3 fL (7.4-10.4) 09/21/24 16:42 Neut % (Auto) 87.7 % 09/21/24 16:42 Lymph % (Auto) 9.6 % 09/21/24 16:42 [place] % (Auto) 1.9 % 09/21/24 16:42 Eos % (Auto) 0.2 % 09/21/24 16:42 Baso % (Auto) 0.2 % 09/21/24 16:42 Neut # (Auto) 10.67 10^3/uL (1.8-7.7) H 09/21/24 16:42 Lymph # (Auto) 1.2 10^3/uL (0.8-4.8) 09/21/24 16:42 [place]cal[place] # (Auto) 0.2 10^3/uL (0.2-0.9) 09/21/24 16:42 Eos # (Auto) 0.0 10^3/uL (0.0-0.8) 09/21/24 16:42 Baso # (Auto) 0.0 10^3/uL (0.0-0.1) 09/21/24 16:42 Nucleated RBC % (auto) 0 % 09/21/24 16:42 Nucleated RBCs # 0.0 /100WBC 09/21/24 16:42 Sodium 138 mmol/L (136-145) 09/21/24 16:42 Potassium 4.5 mmol/L (3.5-5.1) 09/21/24 16:42 Chloride 99 mmol/L (98-107) 09/21/24 16:42 Carbon Dioxide 21 mmol/L (22-29) L 09/21/24 16:42 Anion Gap 22.5 (5-19) H 09/21/24 16:42 BUN 13 mg/dL (6-20) 09/21/24 16:42 Creatinine 0.7 mg/dL (0.5-0.9) 09/21/24 16:42 GFR Calculation 92.7 mL/min (90-130) 09/21/24 16:42 Glucose 101 mg/dL (65-115) 09/21/24 16:42 Calculated Osmolality 286 mOsm/kg (285-295) 09/21/24 16:42 Calcium 10.5 mg/dL (8.5-10.5) 09/21/24 16:42 Total Bilirubin 0.5 mg/dL (0.15-1.2) 09/21/24 16:42 AST 23 U/L (0-32) 09/21/24 16:42 ALT 15 U/L (0-33) 09/21/24 16:42 Alkaline Phosphatase 87 U/L (35-105) 09/21/24 16:42 Total Protein 9.0 g/dL (6.6-8.7) H 09/21/24 16:42 Albumin 5.2 g/dL (3.5-5.2) 09/21/24 16:42 Globulin 3.8 g/dL (1.3-4.6) 09/21/24 16:42 Lipase 37 U/L (13-60) 09/21/24 16:42 HCG, Qual Negative (Negative) 09/21/24 16:42 Urine Color [place] (Yellow) A 09/21/24 17:55 Urine Appearance Cloudy (CLEAR) A 09/21/24 17:55 Urine pH 5.0 (5-7) 09/21/24 17:55 Ur Specific [place] 1.029 (1.005-1.030) 09/21/24 17:55 Urine Protein 2+ (Negative) A 09/21/24 17:55 Urine Glucose (UA) Negative (Normal) 09/21/24 17: Urine Ketones 3+ (Negative) H 09/21/24 17:55 Urine Blood Negative (Negative) 09/21/24 17:55 Urine Nitrate Positive (Negative) A 09/21/24 17:55 Urine Bilirubin 1+ (Negative) H 09/21/24 17:55 Urine Urobilinogen 1.0 mg/dL (Negative) 09/21/24 17:55 Ur Leukocyte Esterase 2+ (Negative) A 09/21/24 17:55 Urine RBC 21-50 /hpf (0-2) H 09/21/24 17:55 Urine WBC 6-10 /hpf (0-5) 09/21/24 17:55 Ur Squamous Epith Cells 21-50 /hpf (0-5) H 09/21/24 17:55 Amorphous Sediment Not Reportable 09/21/24 17:55 Urine Bacteria 2+ /hpf (NONE) H 09/21/24 17:55 Hyaline Casts 1.65 /lpf 09/21/24 17:55 Urine Mucus 1+ /hpf 09/21/24 17:55 Urine Opiates Screen Positive ng/mL (Negative) H 09/21/24 17:55 Ur Barbiturates Screen Negative ng/mL (Negative) 09/21/24 17:55 Ur Phencyclidine Scrn Negative ng/mL (Negative) 09/21/24 17:55 Ur Amphetamines Screen Negative ng/mL (Negative) 09/21/24 17:55 U Benzodiazepines Scrn Negative ng/mL (Negative) 09/21/24 17:55 Urine Cocaine Screen Negative ng/mL (Negative) 09/21/24 17:55 U Marijuana (THC) Screen Negative ng/mL (Negative) 09/21/24 17:55 C. difficile (PCR) Positive (Negative) H 09/22/24 07:54 C.difficile Tox Confrm Negative (Negative) 09/22/24 07:54 A&P Assessment and plan (1) Intractable nausea and vomiting: Patient now with heartburn and will be treated with GI cocktail. She will go up to the floor with IV fluids, Zofran and lorazepam for nausea (2) Urinary tract infection: Urinalysis was contaminated. Will repeat with cath UA if unable to get a clean- catch (3) Gastroenteritis and colitis, viral: C. difficile studies are pending but this appears to be viral. She denies diarrhea associated with particular foods and typically she has 1 bowel movement normally daily and she has not had any weight loss Plan September 22, 2024 Patient admitted overnight with CT evidence of enterocolitis. Her symptoms include abdominal pain vomiting, inability to tolerate any oral intake. C. difficile PCR has returned positive today. Clinical picture is consistent with C. difficile enterocolitis. Currently with normal albumin, white blood cell count less than 15,000, normal creatinine, no evidence of ileus, clinical picture not consistent with fulminant colitis at this time. Will start Dificid 200 mg twice daily and monitor closely for response. add as needed Reglan and scopolamine patch for symptomatic relief of nausea. Continue clear liquid diet as tolerated for now. Changed to inpatient admission. PDMP PDMP Reviewed: Not Reviewed Attestations 2 Medical Necessity Statement*: Needs admission for C. difficile enterocolitis. Coding Level of Care Code Acute Code for Chg Fwd Diagnoses Intractable nausea and vomiting R11.2 Urinary tract infection N30.01 Hematuria presence: with hematuria Urinary tract infection type: acute cystitis Gastroenteritis and colitis, viral A08.4
[2024-09-22] MEDS: scopolamine 1 mg PATCH 1 PATCH TRANSDERMA (17:34)
[2024-09-22] MEDS: metoclopramide 5 mg/mL SDV 2 mL IVP (19:04)
[2024-09-22] MEDS: hyDROXYzine 25 mg Capsule 50 MG PO (23:41)
[2024-09-23] VITALS: BP 145/89; PULSE 75; RESP 17; TEMP 37.1
[2024-09-23] MEDS: haloperidol inj 5 mg/mL INJ 1 mL 2 MG IVP (01:05)
[2024-09-23] MEDS: HYDROcodone-acetaminophen 7.5-325 mg Tablet 1 TAB PO (03:40)
[2024-09-23] MEDS: lactated ringers 1,000 ML 150 ML IV (03:41)
[2024-09-23 04:00] VITALS: BP 149/79; PULSE 76; RESP 17; TEMP 37; O2SAT 91
[2024-09-23] MEDS: ondansetron 2 mg/ML SDV 2 mL 4 MG IVP (05:06)
[2024-09-23 05:19] LABS: Basophils % 0.1 %; Hematocrit 41.8 % (36-47); Lymphocytes # 2.1 10^3/uL (0.8-4.8); Lymphocytes % 14.2 %; Mean Corpuscular HGB Conc 32.8 g/dL (30-55); Mean Corpuscular Hemoglobin 32.2 pg (27-33); Mean Corpuscular Volume 98.1 fl (85-98); Mean Platelet Volume 7.9 fL (7.4-10.4); Monocytes # 0.8 10^3/uL (0.2-0.9); Monocytes % 5.5 %; Neutrophils # 11.61 10^3/uL (1.8-7.7); Neutrophils % 79.7 %; Nucleated Red Blood Cells % 0 %; Platelet Count 380 10^3/cmm (157-399); Red Blood Count 4.26 10^6/uL (3.85-5.65); Red Cell Distribution Width 12.7 % (12.1-15.1); White Blood Count 14.56 10^3/uL (3.29-11.43)
[2024-09-23 05:36] LABS: Alanine Aminotransferase 13 U/L (0-33); Albumin Level 4.4 g/dL (3.5-5.2); Alkaline Phosphatase 65 U/L (35-105); Anion Gap 18.7 (5-19); Aspartate Amino Transferase 18 U/L (0-32); Blood Urea Nitrogen 10 mg/dL (6-20); Calcium 9.5 mg/dL (8.5-10.5); Carbon Dioxide 22 mmol/L (22-29); Chloride 103 mmol/L (98-107); Globulin 2.9 g/dL (1.3-4.6); Glomerular Filtration Rate 92.7 mL/min (90-130); Glucose 109 mg/dL (65-115); Osmolality Calculated 290 mOsm/kg (285-295); Potassium 3.7 mmol/L (3.5-5.1); Sodium 140 mmol/L (136-145); Total Bilirubin 0.4 mg/dL (0.15-1.2); Total Protein 7.3 g/dL (6.6-8.7)
--- NOTE | 2024-09-23 06:22 | PC.NURSE ---
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 she said she was leaving had to get home to son with autism and signed AMA paper and left. IV removed by nurse
== END 2024-09-23 06:10 | disposition left against medical advice (07) | DRG 372 ==
LOC: ER 19:21 → MEDSURG 19:35
PROVIDERS: Admitting Provider Internal Medicine; Emergency Provider Physician Assistant; PCP Family Medicine; Visit Provider Student in an Organized Health Care Education/Training Program
DX: A04.72 Enterocolitis due to Clostridium difficile, not specified as recurrent (principal); N39.0 Urinary tract infection, site not specified; R31.9 Hematuria, unspecified; G47.33 Obstructive sleep apnea (adult) (pediatric); F17.290 Nicotine dependence, other tobacco product, uncomplicated; I10 Essential (primary) hypertension; G40.909 Epilepsy, unspecified, not intractable, without status epilepticus; Z53.29 Procedure and treatment not carried out because of patient's decision for other reasons
CPT/HCPCS: 36415; 74177; 80053; 80306; 81001; 83690; 84703; 85025; 87045; 87324; 87427; 87449; 87493; 96374; 96375; 99285; G0378; J0696; J0744; J0780; J1630; J1953; J2060; J2270; J2405; J2470; J2765; J3490; J7030; J7120; J9999

== ENCOUNTER → 2024-09-26 14:49 | Outpatient (BNVA) | payer MEDICAID, SELFPAY ==
[2024-05-23 13:32] VITALS: BP 131/89; BMI 34.0
== END ==
PROVIDERS: PCP Family Medicine; Visit Provider Clinical Nurse Specialist Adult Health
DX: R30.0 Dysuria (principal)
CPT/HCPCS: 81000

== ENCOUNTER → 2024-10-02 08:58 | Outpatient (BNVA) | payer MEDICAID, SELFPAY ==
[2024-05-23 13:32] VITALS: BP 131/89; BMI 34.0
== END ==
PROVIDERS: PCP Family Medicine; Visit Provider Family Medicine
DX: A04.72 Enterocolitis due to Clostridium difficile, not specified as recurrent (principal); N30.01 Acute cystitis with hematuria
CPT/HCPCS: 87086

== ENCOUNTER → 2024-10-07 08:26 | Outpatient (BNVA) | payer MEDICAID, SELFPAY ==
[2024-05-23 13:32] VITALS: BP 131/89; BMI 34.0
== END ==
PROVIDERS: PCP Family Medicine; Visit Provider Family Medicine
DX: A04.72 Enterocolitis due to Clostridium difficile, not specified as recurrent (principal); N30.01 Acute cystitis with hematuria
CPT/HCPCS: 87493

== ENCOUNTER 2024-10-24 06:53 | Outpatient (CLI) | payer MEDICAID, SELFPAY ==
[2024-05-23 13:32] VITALS: BP 131/89; BMI 34.0
--- NOTE | 2024-10-24 13:30 | USCV_ITS ---
Mary Bernal Age: 39 Gender: F : 1985 Exam Date: 10/24/2024 07:07 Ordering Phys: Bubba Oliva M.D ([email or web address]) Technologist: NIMA [place] [facility] [place]: Cp, Sob BP: 120 / 72 HR: 78 Rhythm: Sinus Technical Quality: Adequate MEASUREMENTS (Male / Female) Normal Values 2D ECHO LV Diastolic Diameter PLAX 3.7 cm 4.2 - 5.9 / 3.9 - 5.3 cm IVS Diastolic Thickness 0.9 cm 0.6 - 1.0 / 0.6 - 0.9 cm IVS Systolic Thickness 1.6 cm LVPW Diastolic Thickness 1.3 cm 0.6 - 1.0 / 0.6 - 0.9 cm LVPW Systolic Thickness 1.4 cm LVOT Diameter 1.9 cm LV Ejection Fraction 2D Teich 58.7 % LV Ejection Fraction MOD 4C 62.0 % LV Ejection Fraction MOD 2C 65.7 % LV Ejection Fraction 2C AL 67.8 % LA Diameter 2.6 cm RA Systolic Volume 4C AL 34.2 ml RA Systolic Volume 4C MOD 33.1 ml LA Sys Volume AL 33.2 cm cubed LA Sys Volume Index AL 17.0 cm cubed/m squared Aorta at Sinotubular Diameter 2.0 cm IVC Diameter 2.5 cm M-MODE LA Ao Ratio MM 1.9 AV Cusp Separation MM 1.3 cm DOPPLER AV Peak Velocity 181.0 cm/s LVOT Peak Velocity 121.0 cm/s AV Area Cont Eq vti 1.9 cm squared AV Area Cont Eq pk 1.9 cm squared MV Peak Velocity 121.0 cm/s MV Area PHT 4.7 cm squared Mitral E to A Ratio 1.0 TR Peak Velocity 276.0 cm/s TR Peak Gradient 30.5 mmHg TV Peak E Velocity 97.0 cm/s PV Peak Velocity 114.0 cm/s FINDINGS Left Ventricle Normal left ventricular size, systolic function and wall thickness, with no regional wall motion abnormalities. Left ventricular ejection fraction is estimated at 60 %. Grade I/IV diastolic dysfunction (abnormal relaxation filling pattern), normal to mildly elevated filling pressures. Right Ventricle The right ventricle is normal in size and function. Right Atrium The right atrium is normal in size. Left Atrium The left atrium is normal in size. Mitral Valve Structurally normal mitral valve without significant stenosis or prolapse. There is no mitral regurgitation. Aortic Valve Mild aortic valve calcification. No aortic valve stenosis. Mild aortic valve regurgitation. Tricuspid Valve Structurally normal tricuspid valve without significant stenosis or regurgitation. Pulmonary artery systolic pressure is normal. Pulmonic Valve Trace pulmonary valve regurgitation. Pericardium Normal pericardium without effusion. Aorta Normal ascending aorta dimension. IVC The inferior vena cava appears normal. CONCLUSIONS Normal left ventricular size, systolic function and wall thickness, with no regional wall motion abnormalities. Left ventricular ejection fraction is estimated at 60 %. Grade I/IV diastolic dysfunction (abnormal relaxation filling pattern), normal to mildly elevated filling pressures. Mild aortic valve calcification. No aortic valve stenosis. Mild aortic valve regurgitation. There is no pericardial effusion. Right atrial pressure is around 5 mm of mercury. Luis E Gray MD (Electronically Signed) Final Date: 24 October 2024 13:52 S
== END 2024-10-24 06:54 | disposition home or self-care (01) ==
LOC: RAD 06:54
PROVIDERS: PCP Family Medicine; Visit Provider Internal Medicine
DX: I51.89 Other ill-defined heart diseases (principal); I35.8 Other nonrheumatic aortic valve disorders; I35.1 Nonrheumatic aortic (valve) insufficiency
CPT/HCPCS: 93306

== ENCOUNTER → 2024-10-30 08:17 | Outpatient (BNVA) | payer MEDICAID, SELFPAY ==
[2024-05-23 13:32] VITALS: BP 131/89; BMI 34.0
== END ==
PROVIDERS: PCP Family Medicine; Visit Provider Nurse Practitioner Family
DX: L73.9 Follicular disorder, unspecified (principal); L30.1 Dyshidrosis [pompholyx]; D22.5 Melanocytic nevi of trunk; L57.8 Other skin changes due to chronic exposure to nonionizing radiation; L81.4 Other melanin hyperpigmentation; L72.0 Epidermal cyst
CPT/HCPCS: 10140; 99214

== ENCOUNTER 2024-12-27 11:13 | Emergency (ER) | payer MEDICAID, SELFPAY ==
[2024-05-23 13:32] VITALS: BP 131/89; BMI 34.0
[2024-12-27] VITALS (8 sets, daily range): BP systolic 138–175; BP diastolic 92–132; PULSE 74–77; RESP 16–18; TEMP 37.3; O2SAT 95–100; BMI 28.5
--- OUTSIDE RECORDS SUMMARY | 2024-12-27 11:18 | XMS_ITS | Clinical Summary ---
Author Organization [facility] Address [address] [facility] [address] [place] [address] Phone Care Team Providers Care Manager Games Name Role Phone Citlaly Stevens MD Primary Care Provider [phone] Allergies Active Allergy Reactions Criticality Noted Date [...] (1 of 3 - 19+ 3-dose series) 03/2003 HPV/Cotest (21-29) 2005 HPV VACCINES (1 - 3-dose SCDM series) 08/26/2011 CERVICAL CANCER SCREENING 2014 HPV/Cotest (30-65) 2014 PAP SMEAR 2014 BREAST CANCER SCREENING 2024 INFLUENZA VACCINE (#1) 2024 Insurance [place]ICAID [place] Care Teams Manager Games Relationship Specialty Start Date End Date Citlaly Stevens MD [address] [phone] PCP - General Family Practice 8/22/22
--- NOTE | 2024-12-27 11:28 | CT_ITS ---
WS: [id number] CT ABDOMEN AND PELVIS WITH CONTRAST HISTORY: abd pain TECHNIQUE: Imaging performed of the abdomen and pelvis with IV contrast. Single phase imaging of the abdomen. Coronal and sagittal reformats are submitted. All CT scans at [facility] use at least one of these dose optimization techniques: automated exposure control; mA and/or kV adjustment per patient size (includes targeted exams where dose is matched to clinical indication); or iterative reconstruction. IV CONTRAST: Omnipaque 350; 100 mL IV. Oral contrast: No DLP: 566.26 mGy.cm COMPARISON: 09/21/2024 Lower thorax: Mild hazy attenuation of groundglass attenuation at the lung bases, similar to 09/21/2024. Heart is normal size. Small hiatal hernia. Liver/biliary system: Normal size liver with focal fatty sparing along the falciform ligament. No intrahepatic duct dilatation. Gallbladder: Prior cholecystectomy. Pancreas: Normal size pancreas and pancreatic duct. No adjacent inflammation. Spleen: Normal size spleen. No mass or infarct. Adrenal glands: Normal. Right kidney: Normal size kidney with no obstruction. Too small to characterize cortical hypodensity mid kidney. Left kidney: Normal size kidney. Cortical hypodensities are too small to characterize. No obstruction. Aorta: Normal. Lymphadenopathy: None. Free fluid: None. GI tract: Long segment gastric wall thickening and submucosal edema involving the antrum. Asymmetric submucosal edema measuring up to 1.2 cm. The lumen is narrowed and there is mild hyperemia within the mucosa. No perforation is evident. No small bowel dilatation. No appendicitis. No GI tract obstruction. Abdominal wall: Unremarkable abdominal wall. No hernia. Pelvis: No free fluid or adenopathy. Small ovarian follicles. Bones: Degenerative disc disease at L4-5 and L5-S1 with interbody spacers. CT/CT abdomen pelvis w con* [id number] IMPRESSION: 1. Long segment gastritis involving the stomach antrum with asymmetric wall th ickening. No perforation. 2. No GI tract obstruction. No colitis identified. 3. Normal appendix. 4. No renal obstruction or perinephric stranding. 5. Prior cholecystectomy.
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
[2024-12-27] MEDS: diphenhydrAMINE 50 mg/mL SDV 1mL IVP (12:22)
[2024-12-27] MEDS: metoclopramide 5 mg/mL SDV 2 mL 10 MG IVP (12:22)
[2024-12-27 12:23] LABS: Hematocrit 43.9 % (36-47); Hemoglobin 14.40 g/dL (11.27-16.99); Mean Corpuscular HGB Conc 32.8 g/dL (30-55); Mean Corpuscular Hemoglobin 32.0 pg (27-33); Mean Corpuscular Volume 97.6 fl (85-98); Nucleated Red Blood Cells % 0 %; Platelet Count 385 10^3/cmm (157-399); Red Blood Count 4.50 10^6/uL (3.85-5.65); White Blood Count 16.81 10^3/uL (3.29-11.43)
--- NOTE | 2024-12-27 12:32 | ECG_ITS ---
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 Measurements Intervals [place] Rate: 81 P: 67 PA: 144 QRS: 65 QRSD: 95 T: 62 QT: 381 QTc: 444 Interpretive Statements SINUS RHYTHM Compared to ECG 02/12/2023 16:09:28 No significant changes Electronically Signed On 12-28-2024 14:35:06 CDT by Nemesio Randolph M.D. [email or web address]
--- NOTE | 2024-12-27 12:32 | XR_ITS ---
WS: [id number] XR chest 1V portable [id number] REASON FOR EXAM: cp FINDINGS: Chest is unchanged compared to 02/12/2023. The heart and the mediastinum are within normal limits. Calcified granulomas disease bilaterally. No acute pulmonary parenchymal or pleural abnormality. No significant abnormality of the bony thorax. XR/XR chest 1V portable [id number] IMPRESSION: Stable chest without acute abnormality.
[2024-12-27 12:37] LABS: Alanine Aminotransferase 25 U/L (0-33); Albumin Level 4.9 g/dL (3.5-5.2); Alkaline Phosphatase 80 U/L (35-105); Anion Gap 19.7 (5-19); Aspartate Amino Transferase 27 U/L (0-32); Blood Urea Nitrogen 15 mg/dL (6-20); Calcium 10.1 mg/dL (8.5-10.5); Carbon Dioxide 25 mmol/L (22-29); Chloride 98 mmol/L (98-107); Creatinine Clr Calc Pharmacy 123.8371; Globulin 3.0 g/dL (1.3-4.6); Glucose 116 mg/dL (65-115); Lipase 36 U/L (13-60); Osmolality Calculated 290 mOsm/kg (285-295); Potassium 3.7 mmol/L (3.5-5.1); Sodium 139 mmol/L (136-145); Total Protein 7.9 g/dL (6.6-8.7)
[2024-12-27 12:44] LABS: HCG, Serum Qual Negative (Negative)
[2024-12-27 12:50] LABS: Glucose Urine UA Negative (Normal); Nitrate Urine Negative (Negative)
[2024-12-27 12:58] LABS: Troponin(5th) Baseline 7 ng/L (0-10)
[2024-12-27 13:02] LABS: Specific Gravity, Urine 1.035 (1.005-1.030)
[2024-12-27 13:03] LABS: Add Urine Microscopic? YES
[2024-12-27] MEDS: iohexol 350 mg/mL 500 mL Btl (per mL) IV (13:19)
[2024-12-27] MEDS: morphine 4 mg/mL SDV 1 mL IVP (13:25)
--- NOTE | 2024-12-27 14:32 | ECG_ITS ---
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 Measurements Intervals Malin Rate: 78 P: 57 WI: 155 QRS: 51 QRSD: 94 T: 55 QT: 380 QTc: 434 Interpretive Statements SINUS RHYTHM POSSIBLE RIGHT VENTRICULAR CONDUCTION DELAY [RSR (QR) IN V1/V2] Compared to ECG 12/27/2024 12:41:08 No significant changes Electronically Signed On 12-28-2024 14:41:44 CDT by Nemesio Randolph M.D. [email or web address]
[2024-12-27 14:47] LABS: Troponin 5 2HR 6.84 ng/L (0-10)
[2024-12-27 14:53] LABS: Troponin 5 2HR Delta -0.16 ABS# (0-10)
[2024-12-27] MEDS: ondansetron 2 mg/ML SDV 2 mL 4 MG IVP (15:08)
--- NOTE | 2024-12-30 07:23 | DCPLANNER ---
messaged gen surg for er f/u
== END 2024-12-27 15:30 | disposition home or self-care (01) ==
PROVIDERS: Emergency Provider Emergency Medicine; PCP Family Medicine
DX: R11.2 Nausea with vomiting, unspecified (principal); R10.84 Generalized abdominal pain; K29.00 Acute gastritis without bleeding; Z79.82 Long term (current) use of aspirin; F17.290 Nicotine dependence, other tobacco product, uncomplicated; I10 Essential (primary) hypertension
CPT/HCPCS: 36415; 71045; 74177; 80053; 81001; 83690; 84484; 84703; 85025; 93005; 96374; 96375; 99285; J1200; J2270; J2405; J2765; J7030

== ENCOUNTER 2024-12-28 20:16 | Emergency (ER) | payer MEDICAID, SELFPAY ==
[2024-05-23 13:32] VITALS: BP 131/89; BMI 34.0
--- OUTSIDE RECORDS SUMMARY | 2024-11-01 09:40 | XMS_ITS ---
Author Organization [facility] Address [address] [place] [id number] Care Team Providers Care Rabies Inspector Name Role Phone Julito Da Silva Unavailable [phone] Mary Acuna Unavailable [phone] Allergies Allergen (clinical drug ingredient) Drug/Non Drug Allergy documented on EMR Reaction Allergy Type Onset Date Status BLUEBERRY (uncoded) Unknown Allergy Active Eggs (uncoded) Unknown Allergy Activ e Blueberry Flavor Unknown Drug Allergy Active Adhesive Unknown Allergy Active Eggs or Egg-derived Products Unknown Drug Allergy Active Latex Latex Unknown Allergy Active Results Component Value Reference Range Notes Urine Drug Screen (cup read) - 78155 Reviewed date:11/01/2024 03:17:53 PM Interpretation: Performing Lab: Notes/Report: OPI + OXY + REASON FOR VISIT 2 month f/u Medications Medication SIG (Take, Route, Frequency, Duration) Notes Start Date End Date Status Albuterol Sulfate Ac tive Ajovy Active HYDROcodone-Acetamino phen 7.5-325 MG Tablet 1 tablet Orally every 8 hrs; Duration: 30 days As needed Do not exceed 3 per day Fill on 10-02-24 08/29/2024 11/01/2024 Active Aspirin Active amLODIPine Besylate Active tiZANidine HCl Activ e Symbicort Active Ramipril Active traZODone HCl Active Vitamin D2 Active Propranolol *Reorder from [facility] for eRx and Interaction Alerts* Active Nurtec Active Methocarbamol *Pick strength-form from [facility] for eRX* Active LORazepam 1 MG Tablet 1 tablet Orally Once; Duration: 1 days As needed Take one hour prior to procedure Fill 06/18/2024 for upcoming procedure 06/18/2024 Active Propranolol HCl Acti ve hydrOXYzine HCl Acti ve HYDROcodone-Acetamino phen Active Isosorbide Mononitrate Active hydrOXYzine HCl *Pick strength-form from [facility] for eRX* Active levETIRAcetam Active Fluticasone Propionate Active Fluoxetine Active DULoxetine HCl Activ e Gabapentin *Pick strength-form from [facility] for eRX* Active Gabapentin Active diazePAM 5 MG Tablet 1 tablet 30 mins prior to Imaging Orally Once a day; Duration: 1 days 05/30/2022 Active Buspirone *Reorder from [facility] for eRx and Interaction Alerts* Active Social History Social History Drugs/Alcohol: Social Info Question Answer Notes Alcohol Screen (Audit-C) Did you have a drink containing alcohol in the past year? No Points 0 Interpretation Negative Drugs Have you used drugs other than those for medical reasons in the past 12 months? Yes Marijuana? Yes Tobacco Use: Social Info Question Answer Notes xTobacco Use/Smoking Are you a current donny ry day smoker Additional Details Category Social Info Options Details Migrated Social History Migrated Social History Alcoholic beverages? - No, Applying for disability? - No, Are you or is there a chance you could be - No, Currently on disability? - No, Drug or substance abuse? - No, exposure to toxins/poisonous substances at work - No, I am interested in quitting. - Yes, Involved in any legal proceedings or lawsuits? - No, Marital Status - , Nonprescription drug use? - No, Participation in detoxification or rehabilitation - No, Smoking - 1/2 PPD, Smoking status (MU) - Current every day smoker, Working currently? - No Problems Problem Type SNOMED Code ICD Code Onset Dates Problem Status W/U Status Risk Notes Problem Cervical radiculopathy (75774757) Cervical radiculopathy (M54.12) Active confirmed Vital Signs Height 62.00 in 11/01/2024 Weight 168 lbs 11/01/2024 BMI 30.72 kg/m2 11/01/2024 Height-cm 157.48 cm 11/01/2024 Weight-kg 76.2 kg 11/01/2024 Encounters Encounter Location Date Provider Diagnosis [facility] [address] [place] [id number] 11/01/2024 Mary Acuna Chronic pain syndrom e G89.4 ; Epilepsy, unspecified, not intractable, without status epilepticus G40.909 ; Pain in thoracic spine M54.6 ; L-S radiculopathy M54.17 ; Postlaminectomy syndrome, not elsewhere classified M96.1 ; Cervical radiculopathy M54.12 ; Unspecified abnormalities of gait and mobility R26.9 ; terminologist (current) use of opiate analgesic Z79.891 and Spondylosis without myelopathy or radiculopathy, lumbosacral region M47.817 Assessments Encounter Date Diagnosis (ICD Code) Assessment Notes Treatment Notes Treatment Clinical Notes Section Notes 11/01/2024 Chronic pain syndrome (ICD-10 - G89.4) I had a nice discussion with the patient today regarding her chronic pain complaints. She continues with Neck, Mid back, lower back pain. She feels she has had some increased neck pain lately as well as radicular symptoms. She has done well with FIONA's in the past noting greater than 50% relief for greater than 3 months. It was January of 2024 that she last needed 1 of these. After discussion she would like to proceed with an episodic FIONA at C6-7. She feels her tizanidine is not working as well for her and makes her tired even the next morning. After discussion, she would like to trial baclofen 10 mg nightly and we will discontinue the tizanidine. I did discuss lifestyle modifications as well as a bowel regimen. She denies any changes in her health since we last seen her any untoward side effects of the medication. She will return to clinic in 2 months/after procedure to monitor for treatment effectiveness and compliance. 11/01/2024 Epilepsy, unspecified, not intractable, without status epilepticus (ICD-10 - G40.909) 11/01/2024 Pain in thoracic spine (ICD-10 - M54.6) 11/01/2024 L-S radiculopathy (ICD-10 - M54.17) 11/01/2024 Postlaminectomy syndrome, not elsewhere classified (ICD-10 - M96.1) 11/01/2024 Cervical radiculopathy (ICD-10 - M54.12) 11/01/2024 Unspecified abnormalities of gait and mobility (ICD-10 - R26.9) 11/01/2024 terminologist (current) use of opiate analgesic (ICD-10 - Z79.891) URINE TESTING TODAY; POINT OF SERVICE Urine [...] has been made aware of this policy. 11/01/2024 Spondylosis without myelopathy or radiculopathy, lumbosacral region (ICD-10 - M47.817) Plan Of Treatment Treatment Notes Assessment Notes Chronic pain syndrome I had a nice discu ssion with the patient today regarding her chronic pain complaints. She continues with Neck, Mid back, lower back pain. She feels she has had some increased neck pain lately as well as radicular symptoms. She has done well with FIONA's in the past noting greater than 50% relief for greater than 3 months. It was January of 2024 that she last needed 1 of these. After discussion she would like to proceed with an episodic FIONA at C6-7. She feels her tizanidine is not working as well for her and makes her tired even the next morning. After discussion, she would like to trial baclofen 10 mg nightly and we will discontinue the tizanidine. I did discuss lifestyle modifications as well as a bowel regimen. She denies any changes in her health since we last seen her any untoward side effects of the medication. She will return to clinic in 2 months/after procedure to monitor for treatment effectiveness and compliance. terminologist (current) use of o piate analgesic URINE TESTING TODAY; POINT OF SERVICE Urine [...] has been made aware of this policy. Next Appt Details Provider Name:Sha Llanes, 02/26/2025 08:40:00 AM, [address] [facility] [place], [address], History and Physical Notes * HPI (History of Present Illness) Category Sub-Category Detail Notes Category Not es Provider Note The patient pr esents today for 2-month follow-up. She is currently prescribed hydrocodone 7.5/325 90/month which is reasonably effective. She also continues with tizanidine but does not feel it is working very well. Last UDS is consistent. Pill count is accurate today. UDS at [id number]-[id number]-wsis today is consistent. We will send to lab for reference and review results with patient at next visit. PDMP was reviewed and found to be compliant with care. Pain Details Pain Location neck, mid back, lower back, headaches, left leg, left knee, left foot Quality sharp, stabbing, thr obbing, dull, ache Severity of pain at its worst 10/10 Severity of pain at its best 4/10 Severity of average pain 6/10 Severity of pain right now 7/10 Severity of pain on medication 6/10 When did you last take your pain medicin e this morning Medication Details Do you have a lock b ox or safe place for medication away from minors and/or others? Yes Do you have any leftover pain medication building up at your house? No Do you understand that pain medication c an be addicting and can cause overdose? Yes Do you feel you can REDUCE the amount of medication you take today? No Opioid Assessment Tools Pill Count 3 pills, Essentially consistent pill count at today's visit (within 1 to 2 days of expected) Last Urine Drug Screen Conf Today's Rapid Urine Drug Screen N/A, dinorah ws consistent with prescribed medication [place] Prescription Monitoring Program [place] PDMP, found to be consistent with treatment history, reviewed today Treatment History Test undergone in the past 3 CT L Spine Past medication you have taken Hydrocodo ne #90 Treatments you have had 12/12/2022 Left LMBR- 11/21/2022 Right LMBR Examination Category Sub-Category Detail Notes Category Not es General Examination General patient is w ell developed, well-nourished, alert and oriented, has good hygiene ENT oral mucosa moist an d pink Eyes pupils are equal, ro und and reactive to light, sclera/conjuctiva normal Respiratory breath sounds are eq ual bilaterally, there is no wheezing Cervical Spine Palpation of Cervical Spine stiff, tend er Palpation of Cervical Facets reveals daylin n in C3 - C7 region bilaterally Thoracic Spine Range of Motion decreased range of motion in all weiss due to pain Lumbar Spine Palpation of Lumbar Spine reveal s hyperextension of lumbar spine and bilateral palpitation of lumbar facets reproduces back pain Palpation of Lumbar Intervertebral Space (Discs) there is no pain noted Bilateral Palpation of Sacroiliac Joint reveals no pain Palpation of Greater Trochanteric Bursa reveals no tenderness on both sides Musculoskeletal - Low Back Muscles Trigger Point s no palpable trigger points are noted Gaenslen's Test Negative Neurological Mental Status awake, oriented to person, oriented to place, oriented to time, memory intact, mood and affect are normal Motor Strength Left UE strength - Flexors: 5/5 Right UE strength - Flexors: 5/5 Left UE strength - Extensors: 5/5 Right UE strength - Extensors: 5/5 Left UE Tone: normal Right UE Tone: normal Left LE strength - Flexors: 5/5 Right LE strength - Flexors: 5/5 Left LE strength - Extensors: 5/5 Right LE strength - Extensors: 5/5 Left LE Tone: normal Right LE Tone: normal Progress Notes * Mary ALVARADO LDOB:[birth year] (39 yo F)Acc No.[id number]:11/01/2024 Progress Notes Patient: Mary Odonnell Provider: PHILIP Garcia :1985 A ge:39 Y S ex:Female Date:11/01/2024 Address:[address] [place], [place] [id number] Check In:02:19 PM 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 Quality s harp, stabbing, throbbing, dull, ache. Severity of pain at its worst 1 0/10. Severity of pain at its best 4 /10. Severity of pain on medication 6 /10. Severity of average pain 6 /10. Severity of pain right now 7 /10. When did you last take your pain medicine t his morning.? M edication Details: Do you have a lock box or safe place for medication away from minors and/or others? Y es. Do you have any leftover pain medication building up at your house? N o. Do you understand that pain medication can be addicting and can cause overdose? Y es. Do you feel you can REDUCE the amount of medication you take today? N o. O pioid Assessment Tools: Pill Count 3 pills, Essentially consistent pill count at today's visit (within 1 to 2 days of expected). Last Urine Drug Screen Conf. Today's Rapid Urine Drug Screen N /A, shows consistent with prescribed medication. [place] Monitoring [place], found to be consistent with treatment history, reviewed today. T reatment History: Test undergone in the past 0 06/03/2022 CT L Spine. Past medication you have taken H ydrocodone #90.? Treatments you have had 0 12/12/2022 Left LMBR- 0 11/21/2022 Right LMBR. Mildred guillen Note: The patient presents today for 2-month f ollow-up. She is currently prescribed hydrocodone 7.5/325 90/month which is reasonably effective. She also continues with tizanidine but does not feel it is working very well. Last UDS is consistent. Pill count is accurate today. UDS at ueoqb-xk-jqjd today is consistent. We will send to lab for reference and review results with patient at next visit. PDMP was reviewed and found to be compliant with care. * ROS: G eneral - Multi System: Constitutional D enies, f ever, recent weight gain, recent weight loss, fatigue. R espiratory D enies, wheezing, shortness of breath, cough, snoring. G astrointestinal D enies, nausea, vomiting, constipation, abdominal pain. P sychiatric D enies, , anxiety, depression, panic attacks, suicidal thoughts. * Medical History: Chicken pox Whooping cough Pneumonia Heart disease Arthritis Bladder infections Epilepsy Migraine headache Back trouble High blood pressure Low blood pressure Ashtma Hives or eczema Bronchitis Medical History Verified * Surgical History: gallbladder tubal back x2 Back surgery Gallbladder removal * Hospitalization/Major Diagno stic Procedure: see surgical hx * Family History: F ather: heart disease, cancer. M other: , heart disease, cancer, stroke. M igrated Family History: : chronic pain,Diabetes,fibromyalgia,Heart disease. * Social History: T obacco Use: x Tobacco Use/Smoking A re you a c urrent every day smoker D rugs/Alcohol: D rugs H ave you used drugs other than those for medical reasons in the past 12 months? Y es M arijuana? Y es Alcohol Screen (Audit-C) D id you have a drink containing alcohol in the past year? N o P oints 0 I nterpretation N egative M igrated Social History: M igrated Social History: Alcoholic beverages? - No, A pplying for disability? - No, A re you or is there a chance you could be - No, C urrently on disability? - No, D rug or substance abuse? - No, e xposure to toxins/poisonous substances at work - No, I am interested in quitting. - Yes, I nvolved in any legal proceedings or lawsuits? - No, M arital Status - , N onprescription drug use? - No, P articipation in detoxification or rehabilitation - No, S moking - 1/2 PPD, S moking status (MU) - Current every day smoker, W orking currently? - No. * Medications: T akingAjovy Albuterol Sulfate amLODIPine Besylate Aspirin Buspirone , Notes to Pharmacist: *Reorder from [facility] for eRx and Interaction Alerts*diazePAM 5 MG Tablet 1 tablet 30 mins prior to Imaging Orally Once a day DULoxetine HCl Fluoxetine Fluticasone Propionate Gabapentin Gabapentin , Notes to Pharmacist: *Pick strength-form from [facility] for eRX*HYDROcodone-Acetaminophen 7.5-325 MG Tablet 1 tablet Orally every 8 hrs As needed Do not exceed 3 per day, stop date 11/01/2024, Notes to Pharmacist: Fill on 5-7-82YEAUZfqnigx-Acetaminophen hydrOXYzine HCl hydrOXYzine HCl , Notes to Pharmacist: *Pick strength-form from [facility] for eRX*Isosorbide Mononitrate levETIRAcetam LORazepam 1 MG Tablet 1 tablet Orally Once As needed Take one hour prior to procedure, Notes to Pharmacist: Fill 06/18/2024 for upcoming procedureMethocarbamol , Notes to Pharmacist: *Pick strength-form from [facility] for eRX*Nurtec Propranolol , Notes to Pharmacist: *Reorder from [facility] for eRx and Interaction Alerts*Propranolol HCl Ramipril Symbicort tiZANidine HCl traZODone HCl Vitamin D2 Taking Ajovy Taking Albuterol Sulfate Taking amLODIPine Besylate Taking Aspirin Taking Buspirone , Notes to Pharmacist: *Reorder from [facility] for eRx and Interaction Alerts*Taking diazePAM 5 MG Tablet 1 tablet 30 mins prior to Imaging Orally Once a day Taking DULoxetine HCl Taking Fluoxetine Taking Fluticasone Propionate Taking Gabapentin Taking Gabapentin , Notes to Pharmacist: *Pick strength-form from [facility] for eRX*Taking HYDROcodone-Acetaminophen 7.5- 325 MG Tablet 1 tablet Orally every 8 hrs As needed Do not exceed 3 per day, stop date 11/01/2024, Notes to Pharmacist: Fill on 0-3-02Joqorl HYDROcodone-Acetaminophen Taking hydrOXYzine HCl Taking hydrOXYzine HCl , Notes to Pharmacist: *Pick strength-form from [facility] for eRX*Taking Isosorbide Mononitrate Taking levETIRAcetam Taking LORazepam 1 MG Tablet 1 tablet Orally Once As needed Take one hour prior to procedure, Notes to Pharmacist: Fill 06/18/2024 for upcoming procedureTaking Methocarbamol , Notes to Pharmacist: *Pick strength-form from [facility] for eRX*Taking Nurtec Taking Propranolol , Notes to Pharmacist: *Reorder from [facility] for eRx and Interaction Alerts*Taking Propranolol HCl Taking Ramipril Taking Symbicort Taking tiZANidine HCl Taking traZODone HCl Taking Vitamin D2 * Allergies: E ggs: AllergyBLUEBERRY: AllergyAdhesive: AllergyEggs or Egg-derived ProductsBlueberry FlavorLatexyesAllergies Verified. Objective: * Vitals: H t: 62.00 in, Wt:168lbs, Wt-k.2 kg, BMI:30.72Index, Ht-cm: 157.48 cm. * P ast Orders: L ab:Urine Confirmation Panel (instrument) - [id number] (Order Date - 08/29/2024) (Collection Date & Time - 08/29/2024) Value Reference Range 6-Acetylmorphine 0 <6 - ng/mL 7-Aminoclonazepam 0 <60 - ng/mL Alprazolam 0 <60 - ng/mL Amphetamine 0 <75 - ng/mL aOH-Alprazolam 0 <60 - ng/mL Buprenorphine 0.0 <7.5 - ng/mL Norbuprenorphine 0.0 <37.5 - ng/mL Carisoprodol 0 <75 - ng/mL Codeine 0 <75 - ng/mL EDDP 0 <75 - ng/mL Fentanyl 0 <6 - ng/mL Hydrocodone >5000 > <75 - ng/mL Hydromorphone 414 H <75 - ng/mL Lorazepam 0 <60 - ng/mL MDMA 0 <75 - ng/mL Meperidine 0.0 <37.5 - ng/mL Meprobamate 0 <75 - ng/mL Methamphetamine 29 <75 - ng/mL Methadone 17 <75 - ng/mL Morphine 0 <75 - ng/mL Nordiazepam 0 <60 - ng/mL Norfentanyl 0 <6 - ng/mL Normeperidine 0.0 <37.5 - ng/mL O-desmethyltramadol 0 <75 - ng/mL Oxazepam 0 <60 - ng/mL Oxycodone 10.1 <37.5 - ng/mL Oxymorphone 0 <75 - ng/mL Phencyclidine 0.0 <7.5 - ng/mL Tapentadol 0.0 <37.5 - ng/mL Temazepam 0 <60 - ng/mL Tramadol 0 <75 - ng/mL Norhydrocodone >5000 > <75 - ng/mL Noroxycodone 0 <38 - ng/mL Pregabalin 0 <225 - ng/mL Gabapentin >54573 > <225 - ng/mL Benzoylecgonine 0.0 <37.5 - ng/mL 4-Hydroxy Xylazine 0 <25 - ng/mL * Examination: G eneral Examination: General p atient is well developed, well-nourished, alert and oriented, has good hygiene. ENT o ral mucosa moist and pink. Eyes p upils are equal, round and reactive to light, sclera/conjuctiva normal. Respiratory b reath sounds are equal bilaterally, there is no wheezing. L umbar Spine: Palpation of Lumbar Spine r eveals hyperextension of lumbar spine and bilateral palpitation of lumbar facets reproduces back pain. Palpation of Lumbar Intervertebral Space (Discs) t here is no pain noted. Bilateral Palpation of Sacroiliac Joint r eveals no pain.? Palpation of Greater Trochanteric Bursa r eveals no tenderness on both sides. C ervical Spine: Palpation of Cervical Spine s tiff, tender. Palpation of Cervical Facets r eveals pain in C3 - C7 region bilaterally. T horacic Spine: Range of Motion d ecreased range of motion in all weiss due to pain. M usculoskeletal - Low Back Muscles: Trigger Points n o palpable trigger points are noted. Gaenslen's Test N egative. N eurological: Mental Status a wake, oriented to person, oriented to place, oriented to time, memory intact, mood and affect are normal. Motor Strength ? Right UE strength - Flexors 5 /5 ? Left UE strength - E xtensors 5 /5 ? Right UE strength - Extensors 5 /5 ? Left UE Tone n ormal ? Right UE Tone n ormal ? Left LE strength - F lexors 5 /5 ? Right LE strength - Flexors 5 /5 ? Left LE strength - E xtensors 5 /5 ? Right LE strength - Extensors 5 /5 ? Left LE Tone n ormal ? Right LE Tone n ormal ? Assessment: * Assessment: 1. C hronic pain syndrome - G89.4 (Primary) 2 . E pilepsy, unspecified, not intractable, without status epilepticus - G40.909 3 . P ain in thoracic spine - M54.6 4 . L -S radiculopathy - M54.17 5 . P ostlaminectomy syndrome, not elsewhere classified - M96.1 6 . C ervical radiculopathy - M54.12? 7. U nspecified abnormalities of gait and mobility - R26.9 8 .?terminologist (current) use of opiate analgesic - Z79.891 9 . S pondylosis without myelopathy or radiculopathy, lumbosacral region - M47.817 Plan: * Treatment: 2. C ervical radiculopathy P rocedure: Epidural, Cervical/ Thoracic, w/ imaging guidance - 35122 (Ordered for 12/11/2024) (Performed Date - 12/24/2024) 3. L ev term (current) use of opiate analgesic L AB: Urine Drug Screen (cup read) - [id number] (Collection Date & Time - 11/01/2024) Value Reference Range O PI + * O XY + Notes: URINE TESTING TODAY; POINT OF SERVICE Urine drug screening will be performed today to monitor compliance with opioid therapy or to serve as a baseline screen for a patient who may be a candidate for opioid therapy in the future, pending UDS results. We will monitor with in- office testing (rapid testing) today and review the results prior to dispensing prescription, as well. Patient has been made aware of this policy.?? * Procedure Codes: 8 0305 DRUG TEST PRSMV DIR OPT OBS IH, Modifiers: QW Billing Information: * Visit Code: 90340 Office Visit, Est Pt., Level 4. * Procedure Codes: 20586 DRUG TEST PRSMV DIR OPT OBS IH. Modifiers: QW Care Plan Details* * Electronic signature of Diamond Acuna APRN on 12/28/2024 at 08:19 PM CDT Sign off status: Pending * Provider: PHILIP Garcia Date: 0 11/01/2024 Generated for Ramos [email or web address]/[email or web address] on: 1 08:19 PM CDT
--- OUTSIDE RECORDS SUMMARY | 2024-12-20 05:30 | XMS_ITS ---
Author Organization [facility] Address [address] [place] [address] Care Team Providers Care Thoracic Medicine Specialist Name Role Phone Julito Da Silva Crow [phone] REASON FOR VISIT LT KNEE Encounters Encounter Location Date Provider Diagnosis [facility] [address] [place] [address] 12/20/2024 Julito Da Silva Plan Of Treatment Next Appt Details Provider Name:Sha Llanes, 02/26/2025 08:40:00 AM, [address] [place], [address], Progress Notes * Mary ALVARADO LDOB:[birth year] (39 yo F)Acc No.[id number]:12/20/2024 Progress Notes Patient: Mildred Mary dale Provider: Maryan Da Silva MD :1985 A ge:39 Y S ex:Female Date:12/20/2024 Address:[address] [place], [place] [id number] Subjective: * Chief Complaints: * L T KNEE Care Plan Details* * Electronic signature of Kristin Da Silva MD on 12/28/2024 at 08:19 PM CDT Sign off status: Pending * Provider: Maryan Da Silva MD Date: 0 12/20/2024 Generated for Printi ng/Faxing/eTransmitting on: 1 08:19 PM CDT
--- OUTSIDE RECORDS SUMMARY | 2024-12-28 20:19 | XMS_ITS | Clinical Summary ---
Author Organization [facility] Address [address] [place] [address] Phone Care Team Providers Care Vial Gauger Name Role Phone Citlaly Stevens MD Primary Care Provider [phone] Allergies Active Allergy Reactions Criticality Noted Date [...] (#1) 2024 Insurance MEDICAID [place] Care Teams Vial Gauger Relationship Specialty Start Date End Date Citlaly Stevens MD [address] [id number] PCP - General Family Practice 8/22/22
--- OUTSIDE RECORDS SUMMARY | 2024-12-28 20:20 | XMS_ITS | Patient Health Record ---
Author Organization [facility] Address [address] [place] [address] Care Team Providers Care Youth Associate Name Role Phone Julito Da Silva Unavailable [phone] Migration, Provider Unavailable Unavailable Sha Llanes Unavailable [phone] Mary Acuna Unavailable [phone] Allergies Allergen (clinical drug ingredient) Drug/Non Drug Allergy documented on EMR Reaction Allergy Type Onset Date Status BLUEBERRY (uncoded) Unknown Allergy Active Eggs (uncoded) Unknown Allergy Activ e Blueberry Flavor Unknown Drug Allergy Active Adhesive Unknown Allergy Active Eggs or Egg-derived Products Unknown Drug Allergy Active Latex Latex Unknown Allergy Active Results Component Value Reference Range Flag Notes Urine Drug Screen (cup read) - 48850 Reviewed date:11/01/2024 03:17:53 PM Interpretation: Performing Lab: Notes/Report: OPI + OXY + Urine Confirmation Panel (in strument) - [id number] Reviewed date:09/04/2024 02:55:00 PM Interpretation: Performing Lab: Notes/Report: 6-Acetylmorphine 0 <6 ng/mL N This raymond t was developed and its performance characteristics determined by [facility]. It has not been cleared or approved by the U.S. Food and Drug Administration. 7-Aminoclonazepam 0 <60 ng/mL N This te st was developed and its performance characteristics determined by [facility]. It has not been cleared or approved by the U.S. Food and Drug Administration. Alprazolam 0 <60 ng/mL N This test was developed and its performance characteristics determined by [facility]. It has not been cleared or approved by the U.S. Food and Drug Administration. Amphetamine 0 <75 ng/mL N This test was developed and its performance characteristics determined by [facility]. It has not been cleared or approved by the U.S. Food and Drug Administration. aOH-Alprazolam 0 <60 ng/mL N This test was developed and its performance characteristics determined by [facility]. It has not been cleared or approved by the U.S. Food and Drug Administration. Buprenorphine 0.0 <7.5 ng/mL N This test w as developed and its performance characteristics determined by [facility]. It has not been cleared or approved by the U.S. Food and Drug Administration. Norbuprenorphine 0.0 <37.5 ng/mL N This te st was developed and its performance characteristics determined by [facility]. It has not been cleared or approved by the U.S. Food and Drug Administration. Carisoprodol 0 <75 ng/mL N This test wa s developed and its performance characteristics determined by [facility]. It has not been cleared or approved by the U.S. Food and Drug Administration. Codeine 0 <75 ng/mL N This test was developed and its performance characteristics determined by [facility]. It has not been cleared or approved by the U.S. Food and Drug Administration. EDDP 0 <75 ng/mL N This test was developed and its performance characteristics determined by [facility]. It has not been cleared or approved by the U.S. Food and Drug Administration. Fentanyl 0 <6 ng/mL N This test was developed and its performance characteristics determined by [facility]. It has not been cleared or approved by the U.S. Food and Drug Administration. Hydrocodone >5000 <75 ng/mL > This test was developed and its performance characteristics determined by [facility]. It has not been cleared or approved by the U.S. Food and Drug Administration. Hydromorphone 414 <75 ng/mL H This test w as developed and its performance characteristics determined by [facility]. It has not been cleared or approved by the U.S. Food and Drug Administration. Lorazepam 0 <60 ng/mL N This test was developed and its performance characteristics determined by [facility]. It has not been cleared or approved by the U.S. Food and Drug Administration. MDMA 0 <75 ng/mL N This test was developed and its performance characteristics determined by [facility]. It has not been cleared or approved by the U.S. Food and Drug Administration. Meperidine 0.0 <37.5 ng/mL N This test was developed and its performance characteristics determined by [facility]. It has not been cleared or approved by the U.S. Food and Drug Administration. Meprobamate 0 <75 ng/mL N This test was developed and its performance characteristics determined by [facility]. It has not been cleared or approved by the U.S. Food and Drug Administration. Methamphetamine 29 <75 ng/mL N This test was developed and its performance characteristics determined by [facility]. It has not been cleared or approved by the U.S. Food and Drug Administration. Methadone 17 <75 ng/mL N This test was developed and its performance characteristics determined by [facility]. It has not been cleared or approved by the U.S. Food and Drug Administration. Morphine 0 <75 ng/mL N This test was developed and its performance characteristics determined by [facility]. It has not been cleared or approved by the U.S. Food and Drug Administration. Nordiazepam 0 <60 ng/mL N This test was developed and its performance characteristics determined by [facility]. It has not been cleared or approved by the U.S. Food and Drug Administration. Norfentanyl 0 <6 ng/mL N This test was developed and its performance characteristics determined by [facility]. It has not been cleared or approved by the U.S. Food and Drug Administration. Normeperidine 0.0 <37.5 ng/mL N This test was developed and its performance characteristics determined by [facility]. It has not been cleared or approved by the U.S. Food and Drug Administration. O-desmethyltramadol 0 <75 ng/mL N This test was developed and its performance characteristics determined by [facility]. It has not been cleared or approved by the U.S. Food and Drug Administration. Oxazepam 0 <60 ng/mL N This test was developed and its performance characteristics determined by [facility]. It has not been cleared or approved by the U.S. Food and Drug Administration. Oxycodone 10.1 <37.5 ng/mL N This test was developed and its performance characteristics determined by [facility]. It has not been cleared or approved by the U.S. Food and Drug Administration. Oxymorphone 0 <75 ng/mL N This test was developed and its performance characteristics determined by [facility]. It has not been cleared or approved by the U.S. Food and Drug Administration. Phencyclidine 0.0 <7.5 ng/mL N This test w as developed and its performance characteristics determined by [facility]. It has not been cleared or approved by the U.S. Food and Drug Administration. Tapentadol 0.0 <37.5 ng/mL N This test was developed and its performance characteristics determined by [facility]. It has not been cleared or approved by the U.S. Food and Drug Administration. Temazepam 0 <60 ng/mL N This test was developed and its performance characteristics determined by [facility]. It has not been cleared or approved by the U.S. Food and Drug Administration. Tramadol 0 <75 ng/mL N This test was developed and its performance characteristics determined by [facility]. It has not been cleared or approved by the U.S. Food and Drug Administration. Norhydrocodone >5000 <75 ng/mL > This test was developed and its performance characteristics determined by [facility]. It has not been cleared or approved by the U.S. Food and Drug Administration. Noroxycodone 0 <38 ng/mL N This test wa s developed and its performance characteristics determined by [facility]. It has not been cleared or approved by the U.S. Food and Drug Administration. Pregabalin 0 <225 ng/mL N This test was developed and its performance characteristics determined by [facility]. It has not been cleared or approved by the U.S. Food and Drug Administration. Gabapentin >48074 <225 ng/mL > This test was developed and its performance characteristics determined by [facility]. It has not been cleared or approved by the U.S. Food and Drug Administration. Benzoylecgonine 0.0 <37.5 ng/mL N This raymond t was developed and its performance characteristics determined by [facility]. It has not been cleared or approved by the U.S. Food and Drug Administration. 4-Hydroxy Xylazine 0 <25 ng/mL N This t est was developed and its performance characteristics determined by [facility]. It has not been cleared or approved by the U.S. Food and Drug Administration. Urine Drug Screen (cup read) - [id number] Reviewed date:08/29/2024 03:42:33 PM Interpretation: Performing Lab: Notes/Report: OPI Pos zzzUrine Drug Screen (confir mation by instrument) - 82449 Reviewed date:05/07/2024 01:22:42 PM Interpretation: Performing Lab: Notes/Report: Tox Results Reviewed date:09/04/2024 02:59:26 PM Interpretation: Performing Lab: Notes/Report: Knee Min 3V Right-[id number] Reviewed date:03/25/2024 04:03:26 PM Interpretation: Performing Lab: Notes/Report: [id number] Urine Drug Screen (cup read) - [id number] Reviewed date:07/04/2024 04:31:49 PM Interpretation: Performing Lab: Notes/Report: OPI + Fluoro Needle For Placement - Spine 60800 Reviewed date:02/26/2024 08:30:56 AM Interpretation: Performing Lab: Notes/Report: Knee Min 3V Right-[id number] Reviewed date:04/01/2024 08:47:16 AM Interpretation: Performing Lab: Notes/Report: The report for this exam was dictated at [facility] . FINAL REPORT Read The report for this exam was dictated at [facility] . Reason For Referral No Information Medications Medication SIG (Take, Route, Frequency, Duration) Notes Start Date End Date Status Fluticasone Propionate Active Fluoxetine Active hydrOXYzine HCl *Pick strength-form from [facility] for eRX* Not-Taking DULoxetine HCl Activ e Buspirone [facility]* Active HYDROcodone-Acetamin ophen Not-Taking Gabapentin Not-Takin g diazePAM 5 MG Tablet 1 tablet 30 mins prior to Imaging Orally Once a day; Duration: 1 days 05/30/2022 Not-Taking levETIRAcetam Active Isosorbide Mononitrate Active hydrOXYzine HCl Acti ve Gabapentin *[facility]* Active LORazepam 1 MG Tablet 1 tablet Orally Once; Duration: 1 days As needed Take one hour prior to procedure Fill 06/18/2024 for upcoming procedure 06/18/2024 Not-Taking Ramipril Active Propranolol *Reorder from [facility] for eRx and Interaction Alerts* Active Nurtec Active traZODone HCl Not-Ta erika Methocarbamol *Pick strength-form from [facility] for eRX* Active tiZANidine HCl Not-T aking Propranolol HCl Not- Taking HYDROcodone-Acetamin ophen 7.5-325 MG Tablet 1 tablet Orally every 8 hrs; Duration: 30 days As needed Do not exceed 3 per day Fill on 12-31-24 due to being closed 12/24/2024 01/30/2025 Active Baclofen 10 MG Tablet TAKE ONE TABLET BY MOUTH ONCE DAILY NEEDED Orally Once a day; Duration: 30 days refill 30 days from last rx 12/24/2024 01/23/2025 Active Aspirin Active amLODIPine Besylate Active Albuterol Sulfate Ac tive Ajovy Active Vitamin D2 Active Symbicort Active Social History Social History Drugs/Alcohol: Social [...] Status W/U Status Risk Notes Problem Epilepsy (56920753) Epilepsy, unspecified, not intractable, without status epilepticus (G40.909) 08/30/19 24 Active confirmed Problem Chronic pain syndrome (348741196) Chronic pain syndrome (G89.4) 08/30/19 24 Active confirmed Problem Lumbosacral spondylosis without myelopathy (25925792) Other spondylosis with radiculopathy, lumbosacral region (M47.27) 08/30/19 Active confirmed Problem Lumbosacral spondylosis without myelopathy (disorder) (90418108) Spondylosis without myelopathy or radiculopathy, lumbosacral region (M47.817) 08/30/19 Active confirmed Problem Post-laminectomy syndrome (45044708) Postlaminectomy syndrome, not elsewhere classified (M96.1) 08/30/19 Active confirmed Problem Abnormal gait (42418526) Unspecified abnormalities of gait and mobility (R26.9) 08/30/19 Active confirmed Problem Cervical radiculopathy (58420452) Cervical radiculopathy (M54.12) Active confirmed Problem Internal derangement of left knee (856401519880965 08) Internal derangement of left knee (M23.92) Active confirmed Problem Lumbosacral radiculopathy (6497598) L-S radiculopathy (M54.17) Active confirmed Vital Signs Heart Rate 86 /min 12/20/2024 Oximetry 90 % 12/20/2024 Blood pressure diastolic 72 mm Hg 12/20/2024 Height-cm 157.48 cm 12/20/2024 Weight-kg 77.11 kg 12/20/2024 Height 62 in 12/20/2024 Blood pressure systolic 118 mm Hg 12/20/2024 Weight 170 lbs 12/20/2024 BMI 31.09 kg/m2 12/20/2024 Procedures Procedure Date Ordered Date Performed Result Body Sit e Epidural, Cervical/ Thoracic , w/ imaging guidance - 86319 02/13/2024 02/13/2024 N/A Neurotomy Lumbar/Sacral, 2 o r more levels - 35301, 73397 06/06/2024 06/06/2024 N/A Neurotomy Lumbar/Sacral, 2 o r more levels - 21784, 99378 06/20/2024 06/20/2024 N/A Epidural, Cervical/ Thoracic , w/ imaging guidance - 99196 12/24/2024 12/24/2024 N/A Encounters Encounter Location Date Provider Diagnosis [facility] [place] [address] [place] [address] 11/01/2024 Mary Acuna Chronic pain syndrom e G89.4 ; Epilepsy, unspecified, not intractable, without status epilepticus G40.909 ; Pain in thoracic spine M54.6 ; L-S radiculopathy M54.17 ; Postlaminectomy syndrome, not elsewhere classified M96.1 ; Cervical radiculopathy M54.12 ; Unspecified abnormalities of gait and mobility R26.9 ; termination clerk (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) use of opiate 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 Z79.891 and Spondylosis without myelopathy or radiculopathy, lumbosacral region M47.817 [facility] [address] [place] [address] 12/24/2024 Sha Llanes Cervical radiculopathy M54.12 [facility] [place] [address] [place] [address] 01/04/2024 Mary Acuna [facility] [address] [place] [address] 02/13/2024 Sha Llanes Acute cervical radiculopathy M54.12 [facility] [place] [address] [place] [address] 03/07/2024 Mary Acuna Chronic pain syndrom e G89.4 ; Pain in thoracic spine M54.6 ; Other spondylosis with radiculopathy, lumbosacral region M47.27 ; Postlaminectomy syndrome, not elsewhere classified M96.1 ; Unspecified abnormalities of gait and mobility R26.9 and termination clerk (current) use of opiate analgesic Z79.891 [facility] [address] [facility] [place] [address] 03/25/2024 Julito Rekha Acute pain of right knee M25.561 ; Status post fall Z91.81 and Contusion of right knee, initial encounter S80.01XA [facility] [place] [address] [place] [address] 05/01/2024 Sha Llanes Epilepsy, unspecified, not intractable, without status epilepticus G40.909 ; Chronic pain syndrome G89.4 ; Pain in thoracic spine M54.6 ; L-S radiculopathy M54.17 ; Spondylosis without myelopathy or radiculopathy, lumbosacral region M47.817 ; Postlaminectomy syndrome, not elsewhere classified M96.1 ; Unspecified abnormalities of gait and mobility R26.9 and residential (current) use of opiate analgesic Z79.891 [facility] [address] [place] [address] 06/06/2024 Sha Llanes Spondylosis without myelopathy or radiculopathy, lumbosacral region M47.817 [facility] [address] [place] [address] 06/20/2024 Sha Llanes Spondylosis without myelopathy or radiculopathy, lumbosacral region M47.817 [facility] [place] [address] [place] [address] 07/04/2024 Mary Acuna Chronic pain syndrom e [...] region M47.27 ; Tobacco use Z72.0 ; termination clerk (current) use of opiate analgesic Z79.891 ; Spondylosis without myelopathy or radiculopathy, lumbosacral region M47.817 and Unspecified injury of unspecified lower leg, initial encounter S89.90XA [facility] [place] [address] [place] [address] 08/29/2024 Mary Acuna Chronic pain syndrom e [...] region M47.27 ; Tobacco use Z72.0 ; termination clerk (current) use of opiate analgesic Z79.891 ; Spondylosis without myelopathy or radiculopathy, lumbosacral region M47.817 and Unspecified injury of unspecified lower leg, initial encounter S89.90XA [facility] [address] [place] [address] 11/22/2024 Julito Da Silva Status post lateral meniscectomy of left knee Z98.890 [facility] [address] [place] [address] 12/20/2024 Julito Rekha Internal derangement of left knee M23.92 and Complex tear of medial meniscus of right knee as current injury, subsequent encounter S83.231D [facility] 0 0 01/20/2024 Provider Migration [facility] 0 0 01/21/2024 Provider Migration [facility] [place] [address] [place] [address] 02/09/2024 Sha [facility] [place] [address] [place] [address] 02/12/2024 Sha Falconlatesha [facility] [address] [facility] [place] [address] 02/12/2024 Sha Llanes Cervical radiculopathy M54.12 [facility] [address] [facility] [place] [address] 03/07/2024 Sha Falconlatesha [facility] [place] [address] [place] [address] 04/18/2024 Sha Falconlatesha [facility] [place] [address] [place] [address] 05/29/2024 Sha Krafft L-S radiculopathy M54.17 [facility] [place] [address] [place] [address] 06/18/2024 Sha Krafft L-S radiculopathy M54.17 [facility] [place] [address] [place] [address] 07/04/2024 Sha Krafft Postlaminectomy syndrome, not elsewhere classified M96.1 [facility] [place] [address] [facility] [place] [address] 08/29/2024 Sha Krafft Postlaminectomy syndrome, not elsewhere classified M96.1 [facility] [place] [address] [facility] [place] [address] 11/01/2024 Sha Krafft Postlaminectomy syndrome, not elsewhere classified M96.1 Assessments Encounter Date Diagnosis (ICD Code) Assessment Notes Treatment Notes Treatment Clinical Notes Section Notes 07/04/2024 Postlaminectomy syndrome, not elsewhere classified (ICD-10 - M96.1) 06/18/2024 L-S radiculopathy (ICD-10 - M54.17) 02/12/2024 Cervical radiculopathy (ICD-10 - M54.12) 11/01/2024 Postlaminectomy syndrome, not elsewhere classified (ICD-10 - M96.1) 12/20/2024 Complex tear of medial meniscus of right knee as current injury, subsequent encounter (ICD-10 - S83.231D) Mary's temporary improvement with injection certainly would suggest that there is something internal within the knee. She had a previous lateral meniscectomy. I am concerned about the possibility that she could have recurrent tearing of the meniscus. Other possibilities including chondromalacia or even osteonecrosis could be contributing to her current pain. She has tried her best to exercise on her own. Medicaid will not pay for therapy. I have suggested an MRI of the left knee. 12/20/2024 Internal derangement of left knee (ICD-10 - M23.92) Mary's temporary improvement with injection certainly would suggest that there is something internal within the knee. She had a previous lateral meniscectomy. I am concerned about the possibility that she could have recurrent tearing of the meniscus. Other possibilities including chondromalacia or even osteonecrosis could be contributing to her current pain. She has tried her best to exercise on her own. Medicaid will not pay for therapy. I have suggested an MRI of the left knee. 08/29/2024 Pain in thoracic spine (ICD-10 - M54.6) 12/24/2024 Cervical radiculopathy (ICD-10 - M54.12) 11/22/2024 Status post lateral meniscectomy of left knee (ICD-10 - Z98.890) I am not certain as to what is causing Mary's pain. Unfortunately physical therapy is not an option. I suspect there may be some underlying chondromalacia. I told her we could try corticosteroid injection to see if she helps and she agrees. I will see her in 4 weeks. If she is no better I would suggest an MRI. 05/01/2024 Epilepsy, unspecified, not intractable, without status [...] soon for the rhizotomies. Schedule repeat LMBRs 08/29/2024 Chronic pain syndrome (ICD-10 - G89.4) [...] effects are noted. Last UDS and [place] PER DIEM RN reviewed today. Patient is advised that best [...] Fill on 08/03/24 due to Monday closure 11/01/2024 Epilepsy, unspecified, not intractable, without status epilepticus (ICD-10 - G40.909) 11/01/2024 Chronic pain syndrome (ICD-10 - G89.4) [...] to monitor for treatment effectiveness and compliance. 08/29/2024 Postlaminectomy syndrome, not elsewhere classified (ICD-10 - M96.1) 07/04/2024 Epilepsy, unspecified, not intractable, without status epilepticus (ICD-10 - G40.909) 07/04/2024 Chronic pain syndrome (ICD-10 - G89.4) I had a nice discussion with the patient today regarding her chronic pain complaints. She states she is doing pretty well after her lumbar rhizotomies and feels its helped relieve her pain at least 50%. 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 She just [...] effects are noted. Last UDS and [place] PER DIEM RN reviewed today. Patient is advised that best [...] Fill on 08/03/24 due to Monday closure 02/13/2024 Acute cervical radiculopathy (ICD-10 - M54.12) 03/07/2024 Pain in thoracic spine (ICD-10 - M54.6) 03/07/2024 Chronic pain syndrome (ICD-10 - G89.4) [...] as for biannual appointment with Dr. Llanes. 03/25/2024 Acute pain of right knee (ICD-10 - M25.561) I see nothing structurally wrong with Mary's [...] increases in pain medicine are not required. 06/06/2024 Spondylosis without myelopathy or radiculopathy, lumbosacral region (ICD-10 - M47.817) 06/20/2024 Spondylosis without myelopathy or radiculopathy, lumbosacral region (ICD-10 - M47.817) 03/07/2024 Other spondylosis with radiculopathy, lumbosacral region (ICD-10 - M47.27) 03/25/2024 Contusion of right knee, initial encounter [...] in pain medicine are not required. 05/01/2024 Pain in thoracic spine (ICD-10 - M54.6) 07/04/2024 Pain in thoracic spine (ICD-10 - M54.6) 11/01/2024 Pain in thoracic spine (ICD-10 - M54.6) 08/29/2024 L-S radiculopathy (ICD-10 - M54.17) 05/29/2024 L-S radiculopathy (ICD-10 - M54.17) 05/01/2024 L-S radiculopathy (ICD-10 - M54.17) 08/29/2024 Postlaminectomy syndrome, not elsewhere classified (ICD-10 - M96.1) 11/01/2024 L-S radiculopathy (ICD-10 - M54.17) 07/04/2024 L-S radiculopathy (ICD-10 - M54.17) 03/07/2024 Postlaminectomy syndrome, not elsewhere classified (ICD-10 - M96.1) 03/07/2024 Unspecified abnormalities of gait and mobility (ICD-10 - R26.9) 11/01/2024 Postlaminectomy syndrome, not elsewhere classified (ICD-10 - M96.1) 07/04/2024 Postlaminectomy syndrome, not elsewhere classified (ICD-10 - M96.1) 08/29/2024 Unspecified injury of unspecified lower leg, subsequent encounter (ICD-10 - S89.90XD) 05/01/2024 Spondylosis without myelopathy or radiculopathy, lumbosacral region (ICD-10 - M47.817) 08/29/2024 Unspecified abnormalities of gait and mobility (ICD-10 - R26.9) 11/01/2024 Cervical radiculopathy (ICD-10 - M54.12) 07/04/2024 Unspecified injury of unspecified lower leg, subsequent encounter (ICD-10 - S89.90XD) 05/01/2024 Postlaminectomy syndrome, not elsewhere classified (ICD-10 - M96.1) 03/07/2024 residential (current) use of opiate analgesic (ICD-10 - Z79.891) 05/01/2024 Unspecified abnormalities of gait and mobility (ICD-10 - R26.9) 11/01/2024 Unspecified abnormalities of gait and mobility (ICD-10 - R26.9) 07/04/2024 Unspecified abnormalities of gait and mobility (ICD-10 - R26.9) 08/29/2024 Epilepsy, unspecified, not intractable, without status epilepticus (ICD-10 - G40.909) 08/29/2024 Other instability, unspecified knee (ICD-10 - M25.369) 07/04/2024 Other instability, unspecified knee (ICD-10 - M25.369) 11/01/2024 residential (current) use of opiate analgesic (ICD-10 - [...] has been made aware of this policy. 05/01/2024 termination clerk (current) use of opiate analgesic (ICD-10 - [...] to abide by our urine testing policy. 11/01/2024 Spondylosis without myelopathy or radiculopathy, lumbosacral region (ICD-10 - M47.817) 07/04/2024 Other spondylosis with radiculopathy, lumbosacral region (ICD-10 - M47.27) 08/29/2024 Other spondylosis with radiculopathy, lumbosacral region (ICD-10 - M47.27) 08/29/2024 Tobacco use (ICD-10 - Z72.0) 07/04/2024 Tobacco use (ICD-10 - Z72.0) 07/04/2024 termination clerk (current) use of opiate analgesic (ICD-10 - Z79.891) 08/29/2024 residential (current) use of opiate analgesic (ICD-10 - [...] abide by our urine testing policy. 08/29/2024 Spondylosis without myelopathy or radiculopathy, lumbosacral [...] Order Date Knee 3V 03/25/2024 Prothrombin Time 04759 06/28/2022 Prothrombin Time 05469 07/06/2022 ABORh 20634, 56204 06/28/2022 ABORh 15554, 92692 07/06/2022 Antibody Screen 13781 07/06/2022 Antibody Screen 34647 06/28/2022 Basic Metabolic Panel (BMP) 58035 2022 Basic Metabolic Panel (BMP) 17679 2022 Basic Metabolic Panel (BMP) 34213 2022 CBC w\ Auto Diff 58335 07/06/2022 CBC w\ Auto Diff 18667 06/28/2022 Partial Thromboplastin Time 14091 2022 Partial Thromboplastin Time 13780 2022 Sedimentation Rate 10056 06/21/2022 CBC Reflex Man Diff 46511, 19831 023 CBC Reflex Man Diff 28770, 36825 023 CRP 47541 06/21/2022 Chest PA/Lat-32196 06/28/2022 Chest PA/Lat-23187 07/06/2022 CT L-Spine w/o Contrast incl Recon-61947 06/03/2022 CT L-Spine w/o Contrast incl Recon-06972 05/24/2022 MRI LE JT w/o Cont LT-[id number] 12/20/2024 Electrocardiogram 12 Lead Tracing-84926 06/21/2023 Electrocardiogram 12 Lead Tracing-74018 06/28/2022 WBC Auto Diff--35934 07/13/2022 WBC Auto Diff--32820 07/13/2022 BB [facility]-[id number] 07/06/2022 Next Appt Details Provider Name:Sha Llanes, 02/26/2025 08:40:00 AM, [address] [place], [address], Insurance Providers Payer Name Payer Address Payer Phone Subscriber Number Group Number Insured Name Patient Relationship to Insured Coverage Start Date Coverage End Date [place] [address] [place] [address] [id number] Mary Bernal Self - patient is the insured Medications Administered Medication Instructions Date of Administration Dosage Notes BUPivacaine HCl 11/22/2024 2 mL DEPO-Medrol 11/22/2024 1 mL Lidocaine HCl 11/22/2024 2 mL Lidocaine HCl 11/24/2024 2 mL Medical (General) History Medical History History ICD Code chicken pox whooping cough pneumonia heart disease arthritis bladder infections epilepsy migraine headache back trouble high blood pressure low blood pressure ashtma hives or eczema bronchitis Surgical History Surgery Date(Month/Year) gallbladder tubal back x2 Back surgery Gallbladder removal LT knee arthroscopy with lateral menisce ctomy 06/29/2023 Hospitalization History Reason Date(Month/Year) see surgical hx
[2024-12-28 20:29] VITALS: BP 141/100; PULSE 64; RESP 16; TEMP 36.6; O2SAT 98; BMI 30.1
--- NOTE | 2024-12-28 21:19 | XRR_ITS ---
PROCEDURE INFORMATION: Exam: XR Abdomen Exam date and time: 12/28/2024 9:43 PM Age: 39 years old Clinical indication: Abdominal pain; Prior surgery; Surgery date: 6+ months; Surgery type: Gb. Tubal; C/O epigastric pain. Diagnosed with gastritis based on CT performed 12/27/2024. TECHNIQUE: Imaging protocol: Radiologic exam of the abdomen. Views: 2 Views. Upright and supine views. COMPARISON: CT abdomen pelvis w con* [id number] 12/27/2024 1:13 PM FINDINGS: Gastrointestinal tract: Normal. No bowel dilation. Intraperitoneal space: Normal. No free air. Organs: Cholecystectomy. Bones/joints: Unremarkable for age. XR/XR abdomen min 2V [id number] IMPRESSION: No acute findings.
[2024-12-28] MEDS: sucralfate 1 gm/10 mL Oral Liq UDC 2 GM PO (21:50)
[2024-12-28] MEDS: diphenhydrAMINE 50 mg/mL SDV 1mL IVP (21:52)
--- NOTE | 2024-12-28 21:56 | W.ED.ABDPA2 ---
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 bleeding Condition: Stable Prescriptions: New methylprednisolone [Medrol (Gustavo)] 4 mg tablets,dose pack See Rx Instructions .ROUTE .COMPLEX Qty: 21 0RF Rx Instructions: for 6 days No Action hydrocodone-acetaminophen 7.5-300 mg tablet 1 tab PO TID PRN (Reason: Pain) (DME) nebulizers Misc See Rx Instructions .Route Qty: 1 0RF Rx Instructions: 1 Nebulizer and all required supplies albuterol sulfate 2.5 mg /3 mL (0.083 %) solution for nebulization 2.5 mg inhalation Q4H PRN (Reason: shortness of breath or wheezing) Qty: 180 3RF fluticasone propionate 50 mcg/actuation spray,suspension 2 spray intranasal DAILY Qty: 16 5RF cariprazine 4.5 mg capsule 4.5 mg PO .q hs Qty: 30 1RF Rx Instructions: Take one capsule daily at night fluvoxamine 50 mg tablet See Rx Instructions PO .q hs Qty: 60 0RF Rx Instructions: For 1 week, take 1 tablet daily at bedtime, then increase to 2 tablets at bedtime trazodone 100 mg tablet 150 mg PO DAILY PRN (Reason: insomnia) Rx Instructions: Take up to 1-1/2 tablets if needed at bedtime for insomnia aspirin 325 mg tablet 325 mg PO DAILY hydroxyzine HCl 50 mg tablet 50 mg PO QID PRN (Reason: anxiety) Qty: 120 11RF albuterol sulfate [Ventolin HFA] 90 mcg/actuation HFA aerosol inhaler See Rx Instructions .ROUTE .COMPLEX Qty: 18 5RF Dose Instruction: USE 2 INHALATIONS INTO LUNGS FOUR TIMES DAILY NEEDED FOR SHORTNESS OF BREATH OR WHEEZING Rx Instructions: USE 2 INHALATIONS INTO LUNGS FOUR TIMES DAILY NEEDED FOR SHORTNESS OF BREATH OR WHEEZING amlodipine 2.5 mg tablet 2.5 mg PO DAILY Qty: 90 3RF budesonide-formoterol [Symbicort] 160-4.5 mcg/actuation HFA aerosol inhaler 2 inh inhalation BID Qty: 10.2 5RF ergocalciferol (vitamin D2) 1,250 mcg (50,000 unit) capsule 1,250 mcg PO Q7D Qty: 12 2RF gabapentin 800 mg tablet 800 mg PO TID Qty: 90 5RF isosorbide mononitrate 30 mg tablet extended release 24 hr 15 mg PO BID Qty: 60 3RF levetiracetam 500 mg tablet 500 mg PO BID Qty: 60 5RF propranolol 40 mg tablet 40 mg PO BID Qty: 60 5RF Nurtec ODT 75 mg tablet,disintegrating 75 mg PO .COMPLEX Qty: 16 6RF Rx Instructions: 75 mg PO once in 24 hours, may repeat if headache persists. No more than 2 in 48 hours; simvastatin 20 mg tablet 20 mg PO BEDTIME Qty: 30 5RF ramipril 5 mg capsule 5 mg PO DAILY Qty: 90 3RF niacin 500 mg capsule, extended release 500 mg PO DAILY Qty: 30 5RF Rx Instructions: one tab by mouth at bedtime Ajovy Autoinjector 225 mg/1.5 mL auto-injector See Rx Instructions .ROUTE .COMPLEX Qty: 1.5 6RF Dose Instruction: INJECT 1.5ML SUBCUTANEOUSLY MONTHLY. Rx Instructions: INJECT 1.5ML SUBCUTANEOUSLY MONTHLY. ondansetron 4 mg tablet,disintegrating 4 mg PO QID PRN (Reason: nausea and vomiting) Qty: 40 1RF clobetasol 0.05 % ointment 1 applic TOPICAL BID PRN (Reason: Rash) ondansetron 4 mg tablet,disintegrating 4 mg PO Q6H PRN (Reason: nausea and vomiting) Qty: 14 0RF pantoprazole [Protonix] 40 mg tablet,delayed release (DR/EC) 40 mg PO DAILY Qty: 60 0RF sucralfate 1 gram tablet 1 g PO BID 28 Days Qty: 56 0RF Discharge Orders: Discharge ED (Routine); Ordered 12/29/24 Ordered By: Cecilio Gonzalez Referrals: Jaspreet Connolly MD [Physician, General Surgery] - 1 week Saeed Espinoza DO [Primary Care Provider, Family Practice] Discharge Diet: Clear Liquid Discharge Activity: Resume usual activity Patient Instructions: Clear Liquid Diet (ED), Opioid Safety, Pain Management, Patient Portal & Tc Instructions Activity Restrictions/Additional Instructions: - Your gastritis is beginning to improve from prior. There are no new findings on your CT scan. - do not advance your diet until you have no pain. Clear liquids only. Information was given to you on clear liquids - Add probiotic daily to facilitate bowel movements. - Medrol Dosepak has been sent to the pharmacy. Obtain in the a.m. and start right away as directed - You will need a surgery follow-up to assess the fact if you have inflammatory bowel disease. This has to be done after your current flare cools off. Please contact their office for follow-up appointment in approximately 2 weeks. - Return to ED if you have worsening pain, nausea, vomiting Print Language: Tajik Coding Level of Care Code ED [employer] for Suresh James
[2024-12-28] MEDS: fentaNYL 50 mcg/mL INJ 2mL IVP ×2 (21:58→23:50)
[2024-12-28 22:02] VITALS: BP 140/105; PULSE 87; RESP 17; O2SAT 97
[2024-12-28 22:07] LABS: Lactic Sepsis W/Reflex 1.2 mmol/L (0.5-2.2)
[2024-12-28 22:09] LABS: Glucose Urine UA Negative (Normal); Nitrate Urine Negative (Negative); Specific Gravity, Urine 1.022 (1.005-1.030)
[2024-12-28 22:17] LABS: Add Urine Microscopic? YES; UA Manual Slide Review YES
--- NOTE | 2024-12-28 23:38 | CTR_ITS ---
PROCEDURE INFORMATION: Exam: CT Abdomen And Pelvis With Contrast Exam date and time: 12/29/2024 12:42 AM Age: 39 years old Clinical indication: Abdominal pain; Prior surgery; Surgery date: 6+ months; Surgery type: Gb. Tubal. Lumbar; C/O epigastric pain. Diagnosed with antrum gastritis from CT scan on 12/27/2024. ; Additional info: Refractory abdominal pain TECHNIQUE: Imaging protocol: Computed tomography of the abdomen and pelvis with contrast. Radiation optimization: All CT scans at this facility use at least one of these dose optimization techniques: automated exposure control; mA and/or kV adjustment per patient size (includes targeted exams where dose is matched to clinical indication); or iterative reconstruction. Contrast material: OMNI 350; Contrast volume: 100 ml; Contrast route: INTRAVENOUS (IV); Other contrast: Oral, OMNI 350, 25ML CONTRAST TO 475ML WATER; COMPARISON: CT abdomen pelvis w con* [id number] 12/27/2024 1:13 PM RADIATION DOSE METRICS: Total DLP (mGy-cm): 609.76 FINDINGS: Lungs: Stable left lower lobe air trapping is noted. Liver: Fatty infiltration versus 3rd inflow artifact is noted at the anterior falciform ligament. The liver is otherwise within normal limits. Gallbladder and biliary ducts: The gallbladder is surgically absent. Pancreas: Normal. No ductal dilation. Spleen: Normal. No splenomegaly. Adrenal glands: Normal. No mass. Kidneys and ureters: Subcentimeter hypodensities in both kidneys are too small to accurately characterize. Statistically these represent simple cysts. Stomach and bowel: Previously noted gastric antral wall thickening has decreased since 12/27/2024. The stomach is otherwise within normal limits. Appendix: The appendix is normal. Intraperitoneal space: Unremarkable. No free air. No significant fluid collection. Vasculature: Mild atherosclerosis of the aorta and its major branching vessels is noted. Lymph nodes: Unremarkable. No enlarged lymph nodes. Urinary bladder: Unremarkable as visualized. Reproductive: Unremarkable as visualized. Bones/joints: Posterior spinal decompression at L4-S1 with intervertebral disc spacers. Soft tissues: Unremarkable. CT/CT abdomen pelvis w con* [id number] IMPRESSION: 1. Interval decrease in antral gastritis with comparison to 12/27/2024. Consider follow-up GI referral. Follow-up endoscopy can be considered. 2. Otherwise, no acute process in the abdomen or pelvis to explain the patient's symptoms. 3. Stable left lower lobe air trapping. Nonemergent follow-up CT chest can be obtained for further characterization. COMMENTS: Consistent with the [employer]'s Incidental Findings Committee white paper (J Am Lamont Radiol 2018): Any incidental renal lesion less than 1 cm or classified as too small to characterize, or any incidental cystic renal lesion characterized as simple-appearing, is likely benign. No follow-up imaging is recommended for these lesions per consensus recommendations based on imaging criteria.
[2024-12-28] MEDS: ondansetron 2 mg/ML SDV 2 mL 4 MG IVP (23:48)
[2024-12-29 00:22] VITALS: BP 143/115; PULSE 66; O2SAT 97
[2024-12-29] MEDS: iohexol 350 mg/mL 500 mL Btl (per mL) IV (00:40)
[2024-12-29] MEDS: iohexol 350 mg/mL 500 mL Btl (per mL) PO (00:40)
[2024-12-29] MEDS: lactulose oral liq 20 gm/30 mL UDC 30 GM PO (01:56)
[2024-12-29] MEDS: HYDROmorphone 0.5 MG/0.5 ML INJ 1 MG IVP (01:57)
[2024-12-29] MEDS: metoclopramide 5 mg/mL SDV 2 mL 10 MG IVP (01:57)
[2024-12-29 02:32] VITALS: BP 108/76; PULSE 74; RESP 14; O2SAT 94
== END 2024-12-29 02:33 | disposition home or self-care (01) ==
PROVIDERS: Emergency Provider Physician Assistant; PCP Family Medicine
DX: K29.00 Acute gastritis without bleeding (principal); Z79.82 Long term (current) use of aspirin; F17.290 Nicotine dependence, other tobacco product, uncomplicated; I10 Essential (primary) hypertension
CPT/HCPCS: 36415; 74019; 74177; 81001; 83605; 96361; 96374; 96375; 96376; 99285; J1100; J1171; J1200; J2405; J2765; J3010; J7120; J9999

== ENCOUNTER → 2025-01-03 11:26 | Outpatient (BNVA) | payer MEDICAID, SELFPAY ==
[2024-05-23 13:32] VITALS: BP 131/89; BMI 34.0
== END ==
PROVIDERS: PCP Family Medicine; Visit Provider Student in an Organized Health Care Education/Training Program
DX: R12 Heartburn (principal)
CPT/HCPCS: 99204

== ENCOUNTER 2025-02-04 11:08 | Day surgery (SDC) | payer MEDICAID, SELFPAY ==
[2024-05-23 13:32] VITALS: BP 131/89; BMI 34.0
[2025-02-04 11:25] VITALS: BMI 29.5
[2025-02-04 11:30] LABS: OR HCG Qualitative Urine Negative (Negative)
[2025-02-04 11:35] VITALS: BP 114/78; PULSE 98; RESP 18; TEMP 36.1; O2SAT 95
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
[2025-02-04 12:34] VITALS: BP 126/87; PULSE 98; RESP 16; TEMP 36.6; O2SAT 90
[2025-02-04 12:58] VITALS: BP 135/77; PULSE 89; RESP 16; O2SAT 90
--- NOTE | 2025-02-04 13:15 | ANE.PACU2 ---
Inpatient post-anesthesia follow up: Airway intact: Yes Vital signs: Temperature 97.8 F Pulse Rate 89 Respiratory Rate 16 Blood Pressure 135/77 Pulse Oximetry 90 Oxygen Delivery Me thod Room Air Oxygen Flow Rate Fraction of Inspir ed Oxygen Hydration adequate: Yes Nausea and vomiting: No Pain level: 1 Mental status: Baseline
== END 2025-02-04 13:15 | disposition home or self-care (01) ==
PROVIDERS: Anesthesiology; PCP Family Medicine; Visit Provider Student in an Organized Health Care Education/Training Program
PROC: 0DJ08ZZ Inspection of Upper Intestinal Tract, Via Natural or Artificial Opening Endoscopic (ICD-10-PCS; principal; 2025-02-04 13:00)
DX: R12 Heartburn (principal); K29.70 Gastritis, unspecified, without bleeding; Z79.82 Long term (current) use of aspirin; Z79.891 Long term (current) use of opiate analgesic; G47.33 Obstructive sleep apnea (adult) (pediatric); I10 Essential (primary) hypertension; G40.909 Epilepsy, unspecified, not intractable, without status epilepticus; F17.290 Nicotine dependence, other tobacco product, uncomplicated; J44.9 Chronic obstructive pulmonary disease, unspecified; Z99.81 Dependence on supplemental oxygen; I20.89 Other forms of angina pectoris; K21.9 Gastro-esophageal reflux disease without esophagitis; E78.5 Hyperlipidemia, unspecified; M79.7 Fibromyalgia; F41.8 Other specified anxiety disorders; G62.9 Polyneuropathy, unspecified
CPT/HCPCS: 43239; 81025; 88305; J2704; J7030

== ENCOUNTER → 2025-03-10 11:32 | Outpatient (BNVA) | payer MEDICAID, SELFPAY ==
[2025-03-11 15:45] VITALS: BP 131/89; BMI 34.0
== END ==
PROVIDERS: PCP Family Medicine; Visit Provider Student in an Organized Health Care Education/Training Program
DX: Z51.89 Encounter for other specified aftercare (principal)
CPT/HCPCS: 99213